=== PATIENT | male | born 1955 | race Caucasian/White ===

== ENCOUNTER 2016-09-09 13:21 | Emergency (ER) | payer OTHER ==
[2016-09-09 13:40] VITALS: BP 155/76; PULSE 73; RESP 16; TEMP 97.6
--- NOTE | 2016-09-09 14:08 | ED ---
General Adult HPI - General Chief complaint: Wound/Laceration Stated complaint: Male Time Seen by Provider: 09/09/16 13:40 Source: patient, RN notes reviewed Mode of arrival: ambulatory Limitations: no limitations - History of Present Illness Initial comments: This is a 60-year-old male presents emergency Department complaining that he has multiple pustules in his pubic hairs and on his buttocks. Patient states one of the areas in his pubic region became an abscess and was draining and that is now subsided but he has a small abscess on his buttocks at this time. Patient states this is after he had been sexually active with a woman known to have MRSA. Patient denies any fever chills per patient denies any penile drainage patient denies any burning patient denies any lesions pustules or rash on his scrotum or penis. Patient denies any abdominal pain patient denies any back pain. Patient denies any other symptoms at this time. - Related Data Previous Rx's Medication Instructions Recorded Sulfamethox-Tmp 800-160Mg [Bactrim 2 each PO Q12HR #40 tab 09/09/16 DS 800-160 mg] Allergies Allergy/AdvReac Type Severity Reaction Status Date / Time No Known Allergies Allergy Verified 09/09/16 13:40 Review of Systems ROS Statement: Those systems with pertinent positive or pertinent negative responses have been documented in the HPI. ROS Other: All systems not noted in ROS Statement are negative. Past Medical History Past Medical History: No Reported History Additional Past Medical History / Comment(s): Hepatitis C, chronic back pain History of Any Multi-Drug Resistant Organisms: None Reported Past Surgical History: Appendectomy Past Psychological History: No Psychological Hx Reported Smoking Status: Current every day smoker Past Alcohol Use History: None Reported Past Drug Use History: Marijuana General Exam - General Exam Comments Initial Comments: GENERAL Patient is well-developed and well-nourished. Patient is in mild distress. EYES Patient's pupils are equal and round. Extraocular motion is intact SKIN She has multiple pustules around some of his pubic hairs and he has a couple on his buttocks around the follicles on his buttocks there is one small abscess on the right side of his buttocks just next to the gluteal cleft NEURO The patient is alert and oriented 3 PYSCH Patient has normal interpersonal interactions. MUSCULOSKELETAL All 4 extremities and full range of motion. Limitations: no limitations Course Vital Signs 09/09/16 13:36 Temperature 97.6 F Pulse Rate 73 Respiratory 16 Rate Blood Pressure 155/76 O2 Sat by Pulse 99 Oximetry Medical Decision Making - Medical Decision Making the abscess on his buttocks was only approximately half a centimeter in diameter it was already draining. Disposition Clinical Impression: Folliculitis, MRSA (methicillin resistant staph aureus) culture positive Disposition: HOME SELF-CARE Condition: Good Instructions: MRSA (Methicillin Resistant Staphylococcus Aureus) (ED) Prescriptions: Sulfamethox-Tmp 800-160Mg [Bactrim DS 800-160 mg] 2 each PO Q12HR #40 tab Referrals: Mikael Sun MD [Primary Care Provider] - 1-2 days Time of Disposition: 14:07
== END 2016-09-09 14:15 | disposition home or self-care (01) ==
LOC: EC 13:21
DX: L73.9 Follicular disorder, unspecified (principal); B95.62 Methicillin resistant Staphylococcus aureus infection as the cause of diseases classified elsewhere; F17.200 Nicotine dependence, unspecified, uncomplicated
CPT/HCPCS: 99283

== ENCOUNTER 2017-09-24 11:23 | Emergency (ER) | payer OTHER ==
[2017-09-24 11:29] VITALS: TEMP 98
[2017-09-24] MEDS ORDERED: ORPHENADRINE 30 MG/ML 2 ML VIAL IM STA (11:44)
[2017-09-24] MEDS ORDERED: KETOROLAC 60 MG/2 ML VIAL IM STA (11:44)
--- NOTE | 2017-09-24 11:48 | ED ---
Back Pain HPI - General Chief Complaint: Back Pain/Injury Stated Complaint: Fall Time Seen by Provider: 09/24/17 11:32 Source: patient, RN notes reviewed Limitations: no limitations - History of Present Illness Initial Comments: This is a 61-year-old male with a history of chronic low back pain states he fell 4 days ago striking his lower thoracic back on some sharp rocks. He states he has some bruising and some swelling to the area he states he's got increased pain and has difficulty walking because of the pain. He has no loss of function to his lower extremities no fecal or urinary incontinence reported. This severe pain he also does state he ran out of his Suboxone about a week ago. No fevers chills nausea vomiting sweats or modifying factors. MD Complaint: back pain, back injury, fall - Related Data Previous Rx's Medication Instructions Recorded Sulfamethox-Tmp 800-160Mg [Bactrim 2 each PO Q12HR #40 tab 09/09/16 DS 800-160 mg] Cyclobenzaprine [Flexeril] 10 mg PO TID #14 tab 09/24/17 Hydrocodone/Acetaminophen [[place] 1 each PO Q6HR PRN #12 tab 09/24/17 5-325] Ibuprofen 800 mg PO Q6HR PRN #20 tablet 09/24/17 Allergies Allergy/AdvReac Type Severity Reaction Status Date / Time No Known Allergies Allergy Verified 09/24/17 11:29 Review of Systems ROS Statement: Those systems with pertinent positive or pertinent negative responses have been documented in the HPI. ROS Other: All systems not noted in ROS Statement are negative. Past Medical History Past Medical History: No Reported History Additional Past Medical History / Comment(s): Hepatitis C, chronic back pain History of Any Multi-Drug Resistant Organisms: None Reported Past Surgical History: Appendectomy Past Psychological History: No Psychological Hx Reported Smoking Status: Current every day smoker Past Alcohol Use History: None Reported Past Drug Use History: Marijuana, Prescription Drug Abuse General Exam - General Exam Comments Initial Comments: Physical well-developed well-nourished awake alert oriented 3 male Limitations: no limitations General appearance: alert, anxious, in distress Head exam: Present: atraumatic, normocephalic, normal inspection Eye exam: Present: normal appearance, PERRL, EOMI. Absent: scleral icterus, conjunctival injection, periorbital swelling ENT exam: Present: normal exam, mucous membranes moist Neck exam: Present: normal inspection, full ROM. Absent: tenderness, meningismus, lymphadenopathy Respiratory exam: Present: normal lung sounds bilaterally. Absent: respiratory distress, wheezes, rales, rhonchi, stridor Cardiovascular Exam: Present: regular rate, normal rhythm, normal heart sounds. Absent: systolic murmur, diastolic murmur, rubs, gallop, clicks Extremities exam: Present: normal inspection, full ROM, normal capillary refill. Absent: tenderness, pedal edema, joint swelling, calf tenderness Back exam: Present: tenderness, muscle spasm, paraspinal tenderness, vertebral tenderness, other (Abrasion noted over the lower thoracic spine region no definite step-off or crepitation. The exam is limited as the patient does not allow me to fully examine his lower thoracic spine due to pain. No definite step-off or crepitation as stated no increased localized warmth there is an abrasion seen at the level of proximal ALT 10.). Absent: full ROM, CVA tenderness (R), CVA tenderness (L) Psychiatric exam: Present: normal affect, anxious Skin exam: Present: warm, dry, normal color. Absent: intact Course Vital Signs 09/24/17 11:27 Temperature 98.0 F Pulse Rate 73 Respiratory 20 Rate Blood Pressure 134/80 O2 Sat by Pulse 100 Oximetry Medical Decision Making - Medical Decision Making I did discuss the findings with the patient he is feeling improved after initial medication was given. He'll be discharged on appropriate medication he is instructed to follow-up with his doctor and return when necessary ambulate and weight-bear as tolerated. - Radiology Data Radiology results: report reviewed (I did review the imaging and report or is evidence of a T11-T12 spinous process fracture this does coincide with the area the patient's pain and injury. No evidence of acute subluxation.), image reviewed Disposition Clinical Impression: Mechanical back pain, Fracture of spinous process of thoracic vertebra, Abrasion Disposition: HOME SELF-CARE Condition: Good Instructions: Acute Low Back Pain (ED), Abrasion (ED), Chronic Back Pain (ED), Thoracic Back Strain (ED), Contusion in Adults (ED) Additional Instructions: Weight-bear and ambulate as tolerated. You do have a T11 and T12 spinous process fracture. Prescriptions: Cyclobenzaprine [Flexeril] 10 mg PO TID #14 tab Hydrocodone/Acetaminophen [[place] 5-325] 1 each PO Q6HR PRN #12 tab PRN Reason: Pain Ibuprofen 800 mg PO Q6HR PRN #20 tablet PRN Reason: Pain Is patient prescribed a controlled substance at d/c from ED?: Yes When asked, does pt state using other controlled substances?: Yes If prescribed controlled substance>3 days was MAPS reviewed?: Prescribed <3 Days If opioid is for acute pain is fill amount 7 days or less?: Yes If Rx opioid, was Start Talking consent form obtained?: Yes Referrals: Mikael Sun MD [Primary Care Provider] - 1-2 days Olimpia Lopez DO [Doctor of Osteopathic Medicine] - 1-2 days
--- NOTE | 2017-09-24 12:45 | CT ---
EXAMINATION TYPE: CT [place] lumbar spine wo con DATE OF EXAM: 09/24/2017 COMPARISON: Lumbar spine 05/23/2014 HISTORY: fall and pain CT DLP: 681 mGycm Automated exposure control for dose reduction was used. Helical acquisition obtained through the [place] ac[facility] and lumbar spine. Thoracic and lumbar vertebral bodies are showing some irregularity of the spinous processes at T11 an d T12 at the tip of the process, some small comminuted fractures may be present. There is near anatom ic alignment. No significant spinal stenosis. Facet arthropathy is noted at the lower lumbar spine. D egenerative disc changes are present, there is multilevel spondylosis with some loss of disc height. There is a spinal curvature. Hypodensities are present within the liver noted incidentally which statistically are likely to repre sent cysts. Some groundglass opacity suspected within the right upper lobe is indeterminate and noted incidentally. Some basilar atelectatic changes are present. IMPRESSION: No acute subluxation. Spinous process fractures as described. There may be a right upper lobe pneumonia or alveolitis. Nonspecific liver lesions. Additional findings above.
[2017-09-24 13:31] VITALS: BP 138/69; PULSE 76; RESP 18
== END 2017-09-24 13:30 | disposition home or self-care (01) ==
LOC: EC 11:23
DX: S22.089A Unspecified fracture of T11-T12 vertebra, initial encounter for closed fracture (principal); F41.9 Anxiety disorder, unspecified; F17.200 Nicotine dependence, unspecified, uncomplicated; W01.118A Fall on same level from slipping, tripping and stumbling with subsequent striking against other sharp object, initial encounter; Y92.009 Unspecified place in unspecified non-institutional (private) residence as the place of occurrence of the external cause
CPT/HCPCS: 72128; 72131; 99283; 96372 ×2; L1830; J2360; J1885

== ENCOUNTER → 2017-10-02 | Outpatient (CLI) | payer OTHER ==
[2017-10-02 14:30] LABS: HCT 40.8 % (39.0-53.0); HGB 13.2 gm/dL (13.0-17.5); MCH 30.4 pg (25.0-35.0); MCHC 32.2 g/dL (31.0-37.0); MCV 94.2 fL (80.0-100.0); Mean Platelet Volume 6.9; Platelet Count 194 k/uL (150-450); RBC 4.33 m/uL (4.30-5.90); RDW 12.8 % (11.5-15.5); WBC 8.7 k/uL (3.8-10.6)
[2017-10-02 14:38] LABS: ALT 35 U/L (21-72); AST 31 U/L (17-59); Albumin 3.9 g/dL (3.5-5.0); Alkaline Phosphatase 77 U/L (38-126); Anion Gap 5 mmol/L; Blood Urea Nitrogen 15 mg/dL (9-20); Calcium 8.8 mg/dL (8.4-10.2); Carbon Dioxide 31 mmol/L (22-30); Chloride 104 mmol/L (98-107); Glucose 113 mg/dL (74-99); Sodium 140 mmol/L (137-145); Total Bilirubin 0.4 mg/dL (0.2-1.3); Total Protein 6.6 g/dL (6.3-8.2)
[2017-10-02 15:06] LABS: Prostate Specific Antigen 1.41 ng/mL (0.00-4.00)
[2017-10-02 19:53] LABS: Hepatitis B Core IgM Reactive (Non-Reactive)
[2017-10-03 13:43] LABS: Hepatitis A Antibody IgM Non-Reactive (Non-Reactive)
== END | disposition home or self-care (01) ==
LOC: LABWHC1 13:32
PROVIDERS: ATTEND Family Medicine
DX: Z00.00 Encounter for general adult medical examination without abnormal findings (principal); R53.83 Other fatigue; Z79.899 Other long term (current) drug therapy; Z12.5 Encounter for screening for malignant neoplasm of prostate
CPT/HCPCS: 36415; 80053; 80074; 84153; 85027

== ENCOUNTER 2018-01-29 14:22 | Inpatient (IN) | payer OTHER ==
[2018-01-29] MEDS ORDERED: SODIUM CHLORIDE 0.9% 1,000 ML IV STA ×2 (15:51)
[2018-01-29] MEDS ORDERED: IPRATROPIUM 0.5 MG/2.5 ML NEBU INHALATION STA (15:51)
[2018-01-29] MEDS ORDERED: methylPREDNISolone SOD SUCCI 125 MG/2 ML VIAL IV STA (15:51)
[2018-01-29] MEDS ORDERED: ALBUTEROL NEBULIZED 2.5 MG/3 ML INHALATION STA (15:51)
[2018-01-29] MEDS ORDERED: AZITHROMYCIN 500 MG in SODIUM CHLORIDE 0.9% 250 ML IVPB STA (15:51)
[2018-01-29 16:37] LABS: Basophils % (A) 0 %; Eosinophils % (A) 0 %; HCT 34.9 % (39.0-53.0); HGB 11.4 gm/dL (13.0-17.5); Lymphocytes # (A) 1.3 k/uL (1.0-4.8); Lymphocytes % (A) 12 %; MCH 30.2 pg (25.0-35.0); MCHC 32.7 g/dL (31.0-37.0); MCV 92.3 fL (80.0-100.0); Mean Platelet Volume 7.2; Monocytes # (A) 0.5 k/uL (0-1.0); Monocytes % (A) 5 %; Neutrophils # (A) 9.1 k/uL (1.3-7.7); Neutrophils % (A) 82 %; Platelet Count 178 k/uL (150-450); RBC 3.78 m/uL (4.30-5.90); RDW 12.5 % (11.5-15.5); WBC 11.1 k/uL (3.8-10.6)
[2018-01-29 16:44] LABS: Partial Thromboplastin Time 27.7 sec (22.0-30.0); Prothrombin Time 10.1 sec (9.0-12.0)
--- NOTE | 2018-01-29 16:47 | ED ---
SOB HPI - General Chief Complaint: Shortness of Breath Stated Complaint: poss pneumonia Time Seen by Provider: 01/29/18 15:23 Source: patient, RN notes reviewed, old records reviewed Mode of arrival: ambulatory Limitations: no limitations - History of Present Illness Initial Comments: This is a 62-year-old male to ER for evaluation. Patient presents today for evaluation regards to cough congestion and inability to catch his breath. Patient with any activity or exertion a significant shortness of breath history of COPD not on oxygen. Patient currently not taking any outpatient treatments. Patient does continue to smoke cigarettes. Patient denies any fevers does have increased cough or congestion. No recent travel history or known sick contacts. MD Complaint: shortness of breath, cough -: days(s) (3) Severity: mild Severity scale (1-10): 3 Quality: aching Consistency: constant Improves With: nothing Worsens With: nothing Known History Of: COPD, asthma Context: recent URI Associated Symptoms: denies other symptoms Treatments Prior to Arrival: none - Related Data Home Medications Medication Instructions Recorded Confirmed Methadone HCl [Methadone Intensol] 80 mg PO QAM 01/29/18 01/29/18 Allergies Allergy/AdvReac Type Severity Reaction Status Date / Time No Known Allergies Allergy Verified 01/29/18 15:37 Review of Systems ROS Statement: Those systems with pertinent positive or pertinent negative responses have been documented in the HPI. ROS Other: All systems not noted in ROS Statement are negative. Past Medical History Past Medical History: No Reported History Additional Past Medical History / Comment(s): Hepatitis C, chronic back pain History of Any Multi-Drug Resistant Organisms: MRSA Date of last positivie culture/infection: 2016 MDRO Source:: butt Past Surgical History: Appendectomy Past Psychological History: No Psychological Hx Reported Smoking Status: Current every day smoker Past Alcohol Use History: None Reported Past Drug Use History: Marijuana, Prescription Drug Abuse General Exam Limitations: no limitations General appearance: alert, in no apparent distress, anxious Head exam: Present: atraumatic, normocephalic, normal inspection Eye exam: Present: normal appearance, PERRL, EOMI. Absent: scleral icterus, conjunctival injection, periorbital swelling ENT exam: Present: normal exam, mucous membranes moist Neck exam: Present: normal inspection. Absent: tenderness, meningismus, lymphadenopathy Respiratory exam: Present: normal lung sounds bilaterally, wheezes, accessory muscle use, decreased breath sounds, prolonged expiratory. Absent: respiratory distress, rales, rhonchi, stridor Cardiovascular Exam: Present: regular rate, normal rhythm, normal heart sounds. Absent: systolic murmur, diastolic murmur, rubs, gallop, clicks GI/Abdominal exam: Present: soft, normal bowel sounds. Absent: distended, tenderness, guarding, rebound, rigid Extremities exam: Present: normal inspection, full ROM, normal capillary refill. Absent: tenderness, pedal edema, joint swelling, calf tenderness Back exam: Present: normal inspection Neurological exam: Present: alert, oriented X3, CN II-XII intact Psychiatric exam: Present: normal affect, normal mood Skin exam: Present: warm, dry, intact, normal color. Absent: rash Course Vital Signs 01/29/18 01/29/18 01/29/18 14:51 16:01 16:21 Temperature 98.2 F Pulse Rate 81 77 74 Respiratory 18 22 Rate Blood Pressure 126/68 131/80 O2 Sat by Pulse 93 L 95 Oximetry 01/29/18 01/29/18 01/29/18 16:30 16:43 17:16 Temperature 101 F H Pulse Rate 74 89 Respiratory Rate Blood Pressure 126/76 O2 Sat by Pulse Oximetry - Reevaluation(s) Reevaluation #1: 01/29/18 17:41 Medical record is reviewed Patient does have no significant improvement in breathing currently Medical Decision Making - Medical Decision Making 62 male the ER for evaluation per patient has a for cough or congestion, significant wheezing with exertional dyspnea. Patient be admitted for IV steroids and breathing treatments. Pulmonary evaluation - Lab Data Result diagrams: 01/29/18 16:00 01/29/18 16:00 Lab Results 01/29/18 01/29/18 01/29/18 Range/Units 16:00 16:00 16:00 WBC 11.1 H (3.8-10.6) k/uL RBC 3.78 L (4.30-5.90) m/uL Hgb 11.4 L (13.0-17.5) gm/dL Hct 34.9 L (39.0-53.0) % MCV 92.3 (80.0-100.0) fL MCH 30.2 (25.0-35.0) pg MCHC 32.7 (31.0-37.0) g/dL RDW 12.5 (11.5-15.5) % Plt Count 178 (150-450) k/uL Neutrophils % 82 % Lymphocytes % 12 % Monocytes % 5 % Eosinophils % 0 % Basophils % 0 % Neutrophils # 9.1 H (1.3-7.7) k/uL Lymphocytes # 1.3 (1.0-4.8) k/uL Monocytes # 0.5 (0-1.0) k/uL Eosinophils # 0.0 (0-0.7) k/uL Basophils # 0.0 (0-0.2) k/uL PT (9.0-12.0) sec INR (<1.2) APTT (22.0-30.0) sec Sodium 132 L (137-145) mmol/L Potassium 4.8 (3.5-5.1) mmol/L Chloride 99 (98-107) mmol/L Carbon Dioxide 27 (22-30) mmol/L Anion Gap 6 mmol/L BUN 15 (9-20) mg/dL Creatinine 0.72 (0.66-1.25) mg/dL Est GFR (CKD-EPI)AfAm >90 (>60 ml/min/1.73 sqM) Est GFR (CKD-EPI)NonAf >90 (>60 ml/min/1.73 sqM) Glucose 74 (74-99) mg/dL Calcium 8.3 L (8.4-10.2) mg/dL Magnesium 2.1 (1.6-2.3) mg/dL Total Bilirubin 0.4 (0.2-1.3) mg/dL AST 72 H (17-59) U/L ALT 58 (21-72) U/L Alkaline Phosphatase 84 (38-126) U/L Total Creatine Kinase 445 H (55-170) U/L CK-MB (CK-2) 3.9 H (0.0-2.4) ng/mL CK-MB (CK-2) Rel Index 0.9 Troponin I <0.012 (0.000-0.034) ng/mL NT-Pro-B Natriuret Pep pg/mL Total Protein 6.2 L (6.3-8.2) g/dL Albumin 3.1 L (3.5-5.0) g/dL 01/29/18 01/29/18 Range/Units 16:00 16:00 WBC (3.8-10.6) k/uL RBC (4.30-5.90) m/uL Hgb (13.0-17.5) gm/dL Hct (39.0-53.0) % MCV (80.0-100.0) fL MCH (25.0-35.0) pg MCHC (31.0-37.0) g/dL RDW (11.5-15.5) % Plt Count (150-450) k/uL Neutrophils % % Lymphocytes % % Monocytes % % Eosinophils % % Basophils % % Neutrophils # (1.3-7.7) k/uL Lymphocytes # (1.0-4.8) k/uL Monocytes # (0-1.0) k/uL Eosinophils # (0-0.7) k/uL Basophils # (0-0.2) k/uL PT 10.1 (9.0-12.0) sec INR 1.0 (<1.2) APTT 27.7 (22.0-30.0) sec Sodium (137-145) mmol/L Potassium (3.5-5.1) mmol/L Chloride (98-107) mmol/L Carbon Dioxide (22-30) mmol/L Anion Gap mmol/L BUN (9-20) mg/dL Creatinine (0.66-1.25) mg/dL Est GFR (CKD-EPI)AfAm (>60 ml/min/1.73 sqM) Est GFR (CKD-EPI)NonAf (>60 ml/min/1.73 sqM) Glucose (74-99) mg/dL Calcium (8.4-10.2) mg/dL Magnesium (1.6-2.3) mg/dL Total Bilirubin (0.2-1.3) mg/dL AST (17-59) U/L ALT (21-72) U/L Alkaline Phosphatase (38-126) U/L Total Creatine Kinase (55-170) U/L CK-MB (CK-2) (0.0-2.4) ng/mL CK-MB (CK-2) Rel Index Troponin I (0.000-0.034) ng/mL NT-Pro-B Natriuret Pep 416 pg/mL Total Protein (6.3-8.2) g/dL Albumin (3.5-5.0) g/dL - EKG Data -: EKG Interpreted by Me (EKG shows normal sinus rhythm rate of 73, DC 184, QRS 80, QTC 423) EKG shows normal: sinus rhythm Rate: normal - Radiology Data Radiology results: report reviewed (Chest x-rays negative for acute disease), image reviewed Disposition Clinical Impression: Acute exacerbation of chronic obstructive airways disease Disposition: ADMITTED IP TO THIS HOSP Condition: Fair Is patient prescribed a controlled substance at d/c from ED?: No Referrals: None,Stated [Primary Care Provider] - 1-2 days
[2018-01-29 16:53] LABS: Creatine Kinase 445 U/L (55-170)
[2018-01-29 16:55] LABS: ALT 58 U/L (21-72); AST 72 U/L (17-59); Albumin 3.1 g/dL (3.5-5.0); Alkaline Phosphatase 84 U/L (38-126); Anion Gap 6 mmol/L; Blood Urea Nitrogen 15 mg/dL (9-20); Calcium 8.3 mg/dL (8.4-10.2); Carbon Dioxide 27 mmol/L (22-30); Chloride 99 mmol/L (98-107); Glucose 74 mg/dL (74-99); Magnesium 2.1 mg/dL (1.6-2.3); Potassium 4.8 mmol/L (3.5-5.1); Sodium 132 mmol/L (137-145); Total Bilirubin 0.4 mg/dL (0.2-1.3); Total Protein 6.2 g/dL (6.3-8.2)
[2018-01-29 17:05] LABS: Creatine Kinase MB 3.9 ng/mL (0.0-2.4); Troponin I <0.012 ng/mL (0.000-0.034)
--- NOTE | 2018-01-29 17:11 | XR ---
EXAMINATION TYPE: XR chest 2V DATE OF EXAM: 01/29/2018 COMPARISON: NONE HISTORY: Short of breath and cough TECHNIQUE: Frontal and lateral views of the chest are obtained. FINDINGS: Heart and mediastinum are normal. There is mild coarsening of interstitial markings. There is no heart failure. Costophrenic angles are clear. IMPRESSION: Coarse central markings could relate to bronchitis. Normal heart. No heart failure.
[2018-01-29] MEDS ORDERED: NALOXONE 0.4 MG/ML 1 ML VIAL IV PRN (18:10)
[2018-01-29] MEDS ORDERED: HYDROcodone/APAP 5-325MG 1 EACH TAB PO PRN (18:10)
[2018-01-29] MEDS ORDERED: ACETAMINOPHEN TAB 325 MG TAB PO PRN (18:10)
[2018-01-29] MEDS ORDERED: POLYETHYLENE GLYCOL 3350 17 GM POWD.PACK PO STA (18:31)
--- NOTE | 2018-01-29 18:37 | P.HPIM ---
History of Present Illness H&P Date: 01/29/18 Chief Complaint: COPD exacerbation [age] male with past medical history of COPD and heroin abuse presents the ED for cough, shortness of breath and wheezing. Patient reports a cough productive of yellow and dark green sputum over the past month. Cough is associated with runny nose, nasal congestion and subjective fevers. Patient reports recently losing his PCP, has been out of an inhaler for the past month as well. Patient also reports shortness of breath, wheezing and increased difficulties breathing with the onset of his upper respiratory infection. He denies any exertional shortness of breath or orthopnea. He has a history of heroin abuse, including IVDU, has been clean for 6 weeks on the methadone program on and [place] at [facility]. Patient also has a history of hepatitis C, untreated. He denies any headaches, lower extremity edema, nausea, vomiting, chest pain, palpitations, changes in urination. No changes in appetite or weight. He does report constipation. Last bowel movement about 3-4 weeks ago. In the ED, CBC showed a mild leukocytosis of 11.1. Hemoglobin is 11.4 with hematocrit of 34.9. CMP showed a sodium of 132, calcium of 8.3, AST of 72. His total CPK was 445. Initial troponin was less than 0.012. Chest x-ray shows findings consistent with chronic bronchitis. Patient is admitted for COPD exacerbation. Review of Systems All systems: negative Past Medical History Past Medical History: No Reported History Additional Past Medical History / Comment(s): Hepatitis C, chronic back pain History of Any Multi-Drug Resistant Organisms: MRSA Date of last positivie culture/infection: 2016 MDRO Source:: butt Past Surgical History: Appendectomy Past Psychological History: No Psychological Hx Reported Smoking Status: Current every day smoker Past Alcohol Use History: None Reported Past Drug Use History: Marijuana, Prescription Drug Abuse Medications and Allergies Home Medications Medication Instructions Recorded Confirmed Type Methadone HCl [Methadone Intensol] 80 mg PO QAM 01/29/18 01/29/18 History Allergies Allergy/AdvReac Type Severity Reaction Status Date / Time No Known Allergies Allergy Verified 01/29/18 15:37 Physical Exam Vitals: Vital Signs Temp Pulse Resp BP Pulse Ox 01/29/18 17:30 85 22 103/61 94 L 01/29/18 17:16 89 01/29/18 17:00 85 22 126/76 97 01/29/18 16:43 74 01/29/18 16:30 101 F H 126/76 01/29/18 16:21 74 01/29/18 16:01 77 22 131/80 95 01/29/18 14:51 98.2 F 81 18 126/68 93 L Intake and Output 01/29/18 01/29/18 01/29/18 06:59 14:59 22:59 Other: Weight 58.967 kg General: [non toxic], [no distress], [appears at stated age] Derm: [warm], [dry] Head: [atraumatic], [normocephalic], [symmetric] Eyes: [EOMI], [no lid lag], [anicteric sclera] Mouth: [no lip lesion], [mucus membranes moist] Cardiovascular: [S1S2 reg], [no murmur], [positive posterior tibial pulse bilateral], Lungs: [Coarse breath sounds bilateral with expiratory wheezing], [no accessory muscle use] Abdominal: [Hard], [ nontender to palpation], [no guarding], [no appreciable organomegaly] Ext: [no gross muscle atrophy], [no edema], [no contractures] Neuro: [ CN II-XI grossly intact], [no focal neuro deficits] Psych: [Alert], [oriented], [appropriate affect] Results CBC & Chem 7: 01/29/18 16:00 01/29/18 16:00 Labs: Abnormal Lab Results - Last 24 Hours (Table) 01/29/18 01/29/18 01/29/18 Range/Units 16:00 16:00 16:00 WBC 11.1 H (3.8-10.6) k/uL RBC 3.78 L (4.30-5.90) m/uL Hgb 11.4 L (13.0-17.5) gm/dL Hct 34.9 L (39.0-53.0) % Neutrophils # 9.1 H (1.3-7.7) k/uL Sodium 132 L (137-145) mmol/L Calcium 8.3 L (8.4-10.2) mg/dL AST 72 H (17-59) U/L Total Creatine Kinase 445 H (55-170) U/L CK-MB (CK-2) 3.9 H (0.0-2.4) ng/mL Total Protein 6.2 L (6.3-8.2) g/dL Albumin 3.1 L (3.5-5.0) g/dL Thrombosis Risk Factor Assmnt - Choose All That Apply Any of the Below Risk Factors Present?: Yes Each Factor Represents 1 point: Abnormal pulmonary function (COPD) Other Risk Factors: Yes Each Risk Factor Represents 2 Points: Age 61-74 years Thrombosis Risk Factor Assessment Total Risk Factor Score: 3 Thrombosis Risk Factor Assessment Level: Moderate Risk Assessment and Plan Assessment: Assessment and Plan 1. COPD exacerbation: Likely triggered by smoking, medication non compliance and viral URI/chronic bronchitis. Patient is afebrile with a mild leukocytosis of 11.1. CXR findings consistent with acute bronchitis. O2 per NC to maintain O2 sat > 92%. Continue DuoNeb QID scheduled, Symbicort 2 puff BID, SoluMedrol 60 mg IV Q6H. Start Azithromycin 500 mg PO QD x 3 days for acute bronchitis. FU BCx, EKG to check for QTc 2. Substance abuse: States takes Methadone 80 mg PO QD at [address] [facility] [employer]. Will need to confirm in the AM. Habitrol 21 mg SUBCUT QD. 3. Constipation: 3-4 weeks ago. Start Docusate 100 mg PO QD, Miralax x 1 now. KUB if no BM tomorrow. 4. Leukocytosis: Mild elevation at 11.1. Likely reactive vs. acute bronchitis. Patient is afebrile. Daily CBC. 5. Hep C: Reason for transaminitis (AST of 72). Will need good follow up outPT. 6. DVT/GI Prophylaxis: Heparin 5000 units BID.
[2018-01-29] MEDS: AZITHROMYCIN 500 MG TAB PO SCH (19:20)
[2018-01-29] MEDS: methylPREDNISolone SOD SUCCI 125 MG/2 ML VIAL IV SCH (19:20)
[2018-01-29] MEDS: DOCUSATE 100 MG CAP PO SCH (19:20)
[2018-01-29] MEDS: HEPARIN SODIUM,PORCINE 5,000 UNIT/ML 1 ML VIAL SQ SCH (19:21)
[2018-01-29] MEDS: SODIUM CHLORIDE 0.9% 1,000 ML IV SCH (19:21)
[2018-01-29 20:02] LABS: Glucose,Whole Blood 153 mg/dL (75-99)
[2018-01-29] MEDS: IPRATROPIUM-ALBUTEROL 3 ML NEB INHALATION SCH (20:07)
[2018-01-29] MEDS: SYMBICORT 160-4.5 MCG INHALER INHALATION SCH (20:07)
[2018-01-30] MEDS: methylPREDNISolone SOD SUCCI 125 MG/2 ML VIAL IV SCH ×5 (00:04→23:40)
[2018-01-30] MEDS: SODIUM CHLORIDE 0.9% 1,000 ML IV SCH ×3 (03:58→20:12)
[2018-01-30 05:29] VITALS: BMI 20.3
[2018-01-30 06:59] LABS: Glucose,Whole Blood 156 mg/dL (75-99)
[2018-01-30 08:10] LABS: Basophils % (A) 0 %; Eosinophils % (A) 0 %; HCT 36.8 % (39.0-53.0); HGB 11.8 gm/dL (13.0-17.5); Lymphocytes # (A) 0.7 k/uL (1.0-4.8); Lymphocytes % (A) 11 %; MCH 30.4 pg (25.0-35.0); MCHC 32.1 g/dL (31.0-37.0); MCV 94.5 fL (80.0-100.0); Mean Platelet Volume 7.2; Monocytes # (A) 0.1 k/uL (0-1.0); Monocytes % (A) 2 %; Neutrophils # (A) 5.7 k/uL (1.3-7.7); Neutrophils % (A) 87 %; Platelet Count 177 k/uL (150-450); RDW 12.7 % (11.5-15.5); WBC 6.5 k/uL (3.8-10.6)
[2018-01-30] MEDS: DOCUSATE 100 MG CAP PO SCH ×2 (08:17→20:12)
[2018-01-30] MEDS: HEPARIN SODIUM,PORCINE 5,000 UNIT/ML 1 ML VIAL SQ SCH ×2 (08:17→20:12)
[2018-01-30] MEDS: AZITHROMYCIN 500 MG TAB PO SCH (08:17)
[2018-01-30] MEDS: NICOTINE 21MG/24HR PATCH TRANSDERM SCH ×2 (08:17→08:19)
[2018-01-30 08:37] LABS: ALT 52 U/L (21-72); AST 48 U/L (17-59); Alkaline Phosphatase 77 U/L (38-126); Anion Gap 7 mmol/L; Blood Urea Nitrogen 18 mg/dL (9-20); Calcium 8.8 mg/dL (8.4-10.2); Carbon Dioxide 26 mmol/L (22-30); Chloride 110 mmol/L (98-107); Glucose 154 mg/dL (74-99); Potassium 4.4 mmol/L (3.5-5.1); Sodium 143 mmol/L (137-145); Total Bilirubin 0.4 mg/dL (0.2-1.3); Total Protein 6.1 g/dL (6.3-8.2)
[2018-01-30] MEDS: IPRATROPIUM-ALBUTEROL 3 ML NEB INHALATION SCH ×4 (09:12→19:20)
[2018-01-30] MEDS: SYMBICORT 160-4.5 MCG INHALER INHALATION SCH ×2 (09:12→19:20)
[2018-01-30 11:34] LABS: Glucose,Whole Blood 151 mg/dL (75-99)
[2018-01-30] MEDS: METHADONE 10 MG TAB PO SCH (13:50)
[2018-01-30 17:05] LABS: Glucose,Whole Blood 138 mg/dL (75-99)
--- NOTE | 2018-01-30 18:46 | P.PN ---
Subjective Progress Note Date: 01/30/18 Principal diagnosis: COPD exacerbation Patient was seen and examined. No acute events overnight. Patient reports continued cough and SOB. No changes from yesterday. States is homeless. Objective - Vital Signs Vital signs: Vital Signs Temp 97.6 F 01/30/18 11:55 Pulse 80 01/30/18 16:38 Resp 17 01/30/18 11:55 BP 105/61 01/30/18 11:55 Pulse Ox 93 L 01/30/18 11:55 Intake & Output 01/29/18 01/30/18 01/30/18 18:59 06:59 18:59 Intake Total 680 Output Total 700 Balance -20 Weight 58.967 kg 58.967 kg Intake: Oral 680 Output: Urine 700 Other: Voiding Method Toilet Toilet Urinal Urinal # Voids 2 - Exam General: [non toxic], [no distress], [appears at stated age] Derm: [warm], [dry] Head: [atraumatic], [normocephalic], [symmetric] Eyes: [EOMI], [no lid lag], [anicteric sclera] Mouth: [no lip lesion], [mucus membranes moist] Cardiovascular: [S1S2 reg], [no murmur], [positive posterior tibial pulse bilateral], Lungs: [Coarse breath sounds bilateral with expiratory wheezing], [no accessory muscle use] Abdominal: [Hard], [ nontender to palpation], [no guarding], [no appreciable organomegaly] Ext: [no gross muscle atrophy], [no edema], [no contractures] Neuro: [ CN II-XI grossly intact], [no focal neuro deficits] Psych: [Alert], [oriented], [appropriate affect] - Labs CBC & Chem 7: 01/30/18 07:35 01/30/18 07:35 Labs: Abnormal Lab Results - Last 24 Hours (Table) 01/29/18 01/30/18 01/30/18 Range/Units 20:01 06:55 07:35 RBC 3.90 L (4.30-5.90) m/uL Hgb 11.8 L (13.0-17.5) gm/dL Hct 36.8 L (39.0-53.0) % Lymphocytes # 0.7 L (1.0-4.8) k/uL Chloride (98-107) mmol/L Glucose (74-99) mg/dL POC Glucose (mg/dL) 153 H 156 H (75-99) mg/dL Total Protein (6.3-8.2) g/dL Albumin (3.5-5.0) g/dL 01/30/18 01/30/18 01/30/18 Range/Units 07:35 11:28 17:04 RBC (4.30-5.90) m/uL Hgb (13.0-17.5) gm/dL Hct (39.0-53.0) % Lymphocytes # (1.0-4.8) k/uL Chloride 110 H (98-107) mmol/L Glucose 154 H (74-99) mg/dL POC Glucose (mg/dL) 151 H 138 H (75-99) mg/dL Total Protein 6.1 L (6.3-8.2) g/dL Albumin 3.0 L (3.5-5.0) g/dL Microbiology - Last 24 Hours (Table) 01/29/18 16:00 Blood Culture - Preliminary Blood No Growth after 24 hours Assessment and Plan Assessment: Assessment and Plan 1. COPD exacerbation: Likely triggered by smoking, medication non compliance and viral URI/chronic bronchitis. Patient is afebrile with a mild leukocytosis of 11.1. CXR findings consistent with acute bronchitis. O2 per NC to maintain O2 sat > 92%. Continue DuoNeb QID scheduled, Symbicort 2 puff BID, SoluMedrol 60 mg IV Q6H. Start Azithromycin 500 mg PO QD x 3 days for acute bronchitis BCx prelim negative after 24H. FU BCx, EKG to check for QTc 2. Substance abuse: States takes Methadone 80 mg PO QD at [address] [facility]. Verified by pharmacy. Habitrol 21 mg SUBCUT QD. 3. Constipation: 3-4 weeks ago. Start Docusate 100 mg PO QD, Miralax x 1 now. KUB if no BM tomorrow. 4. Hep C: Reason for transaminitis (AST of 72). Will need good follow up outPT. 5. DVT/GI Prophylaxis: Heparin 5000 units BID. Resolved: Leukocytosis Patient is pending clinical improvement.
[2018-01-30 20:38] LABS: Glucose,Whole Blood 186 mg/dL (75-99)
[2018-01-31] MEDS: methylPREDNISolone SOD SUCCI 125 MG/2 ML VIAL IV SCH ×4 (06:07→23:45)
[2018-01-31 07:19] LABS: Glucose,Whole Blood 142 mg/dL (75-99)
[2018-01-31] MEDS: IPRATROPIUM-ALBUTEROL 3 ML NEB INHALATION SCH ×4 (08:26→19:15)
[2018-01-31] MEDS: SYMBICORT 160-4.5 MCG INHALER INHALATION SCH ×2 (08:26→19:14)
[2018-01-31] MEDS: AZITHROMYCIN 500 MG TAB PO SCH (09:14)
[2018-01-31] MEDS: NICOTINE 21MG/24HR PATCH TRANSDERM SCH (09:14)
[2018-01-31] MEDS: METHADONE 10 MG TAB PO SCH (09:14)
[2018-01-31] MEDS: DOCUSATE 100 MG CAP PO SCH ×2 (09:15→20:00)
[2018-01-31] MEDS: HEPARIN SODIUM,PORCINE 5,000 UNIT/ML 1 ML VIAL SQ SCH ×2 (09:15→20:00)
[2018-01-31 11:15] LABS: Glucose,Whole Blood 142 mg/dL (75-99)
[2018-01-31] MEDS ORDERED: BISACODYL 10 MG SUPP RECTAL STA (12:08)
--- NOTE | 2018-01-31 12:13 | P.PN ---
Subjective Progress Note Date: 01/31/18 Principal diagnosis: COPD exacerbation Patient seen and examined. No acute events overnight per patient reports no improvement in his breathing. Continues with shortness of breath with wheezing. Continues to cough up sputum. He also complains of constipation. Last bowel movement was 3-4 weeks ago. He received Dulcolax by mouth and MiraLAX on admission without relief. He denies any chest pain or palpitations. He is saturating 92% on RA. Objective - Vital Signs Vital signs: Vital Signs Temp 96.9 F L 01/31/18 05:00 Pulse 82 01/31/18 11:49 Resp 16 01/31/18 08:00 BP 130/76 01/31/18 05:00 Pulse Ox 95 01/31/18 05:00 Intake & Output 01/30/18 01/31/18 01/31/18 18:59 06:59 18:59 Intake Total 680 590 Output Total 700 Balance -20 590 Weight 58.967 kg Intake: Oral 680 590 Output: Urine 700 Other: Voiding Method Toilet Toilet Toilet Urinal Urinal Urinal # Voids 2 # Bowel Movements 0 - Exam General: [non toxic], [no distress], [appears at stated age] Derm: [warm], [dry] Head: [atraumatic], [normocephalic], [symmetric] Eyes: [EOMI], [no lid lag], [anicteric sclera] Mouth: [no lip lesion], [mucus membranes moist] Cardiovascular: [S1S2 reg], [no murmur], [positive DPl pulse bilateral] Lungs: [Coarse breath sounds bilateral with expiratory wheezing], [no accessory muscle use] Abdominal: [Hard], [ nontender to palpation], [no guarding], [no appreciable organomegaly] Ext: [no gross muscle atrophy], [no edema], [no contractures] Neuro: [no focal neuro deficits] Psych: [Alert], [oriented], [appropriate affect] - Labs CBC & Chem 7: 01/30/18 07:35 01/30/18 07:35 Labs: Abnormal Lab Results - Last 24 Hours (Table) 01/30/18 01/30/18 01/31/18 Range/Units 17:04 20:37 07:18 POC Glucose (mg/dL) 138 H 186 H 142 H (75-99) mg/dL 01/31/18 Range/Units 11:13 POC Glucose (mg/dL) 142 H (75-99) mg/dL Microbiology - Last 24 Hours (Table) 01/29/18 16:00 Blood Culture - Preliminary Blood No Growth after 24 hours Assessment and Plan Assessment: Assessment and Plan 1. COPD exacerbation: Likely triggered by smoking, medication non compliance and viral URI/chronic bronchitis. Patient is afebrile with a mild leukocytosis of 11.1. CXR findings consistent with acute bronchitis. O2 per NC to maintain O2 sat > 92%. Continue DuoNeb QID scheduled, Symbicort 2 puff BID, SoluMedrol 60 mg IV Q6H. Start Azithromycin 500 mg PO QD x 3 days for acute bronchitis BCx prelim negative after 24H. FU BCx 2. Substance abuse: States takes Methadone 80 mg PO QD at [address] [facility]. Verified by pharmacy. Habitrol 21 mg SUBCUT QD. 3. Constipation: 3-4 weeks ago. Docusate 100 mg pre RECT x 1, Miralax x 1 now. FU KUB 4. Hep C: Reason for transaminitis (AST of 72). Will need good follow up outPT. 5. DVT/GI Prophylaxis: Heparin 5000 units BID. Resolved: Leukocytosis Patient is pending clinical improvement.
[2018-01-31] MEDS: SODIUM CHLORIDE 0.9% 1,000 ML IV SCH ×2 (12:37→18:04)
[2018-01-31] MEDS: POLYETHYLENE GLYCOL 3350 17 GM POWD.PACK PO SCH (12:42)
--- NOTE | 2018-01-31 13:42 | XR ---
EXAMINATION TYPE: XR KUB portable , 2 VIEWS DATE OF EXAM ORDERED: 01/31/2018 HISTORY: Abdominal pain, constipation. COMPARISON: None. FINDINGS: The lung bases are clear. Within the abdomen, the abdominal gas pattern is within normal limits. There is no evidence of obstru ction or free air. There is a moderate amount of stool within the colon. No unusual calcifications ar e seen. IMPRESSION: CONSTIPATION.
[2018-01-31 17:31] LABS: Glucose,Whole Blood 146 mg/dL (75-99)
[2018-01-31 19:49] LABS: Glucose,Whole Blood 215 mg/dL (75-99)
[2018-02-01] MEDS: SODIUM CHLORIDE 0.9% 1,000 ML IV SCH ×2 (04:33→19:28)
[2018-02-01] MEDS: methylPREDNISolone SOD SUCCI 125 MG/2 ML VIAL IV SCH ×3 (06:14→19:30)
[2018-02-01] MEDS: SYMBICORT 160-4.5 MCG INHALER INHALATION SCH ×2 (06:47→20:37)
[2018-02-01] MEDS: IPRATROPIUM-ALBUTEROL 3 ML NEB INHALATION SCH ×4 (06:47→20:37)
[2018-02-01 06:57] LABS: Glucose,Whole Blood 101 mg/dL (75-99)
[2018-02-01 08:10] LABS: HCT 34.5 % (39.0-53.0); HGB 11.1 gm/dL (13.0-17.5); MCH 30.2 pg (25.0-35.0); MCHC 32.3 g/dL (31.0-37.0); MCV 93.6 fL (80.0-100.0); Mean Platelet Volume 7.4; Platelet Count 210 k/uL (150-450); RBC 3.69 m/uL (4.30-5.90); WBC 10.2 k/uL (3.8-10.6)
[2018-02-01 08:26] LABS: ALT 64 U/L (21-72); AST 39 U/L (17-59); Albumin 2.9 g/dL (3.5-5.0); Alkaline Phosphatase 71 U/L (38-126); Anion Gap 6 mmol/L; Blood Urea Nitrogen 24 mg/dL (9-20); Calcium 8.8 mg/dL (8.4-10.2); Carbon Dioxide 26 mmol/L (22-30); Chloride 113 mmol/L (98-107); Creatine Kinase 91 U/L (55-170); Glucose 95 mg/dL (74-99); Potassium 4.3 mmol/L (3.5-5.1); Sodium 145 mmol/L (137-145); Total Bilirubin 0.3 mg/dL (0.2-1.3); Total Protein 5.9 g/dL (6.3-8.2)
[2018-02-01] MEDS: METHADONE 10 MG TAB PO SCH (10:35)
[2018-02-01] MEDS: AZITHROMYCIN 500 MG TAB PO SCH (10:36)
[2018-02-01] MEDS: HEPARIN SODIUM,PORCINE 5,000 UNIT/ML 1 ML VIAL SQ SCH ×2 (10:36→19:31)
[2018-02-01] MEDS: DOCUSATE 100 MG CAP PO SCH ×2 (10:36→19:30)
[2018-02-01] MEDS: NICOTINE 21MG/24HR PATCH TRANSDERM SCH (10:37)
[2018-02-01] MEDS: POLYETHYLENE GLYCOL 3350 17 GM POWD.PACK PO SCH (10:38)
[2018-02-01 11:58] LABS: Glucose,Whole Blood 112 mg/dL (75-99)
--- NOTE | 2018-02-01 13:58 | P.PN ---
Subjective Progress Note Date: 02/01/18 Principal diagnosis: COPD exacerbation Patient seen and examined. No acute events overnight. Patient continues to complain of cough productive of yellow sputum. Patient reports that he can't cough up the sputum. He continues to report shortness of breath, similar to admission. He is saturating 94% on 2 L nasal cannula. Patient reports a large bowel movement this morning. Objective - Vital Signs Vital signs: Vital Signs Temp 97.1 F L 02/01/18 05:00 Pulse 74 02/01/18 12:51 Resp 16 02/01/18 05:00 BP 137/76 02/01/18 05:00 Pulse Ox 94 L 02/01/18 05:00 Intake & Output 01/31/18 02/01/18 02/01/18 18:59 06:59 18:59 Intake Total 240 710 Balance 240 710 Weight 58.967 kg Intake: Oral 240 710 Other: Voiding Method Toilet Toilet Urinal Urinal # Voids 2 3 # Bowel Movements 1 - Exam General: [non toxic], [no distress], [appears at stated age] Derm: [warm], [dry] Head: [atraumatic], [normocephalic], [symmetric] Eyes: [EOMI], [no lid lag], [anicteric sclera] Mouth: [no lip lesion], [mucus membranes moist] Cardiovascular: [S1S2 reg], [no murmur], [positive DPl pulse bilateral] Lungs: [Decreased breath sounds bilaterally with mild expiratory wheezing, improved from yesterday], [no accessory muscle use] Abdominal: [Hard], [ nontender to palpation], [no guarding], [no appreciable organomegaly] Ext: [no gross muscle atrophy], [no edema], [no contractures] Neuro: [no focal neuro deficits] Psych: [Alert], [oriented], [appropriate affect] - Labs CBC & Chem 7: 02/01/18 07:44 02/01/18 07:44 Labs: Abnormal Lab Results - Last 24 Hours (Table) 01/31/18 01/31/18 02/01/18 Range/Units 17:29 19:47 06:56 RBC (4.30-5.90) m/uL Hgb (13.0-17.5) gm/dL Hct (39.0-53.0) % Chloride (98-107) mmol/L BUN (9-20) mg/dL POC Glucose (mg/dL) 146 H 215 H 101 H (75-99) mg/dL Total Protein (6.3-8.2) g/dL Albumin (3.5-5.0) g/dL 02/01/18 02/01/18 02/01/18 Range/Units 07:44 07:44 11:57 RBC 3.69 L (4.30-5.90) m/uL Hgb 11.1 L (13.0-17.5) gm/dL Hct 34.5 L (39.0-53.0) % Chloride 113 H (98-107) mmol/L BUN 24 H (9-20) mg/dL POC Glucose (mg/dL) 112 H (75-99) mg/dL Total Protein 5.9 L (6.3-8.2) g/dL Albumin 2.9 L (3.5-5.0) g/dL Microbiology - Last 24 Hours (Table) 01/29/18 16:00 Blood Culture - Preliminary Blood No Growth after 48 hours Assessment and Plan Assessment: Assessment and Plan 1. COPD exacerbation: Likely triggered by smoking, medication non compliance and viral URI/chronic bronchitis. Patient is afebrile with a mild leukocytosis of 11.1. CXR findings consistent with acute bronchitis. O2 per NC to maintain O2 sat > 92%. Continue DuoNeb QID scheduled, Symbicort 2 puff BID, SoluMedrol 60 mg IV Q6H. Continue Azithromycin 500 mg PO QD x 3 days for acute bronchitis. BCx prelim negative after 48H. Will add Mucinex 1200 mg PO BID. FU BCx (final) 2. Substance abuse: States takes Methadone 80 mg PO QD at [address] [facility]. Verified by pharmacy. Habitrol 21 mg SUBCUT QD. 3. Constipation: 3-4 weeks ago. Continue Miralax 17g PO QD. KUB shows stool burden. 4. Hep C: Will need good follow up outPT. 5. DVT/GI Prophylaxis: Heparin 5000 units BID. Resolved: Leukocytosis Patient is pending clinical improvement. 6 minute walk test tomorrow. Transition to PO steroids tomorrow. 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
[2018-02-01] MEDS: guaiFENesin 600 MG TABLET.ER PO SCH ×2 (16:54→19:30)
[2018-02-01 17:46] LABS: Glucose,Whole Blood 87 mg/dL (75-99)
[2018-02-01 20:13] LABS: Glucose,Whole Blood 140 mg/dL (75-99)
[2018-02-01] MEDS ORDERED: IPRATROPIUM-ALBUTEROL 3 ML NEB INHALATION PRN (21:25)
[2018-02-02] MEDS: methylPREDNISolone SOD SUCCI 125 MG/2 ML VIAL IV SCH ×2 (00:09→05:35)
[2018-02-02 07:03] LABS: Glucose,Whole Blood 139 mg/dL (75-99)
[2018-02-02] MEDS: SYMBICORT 160-4.5 MCG INHALER INHALATION SCH (07:25)
[2018-02-02] MEDS: IPRATROPIUM-ALBUTEROL 3 ML NEB INHALATION SCH ×3 (07:25→15:34)
[2018-02-02] MEDS: METHADONE 10 MG TAB PO SCH (07:44)
[2018-02-02] MEDS: POLYETHYLENE GLYCOL 3350 17 GM POWD.PACK PO SCH (07:44)
[2018-02-02] MEDS: HEPARIN SODIUM,PORCINE 5,000 UNIT/ML 1 ML VIAL SQ SCH (07:44)
[2018-02-02] MEDS: NICOTINE 21MG/24HR PATCH TRANSDERM SCH ×2 (07:44→07:48)
[2018-02-02] MEDS: DOCUSATE 100 MG CAP PO SCH (07:44)
[2018-02-02] MEDS: AZITHROMYCIN 500 MG TAB PO SCH (07:44)
[2018-02-02] MEDS: guaiFENesin 600 MG TABLET.ER PO SCH (07:44)
[2018-02-02] MEDS ORDERED: predniSONE 20 MG TAB PO SCH (09:00)
[2018-02-02 11:48] LABS: Glucose,Whole Blood 104 mg/dL (75-99)
[2018-02-02 12:41] VITALS: BP 129/78; RESP 14; TEMP 97.7
[2018-02-02] MEDS ORDERED: BENZONATATE 100 MG CAP PO PRN (13:50)
[2018-02-02] MEDS ORDERED: BENZONATATE 100 MG CAP PO STA (13:50)
--- NOTE | 2018-02-02 13:51 | P.PN ---
Subjective Progress Note Date: 02/02/18 Principal diagnosis: COPD exacerbation Patient was seen and examined. No acute events overnight. Patient continues to complain of cough, unable to get sputum up. Shortness of breath is improved marginally since admission. He denies any chest pain or palpitations. Patient reports that he is homeless, might be able to stay with a friend. 6 minute walk test pending. Objective - Vital Signs Vital signs: Vital Signs Temp 97.7 F 02/02/18 12:40 Pulse 75 02/02/18 12:40 Resp 14 02/02/18 12:40 BP 129/78 02/02/18 12:40 Pulse Ox 91 L 02/02/18 12:40 Intake & Output 02/01/18 02/02/18 02/02/18 18:59 06:59 18:59 Intake Total 240 240 Output Total 300 Balance -60 240 Intake: Oral 240 240 Output: Urine 300 Other: Voiding Method Toilet Toilet Urinal Urinal # Voids 2 1 # Bowel Movements 2 - Exam General: [non toxic], [no distress], [appears at stated age] Derm: [warm], [dry] Head: [atraumatic], [normocephalic], [symmetric] Eyes: [EOMI], [no lid lag], [anicteric sclera] Mouth: [no lip lesion], [mucus membranes moist] Cardiovascular: [S1S2 reg], [no murmur], [positive DPl pulse bilateral] Lungs: [Decreased breath sounds bilaterally], [no accessory muscle use] Abdominal: [Hard], [ nontender to palpation], [no guarding], [no appreciable organomegaly] Ext: [no gross muscle atrophy], [no edema], [no contractures] Neuro: [no focal neuro deficits] Psych: [Alert], [oriented], [appropriate affect] - Labs CBC & Chem 7: 02/01/18 07:44 02/01/18 07:44 Labs: Abnormal Lab Results - Last 24 Hours (Table) 02/01/18 02/02/18 02/02/18 Range/Units 20:12 07:01 11:47 POC Glucose (mg/dL) 140 H 139 H 104 H (75-99) mg/dL Microbiology - Last 24 Hours (Table) 01/29/18 16:00 Blood Culture - Preliminary Blood No Growth after 72 hours Assessment and Plan Assessment: Assessment and Plan 1. COPD exacerbation: Likely triggered by smoking, medication non compliance and viral URI/chronic bronchitis. Patient is afebrile with a mild leukocytosis of 11.1. CXR findings consistent with acute bronchitis. O2 per NC to maintain O2 sat > 92%. Continue DuoNeb QID scheduled, Symbicort 2 puff BID. SoluMedrol IV switched to Prednisone 60 mg PO QD. Finished Azithromycin 500 mg PO QD x 3 days for acute bronchitis. BCx prelim negative after 72H. Continue Mucinex 1200 mg PO BID and Add Tessalon pearls. FU BCx (final) 2. Substance abuse: States takes Methadone 80 mg PO QD at [address] [facility]. Verified by pharmacy. Habitrol 21 mg SUBCUT QD. 3. Constipation: 3-4 weeks ago. Continue Miralax 17g PO QD. KUB shows stool burden. 4. Hep C: Will need good follow up outPT. 5. DVT/GI Prophylaxis: Heparin 5000 units BID. Resolved: Leukocytosis Patient has improved. 6 minute walk test tomorrow. 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 Will need to discus with case management if he needs home O2 as he does not have a stable living arrangement at this time.
[2018-02-02 15:37] VITALS: PULSE 72
[2018-02-02 17:05] LABS: Glucose,Whole Blood 160 mg/dL (75-99)
[2018-02-02 18:58] LABS: Hemoglobin A1C 5.6 % (4.0-6.0)
== END 2018-02-02 18:00 | disposition home or self-care (01) | DRG 191 ==
LOC: EC 14:22 → 3NMEDONC 17:43
PROVIDERS: ADMIT Family Medicine; ATTEND Family Medicine
DX: J44.1 Chronic obstructive pulmonary disease with (acute) exacerbation (principal); F11.20 Opioid dependence, uncomplicated; J44.0 Chronic obstructive pulmonary disease with (acute) lower respiratory infection; J20.9 Acute bronchitis, unspecified; K59.00 Constipation, unspecified; Z59.0 Homelessness; B19.20 Unspecified viral hepatitis C without hepatic coma; F17.210 Nicotine dependence, cigarettes, uncomplicated; Z79.51 Long term (current) use of inhaled steroids; Z91.128 Patient's intentional underdosing of medication regimen for other reason; Z86.14 Personal history of Methicillin resistant Staphylococcus aureus infection; M54.9 Dorsalgia, unspecified; G89.29 Other chronic pain
CPT/HCPCS: 36415; 71046; 74018; 80053; 82550; 82553; 83036; 83735; 83880; 84484; 85025; 85027; 85610; 85730; 87040; 93005; 94640; 94644; 94760; 96365; 96366; 96375; 99285

== ENCOUNTER 2021-11-20 10:59 | Inpatient (IN) | payer MEDICARE, OTHER ==
[2021-11-20] MEDS ORDERED: IPRATROPIUM-ALBUTEROL 3 ML NEB INHALATION STA ×2 (11:14→12:47)
[2021-11-20] MEDS ORDERED: methylPREDNISolone SOD SUCCI 125 MG/2 ML VIAL IV STA (11:14)
[2021-11-20] MEDS ORDERED: ALBUTEROL NEBULIZED 2.5 MG/3 ML INHALATION STA ×2 (11:23→12:48)
[2021-11-20] MEDS ORDERED: MAGNESIUM SULFATE-D5W PMX 1 GM in DEXTROSE/WATER 1 100ML.BAG IVPB ONE (11:23)
--- NOTE | 2021-11-20 11:34 | ED ---
SOB HPI - General Chief Complaint: Shortness of Breath Stated Complaint: SOB Time Seen by Provider: 11/20/21 11:14 Source: patient Mode of arrival: ambulatory Limitations: no limitations - History of Present Illness Initial Comments: 65-year-old male past medical history of hepatitis C, COPD who presents to the emergency room with shortness of breath. Patient has long-standing history of COPD and does have oxygen at home that he states he uses only when needed which is very infrequently. Over the past week he has had more shortness of breath which took him into an urgent care 2 days ago. He was given a solumedrol injection which she states improved his shortness of breath somewhat. He was instructed on that date to go to the emergency department however patient reports he was too busy to come in. Admits to a nonproductive cough. No fevers or chills. No chest pain. No previous history of cardiac disease. Does have an albuterol inhaler that he has been using more than prescribed. Admits to mild lower extremity edema. No previous cardiac workup. No other alleviating, precipitating or modifying factors - Related Data Home Medications Medication Instructions Recorded Confirmed Albuterol Inhaler [Ventolin Hfa 2 puff INHALATION RT-Q6H PRN 11/20/21 11/20/21 Inhaler] Buprenorphine HCl/Naloxone HCl 1 film SL DAILY 11/20/21 11/20/21 [Suboxone 8 mg-2 mg Sl Film] Allergies Allergy/AdvReac Type Severity Reaction Status Date / Time No Known Allergies Allergy Verified 11/20/21 12:59 Review of Systems ROS Statement: Those systems with pertinent positive or pertinent negative responses have been documented in the HPI. ROS Other: All systems not noted in ROS Statement are negative. Past Medical History Past Medical History: COPD Additional Past Medical History / Comment(s): Hepatitis C, chronic back pain History of Any Multi-Drug Resistant Organisms: MRSA Date of last positivie culture/infection: 2017 MDRO Source:: butt Past Surgical History: Appendectomy Past Anesthesia/Blood Transfusion Reactions: No Reported Reaction Past Psychological History: No Psychological Hx Reported Smoking Status: Current every day smoker Past Alcohol Use History: None Reported Past Drug Use History: Marijuana, Prescription Drug Abuse - Past Family History Father Family Medical History: Hypertension General Exam Limitations: physical limitation General appearance: alert, in distress Head exam: Present: atraumatic, normocephalic, normal inspection Eye exam: Present: normal appearance, PERRL, EOMI. Absent: scleral icterus, conjunctival injection, periorbital swelling ENT exam: Present: normal exam, mucous membranes moist Respiratory exam: Present: respiratory distress, wheezes, accessory muscle use, decreased breath sounds, other (tachypnia, conversational dyspnea) Cardiovascular Exam: Present: normal rhythm, tachycardia GI/Abdominal exam: Present: soft, normal bowel sounds. Absent: distended, tenderness, guarding, rebound, rigid Neurological exam: Present: alert, oriented X3, CN II-XII intact Psychiatric exam: Present: anxious Course Vital Signs 11/20/21 11/20/21 11/20/21 11:01 11:27 11:31 Temperature 97.0 F L Pulse Rate 109 H 134 H Pulse Rate [ Jury Consultant ] Respiratory 32 H 36 H 36 H Rate Blood Pressure 92/46 109/66 Blood Pressure [Right Arm] O2 Sat by Pulse 93 L 93 L Oximetry Fraction of Inspired Oxygen (FIO2) 11/20/21 11/20/21 11/20/21 11:39 11:55 12:02 Temperature Pulse Rate 134 H 104 H 102 H Pulse Rate [ Jury Consultant ] Respiratory 36 H Rate Blood Pressure 105/77 Blood Pressure [Right Arm] O2 Sat by Pulse 95 Oximetry Fraction of Inspired Oxygen (FIO2) 11/20/21 11/20/21 11/20/21 12:11 12:52 13:11 Temperature Pulse Rate 104 H 137 H Pulse Rate [ Jury Consultant ] Respiratory 22 Rate Blood Pressure Blood Pressure [Right Arm] O2 Sat by Pulse Oximetry Fraction of 40 40 Inspired Oxygen (FIO2) 11/20/21 11/20/21 11/20/21 13:12 15:03 16:04 Temperature Pulse Rate 130 H 130 H 130 H Pulse Rate [ Jury Consultant ] Respiratory 20 20 Rate Blood Pressure 140/86 120/79 Blood Pressure [Right Arm] O2 Sat by Pulse 99 99 Oximetry Fraction of Inspired Oxygen (FIO2) 11/20/21 11/20/21 11/20/21 16:17 16:19 17:05 Temperature Pulse Rate 130 H 134 H 130 H Pulse Rate [ Jury Consultant ] Respiratory 24 24 Rate Blood Pressure 133/90 122/96 Blood Pressure [Right Arm] O2 Sat by Pulse 99 97 Oximetry Fraction of Inspired Oxygen (FIO2) 11/20/21 11/20/21 11/20/21 18:25 19:50 20:00 Temperature 97.8 F Pulse Rate 130 H 130 H Pulse Rate [ 131 H Jury Consultant ] Respiratory 22 20 Rate Blood Pressure 140/89 Blood Pressure 118/86 [Right Arm] O2 Sat by Pulse 96 95 99 Oximetry Fraction of Inspired Oxygen (FIO2) 11/20/21 20:09 Temperature Pulse Rate 128 H Pulse Rate [ Jury Consultant ] Respiratory 22 Rate Blood Pressure 106/76 Blood Pressure [Right Arm] O2 Sat by Pulse 99 Oximetry Fraction of Inspired Oxygen (FIO2) Medical Decision Making - Medical Decision Making Upon arrival the patient was placed into room 1. Thorough history and physical exam was performed. Patient does arrive and has significant respiratory distress. He is given a DuoNeb breathing treatment and an albuterol treatment. Patient placed on BiPAP however he does not tolerate this. Labs are conducted and reviewed. BNP elevated at 6740. Troponin 0.105. Chest x-ray demonstrates COPD and possible small effusions. Due to patient's significant work of breathing with concern for new onset CHF I did recommend admission for which the patient was agreeable. Spoke with Dr. Philippe who was agreeable to admit the patient. - Lab Data Result diagrams: 11/25/21 07:13 11/27/21 09:02 Lab Results 11/20/21 11/20/21 11/20/21 Range/Units 11:27 11:27 11:27 WBC 9.3 (3.8-10.6) k/uL RBC 3.68 L (4.30-5.90) m/uL Hgb 10.7 L (13.0-17.5) gm/dL Hct 34.6 L (39.0-53.0) % MCV 93.8 (80.0-100.0) fL MCH 29.0 (25.0-35.0) pg MCHC 30.9 L (31.0-37.0) g/dL RDW 15.1 (11.5-15.5) % Plt Count 207 (150-450) k/uL MPV 8.9 Neutrophils % 60 % Lymphocytes % 30 % Monocytes % 4 % Eosinophils % 4 % Basophils % 1 % Neutrophils # 5.6 (1.3-7.7) k/uL Lymphocytes # 2.8 (1.0-4.8) k/uL Monocytes # 0.4 (0-1.0) k/uL Eosinophils # 0.4 (0-0.7) k/uL Basophils # 0.1 (0-0.2) k/uL Hypochromasia Moderate PT 11.6 (9.0-12.0) sec INR 1.1 (<1.2) APTT 23.7 (22.0-30.0) sec Sodium 140 (137-145) mmol/L Potassium 4.8 (3.5-5.1) mmol/L Chloride 104 (98-107) mmol/L Carbon Dioxide 24 (22-30) mmol/L Anion Gap 12 mmol/L BUN 28 H (9-20) mg/dL Creatinine 0.94 (0.66-1.25) mg/dL Est GFR (CKD-EPI)AfAm >90 (>60 ml/min/1.73 sqM) Est GFR (CKD-EPI)NonAf 84 (>60 ml/min/1.73 sqM) Glucose 136 H (74-99) mg/dL Plasma Lactic Acid Gregor (0.7-2.0) mmol/L Calcium 8.6 (8.4-10.2) mg/dL Magnesium 2.0 (1.6-2.3) mg/dL Total Bilirubin 0.8 (0.2-1.3) mg/dL AST 38 (17-59) U/L ALT 31 (4-49) U/L Alkaline Phosphatase 86 (38-126) U/L Troponin I (0.000-0.034) ng/mL NT-Pro-B Natriuret Pep pg/mL Total Protein 7.1 (6.3-8.2) g/dL Albumin 4.2 (3.5-5.0) g/dL 11/20/21 11/20/21 11/20/21 Range/Units 11:27 11:27 11:33 WBC (3.8-10.6) k/uL RBC (4.30-5.90) m/uL Hgb (13.0-17.5) gm/dL Hct (39.0-53.0) % MCV (80.0-100.0) fL MCH (25.0-35.0) pg MCHC (31.0-37.0) g/dL RDW (11.5-15.5) % Plt Count (150-450) k/uL MPV Neutrophils % % Lymphocytes % % Monocytes % % Eosinophils % % Basophils % % Neutrophils # (1.3-7.7) k/uL Lymphocytes # (1.0-4.8) k/uL Monocytes # (0-1.0) k/uL Eosinophils # (0-0.7) k/uL Basophils # (0-0.2) k/uL Hypochromasia PT (9.0-12.0) sec INR (<1.2) APTT (22.0-30.0) sec Sodium (137-145) mmol/L Potassium (3.5-5.1) mmol/L Chloride (98-107) mmol/L Carbon Dioxide (22-30) mmol/L Anion Gap mmol/L BUN (9-20) mg/dL Creatinine (0.66-1.25) mg/dL Est GFR (CKD-EPI)AfAm (>60 ml/min/1.73 sqM) Est GFR (CKD-EPI)NonAf (>60 ml/min/1.73 sqM) Glucose (74-99) mg/dL Plasma Lactic Acid Gregor 1.7 (0.7-2.0) mmol/L Calcium (8.4-10.2) mg/dL Magnesium (1.6-2.3) mg/dL Total Bilirubin (0.2-1.3) mg/dL AST (17-59) U/L ALT (4-49) U/L Alkaline Phosphatase (38-126) U/L Troponin I 0.105 H* (0.000-0.034) ng/mL NT-Pro-B Natriuret Pep 6740 pg/mL Total Protein (6.3-8.2) g/dL Albumin (3.5-5.0) g/dL EKG demonstrates a sinus tachycardia with a rate of 137. [place] interval 132. QRS 126. QTC 382. There is a left bundle branch block 11/20/21 11:33 Critical Care Time Critical Care Time: Yes Critical Care Time: 35 minutes for bipap management Disposition Clinical Impression: BiPAP (biphasic positive airway pressure) dependence, Acute respiratory insufficiency, New onset of congestive heart failure, Acute exacerbation of chronic obstructive airways disease Disposition: ADMITTED IP TO THIS HOSP Condition: Stable Is patient prescribed a controlled substance at d/c from ED?: No Time of Disposition: 13:55 Decision to Admit Reason: Admit from EC Decision Date: 11/20/21 Decision Time: 13:55
[2021-11-20 11:50] LABS: Basophils # (A) 0.1 k/uL (0-0.2); Basophils % (A) 1 %; Eosinophils # (A) 0.4 k/uL (0-0.7); Eosinophils % (A) 4 %; HCT 34.6 % (39.0-53.0); HGB 10.7 gm/dL (13.0-17.5); Hypochromasia Moderate; Lymphocytes # (A) 2.8 k/uL (1.0-4.8); Lymphocytes % (A) 30 %; MCHC 30.9 g/dL (31.0-37.0); MCV 93.8 fL (80.0-100.0); Mean Platelet Volume 8.9; Monocytes # (A) 0.4 k/uL (0-1.0); Monocytes % (A) 4 %; Neutrophils # (A) 5.6 k/uL (1.3-7.7); Neutrophils % (A) 60 %; Platelet Count 207 k/uL (150-450); RBC 3.68 m/uL (4.30-5.90); RDW 15.1 % (11.5-15.5); WBC 9.3 k/uL (3.8-10.6)
[2021-11-20 11:58] LABS: ALT 31 U/L (4-49); AST 38 U/L (17-59); African American GFR (CKD) >90 (>60 ml/min/1.73 sqM); Albumin 4.2 g/dL (3.5-5.0); Alkaline Phosphatase 86 U/L (38-126); Anion Gap 12 mmol/L; Blood Urea Nitrogen 28 mg/dL (9-20); Calcium 8.6 mg/dL (8.4-10.2); Carbon Dioxide 24 mmol/L (22-30); Chloride 104 mmol/L (98-107); Glucose 136 mg/dL (74-99); Non-African American GFR(CKD) 84 (>60 ml/min/1.73 sqM); Potassium 4.8 mmol/L (3.5-5.1); Sodium 140 mmol/L (137-145); Total Bilirubin 0.8 mg/dL (0.2-1.3); Total Protein 7.1 g/dL (6.3-8.2)
[2021-11-20 12:02] LABS: INR 1.1 (<1.2); Partial Thromboplastin Time 23.7 sec (22.0-30.0); Prothrombin Time 11.6 sec (9.0-12.0)
--- NOTE | 2021-11-20 13:17 | XR ---
EXAMINATION TYPE: XR chest 1V portable DATE OF EXAM: 11/20/2021 COMPARISON: 01/29/2018 HISTORY: Shortness of breath TECHNIQUE: Single frontal view of the chest is obtained. FINDINGS: Diffuse interstitial pattern with right lower lobe infiltrate and small effusion. Cardiome zachariah. Diffuse osteopenia with arthropathy and shoulders. No pneumothorax. Hyperinflation suggests PSYCHIATRIC ORDERLY D. Elevated right hemidiaphragm. A right-sided lower rib cage deformity suggesting fracture. IMPRESSION: 1. COPD correlate for bilateral lower lobe and small effusion correlate for mild venous congestion melo perimposed on a background of chronic interstitial pulmonary fibrosis.
[2021-11-20] MEDS ORDERED: FUROSEMIDE 10 MG/ML 4 ML VIAL IV STA (13:26)
[2021-11-20] MEDS ORDERED: NALOXONE 0.4 MG/ML 1 ML VIAL IV PRN (13:56)
[2021-11-20] MEDS ORDERED: ASPIRIN 81 MG PO STA (14:05)
[2021-11-20] MEDS ORDERED: HYDROcodone/APAP 5-325MG 1 EACH TAB PO PRN (14:50)
[2021-11-20] MEDS: methylPREDNISolone SOD SUCCI 125 MG/2 ML VIAL IV SCH ×2 (15:10→21:01)
[2021-11-20] MEDS: IPRATROPIUM-ALBUTEROL 3 ML NEB INHALATION SCH ×2 (15:59→19:50)
[2021-11-20] MEDS ORDERED: IPRATROPIUM-ALBUTEROL 3 ML NEB INHALATION PRN (16:16)
--- NOTE | 2021-11-20 16:45 | P.CNPUL ---
History of Present Illness Consult date: 11/20/21 Reason for consult: dyspnea, COPD History of present illness: 65-year-old male patient, previous history of substance abuse, IVDA and the molly ent is currently on Suboxone along with known history of COPD and hepatitis C viral infection, came into the emergency department because of worsening shortness of breath. He is known to have COPD. He stated that he was having worsening shortness of breath and he was seen at the urgent care from 2 days ago and he was given treatment that improved his breathing and subsequently his condition got worse and he end up coming into the emergency department. The patient has a nonproductive cough. No chest pain. No angina. No pleurisy. No hemoptysis. No fever. No chills. No previous history of cardiac disease. No myocardial infarction. Is not using any maintenance respiratory medications. The patient has also noted some increased edema lower extremity is bilaterally. No palpitations. No altered mentation. His chest x-ray was consistent with COPD along with cardiomegaly and pulmonary vascular congestion. The patient was afebrile. He was quite short of breath and immediately was placed on a BiPAP at a pressure of 12/5 cm of water. He was given IV Lasix and he diuresed more than 2 L of urine output. The patient had blood work that showed normal electrolytes, normal renal function, white cell count 9.3 with hemoglobin 10.7 and a platelet count of 207. The patient's LFTs were essentially within normal limits. ProBNP level was 6740 and the initial troponin was at 0.105. Lactic acid level was at 1.7. EKG showed a normal sinus tachycardia without any acute ischemic changes. Coagulation profile was normal. COVID 19 testing was negative. Review of Systems Constitutional: Reports fatigue, Reports poor appetite, Reports weakness Eyes: denies as per HPI, denies blurred vision, denies bulging eye, denies decreased vision, denies diplopia, denies discharge, denies dry eye, denies irritation, denies itching, denies pain, denies photophobia, denies loss of peripheral vision, denies loss of vision, denies tunnel vision/blind spots Ears: deny: decreased hearing, ear discharge, earache, tinnitus Ears, nose, mouth and throat: Reports as per HPI Breasts: absent: as per HPI, gynecomastia Cardiovascular: Reports decreased exercise tolerance, Reports dyspnea on exertion, Reports leg edema Respiratory: Reports cough with sputum, Reports dyspnea, Reports wheezing Genitourinary: Reports as per HPI Musculoskeletal: Reports as per HPI Musculoskeletal: bilateral: ankle swelling, absent: ankle pain, ankle stiffness Integumentary: Reports as per HPI Neurological: Reports as per HPI Psychiatric: Reports as per HPI Endocrine: Reports as per HPI, Reports fatigue Hematologic/Lymphatic: Reports as per HPI Allergic/Immunologic: Reports as per HPI Past Medical History Past Medical History: COPD Additional Past Medical History / Comment(s): Hepatitis C, chronic back pain History of Any Multi-Drug Resistant Organisms: MRSA Date of last positivie culture/infection: 2016 MDRO Source:: butt Past Surgical History: Appendectomy Past Anesthesia/Blood Transfusion Reactions: No Reported Reaction Past Psychological History: No Psychological Hx Reported Smoking Status: Current every day smoker (1 PPD for 40 year) Past Alcohol Use History: None Reported Past Drug Use History: Marijuana, Prescription Drug Abuse - Past Family History Father Family Medical History: Hypertension Medications and Allergies Home Medications Medication Instructions Recorded Confirmed Type Albuterol Inhaler [Ventolin Hfa 2 puff INHALATION RT-Q6H PRN 11/20/21 11/20/21 History Inhaler] Buprenorphine HCl/Naloxone HCl 1 film SL DAILY 11/20/21 11/20/21 History [Suboxone 8 mg-2 mg Sl Film] Allergies Allergy/AdvReac Type Severity Reaction Status Date / Time No Known Allergies Allergy Verified 11/20/21 12:59 Physical Exam Vitals: Vital Signs Temp Pulse Resp BP Pulse Ox FiO2 11/20/21 16:19 134 H 11/20/21 16:17 130 H 24 133/90 99 11/20/21 16:04 130 H 11/20/21 15:03 130 H 20 120/79 99 11/20/21 13:12 130 H 20 140/86 99 11/20/21 13:11 137 H 22 40 11/20/21 12:52 104 H 11/20/21 12:11 40 11/20/21 12:02 102 H 36 H 105/77 95 11/20/21 11:55 104 H 11/20/21 11:39 134 H 11/20/21 11:31 36 H 11/20/21 11:27 134 H 36 H 109/66 93 L 11/20/21 11:01 97.0 F L 109 H 32 H 92/46 93 L Intake and Output 11/20/21 11/20/21 11/20/21 06:59 14:59 22:59 Output Total 1999 Balance -1999 Output: Urine 1999 Other: Weight 65.771 kg Gen. appearance the patient is in mild respiratory distress currently on 6 L of oxygen by nasal cannula and he also has a hoarse voice Head exam was generally normal. There was no scleral icterus or corneal arcus. Mucous membranes were moist. Neck was supple and with jugular venous distension, thyromegaly, or carotid bruits. Carotids were easily palpable bilaterally. There was no adenopathy. Lungs sounds are diminished bilaterally and the patient diffuse expiratory wheezes throughout the lung chand and prolongation of ventilation phase of breathing Heart sounds are tachycardic, distant heart sounds,Cardiac exam revealed the PMI to be normally situated and sized. The rhythm was regular and no extrasystoles were noted during several minutes of auscultation. The first and second heart sounds were normal and physiologic splitting of the second heart sound was noted. There were no murmurs, rubs, clicks, or gallops. Abdominal exam revealed normal bowel sounds. The abdomen was soft, non-tender, and without masses, organomegaly, or appreciable enlargement of the abdominal aorta. Examination of the extremities revealed easily palpable radial, femoral and pedal pulses. There was no cyanosis, clubbing or and there is +1 pitting edema lower extremity is bilaterally. Examination of the skin revealed no evidence of significant rashes, suspicious appearing nevi or other concerning lesions. Neurologically, the patient is awake and alert and the patient does not have any focal neurological deficit. Cranial nerves are essentially intact. Results - Laboratory Findings CBC and BMP: 11/20/21 11:27 11/20/21 11:27 ABG WBC 9.3 k/uL (3.8-10.6) 11/20/21 11: RBC 3.68 m/uL (4.30-5.90) L 11/20/21 11:27 Hgb 10.7 gm/dL (13.0-17.5) L 11/20/21 11:27 Hct 34.6 % (39.0-53.0) L 11/20/21 11:27 MCV 93.8 fL (80.0-100.0) 11/20/21 11:27 MCH 29.0 pg (25.0-35.0) 11/20/21 11:27 MCHC 30.9 g/dL (31.0-37.0) L 11/20/21 11:27 RDW 15.1 % (11.5-15.5) 11/20/21 11:27 Plt Count 207 k/uL (150-450) 11/20/21 11:27 MPV 8.9 11/20/21 11:27 Neutrophils % 60 % 11/20/21 11:27 Lymphocytes % 30 % 11/20/21 11:27 Monocytes % 4 % 11/20/21 11:27 Eosinophils % 4 % 11/20/21 11:27 Basophils % 1 % 11/20/21 11:27 Neutrophils # 5.6 k/uL (1.3-7.7) 11/20/21 11: Lymphocytes # 2.8 k/uL (1.0-4.8) 11/20/21 11:27 Monocytes # 0.4 k/uL (0-1.0) 11/20/21 11:27 Eosinophils # 0.4 k/uL (0-0.7) 11/20/21 11:27 Basophils # 0.1 k/uL (0-0.2) 11/20/21 11:27 Hypochromasia Moderate 11/20/21 11:27 PT 11.6 sec (9.0-12.0) 11/20/21 11:27 INR 1.1 (<1.2) 11/20/21 11:27 APTT 23.7 sec (22.0-30.0) 11/20/21 11:27 Sodium 140 mmol/L (137-145) 11/20/21 11:27 Potassium 4.8 mmol/L (3.5-5.1) 11/20/21 11:27 Chloride 104 mmol/L (98-107) 11/20/21 11:27 Carbon Dioxide 24 mmol/L (22-30) 11/20/21 11:27 Anion Gap 12 mmol/L 11/20/21 11:27 BUN 28 mg/dL (9-20) H 11/20/21 11:27 Creatinine 0.94 mg/dL (0.66-1.25) 11/20/21 11:27 Est GFR (CKD-EPI)AfAm >90 (>60 ml/min/1.73 sqM) 11/20/21 11:27 Est GFR (CKD-EPI)NonAf 84 (>60 ml/min/1.73 sqM) 11/20/21 11:27 Glucose 136 mg/dL (74-99) H 11/20/21 11:27 Plasma Lactic Acid Gregor 1.7 mmol/L (0.7-2.0) 11/20/21 11:27 Calcium 8.6 mg/dL (8.4-10.2) 11/20/21 11:27 Magnesium 2.0 mg/dL (1.6-2.3) 11/20/21 11:27 Total Bilirubin 0.8 mg/dL (0.2-1.3) 11/20/21 11:27 AST 38 U/L (17-59) 11/20/21 11:27 ALT 31 U/L (4-49) 11/20/21 11:27 Alkaline Phosphatase 86 U/L (38-126) 11/20/21 11:27 Troponin I 0.105 ng/mL (0.000-0.034) H* 11/20/21 11:27 NT-Pro-B Natriuret Pep 6740 pg/mL 11/20/21 11:33 Total Protein 7.1 g/dL (6.3-8.2) 11/20/21 11:27 Albumin 4.2 g/dL (3.5-5.0) 11/20/21 11:27 Coronavirus (PCR) Not Detected (Not Detectd) 11/20/21 Unknown PT/INR, D-dimer PT 11.6 sec (9.0-12.0) 11/20/21 11:27 INR 1.1 (<1.2) 11/20/21 11:27 Abnormal lab findings: Abnormal Labs 11/20/21 11/20/21 11/20/21 11:27 11:27 11:27 RBC 3.68 L Hgb 10.7 L Hct 34.6 L MCHC 30.9 L BUN 28 H Glucose 136 H Troponin I 0.105 H* - Diagnostic Findings Chest x-ray: image reviewed Assessment and Plan Plan: Acute exacerbation of COPD Acute exacerbation of chronic CHF with evidence of pulmonary vessel congestion, and elevation in the pro BNP level, given Lasix in the emergency department with excellent diuresis and subsequent further improvement Acute hypoxic respiratory failure, initially on a BiPAP at a pressure of 12/5 and currently the patient is on 6 L O2 nasal cannula Mild elevation of the troponins, consider acute non-ST elevation myocardial infarction Sinus tachycardia Chronic smoker Hepatitis C viral infection Remote history of IVDA Remote history of substance abuse with prescription narcotics and the patient is currently on Suboxone Chronic smoker Plan Titrate FiO2 as tolerated to maintain saturation above 90% Use BiPAP at a pressure of 12/5 cm of water as needed Continue Lasix 40 mg IV every 12 hours Continue DuoNeb nebulized treatment [id number] Continue Perforomist and Pulmicort neb last treatment twice a day Continue Solu-Medrol 60 mg every 6 hours Smoking cessation counseling Repeat chest x-ray within next 24 hours. Ideally I would like to obtain a CAT scan of the chest to evaluate also the patient's hoarseness and rule out any lung masses. I'm going to order a CAT scan of the chest probably within next 24-48 hours Echocardiogram to evaluate LV function Cardiology consultation Heparin subcu for DVT prophylaxis will continue to follow
[2021-11-20] MEDS ORDERED: RX INFO: IV CONTRAST WAS GIVEN 1 EACH MISC MISCELLANE PRN (17:03)
[2021-11-20] MEDS: FORMOTEROL FUMARATE 20 MCG/2 ML NEBU INHALATION SCH (19:50)
[2021-11-20] MEDS: BUDESONIDE 1 MG/2 ML NEBU INHALATION SCH (19:50)
[2021-11-20] MEDS ORDERED: methylPREDNISolone SOD SUCCI 40 MG/ML 1 ML VIAL IV SCH (20:00)
[2021-11-20 20:28] LABS: Glucose,Whole Blood 168 mg/dL (70-110)
[2021-11-20] MEDS: ALPRAZolam 0.25 MG TAB PO PRN (20:42)
[2021-11-20] MEDS: FUROSEMIDE 10 MG/ML 4 ML VIAL IV SCH (20:42)
[2021-11-20] MEDS: HEPARIN SODIUM,PORCINE/PF 5,000 UNIT/0.5 ML SYRINGE SQ SCH (20:43)
[2021-11-20] MEDS: DOCUSATE 100 MG CAP PO SCH (21:00)
--- NOTE | 2021-11-21 01:23 | HP ---
HISTORY AND PHYSICAL CHIEF COMPLAINT: Shortness of breath and cough. HISTORY OF PRESENT ILLNESS: This is a 65-year-old gentleman with a past medical history of COPD, hepatitis C, not presents with complaint of increased shortness of breath and cough and sputum and the patient came to [facility]. CT chest showed some CHF. COVID-19 is pending. Troponins are elevated. BNP is also elevated. The patient was admitted for further evaluation and treatment. There is no history of any fever, rigors, or chills at this time. PAST MEDICAL HISTORY: History of COPD, hepatitis C, chronic back pain. HOME MEDICATIONS: Reviewed include DuoNeb. Doses and the rest of medications reviewed. ALLERGIES: None. FAMILY HISTORY: History of hypertension. SOCIAL HISTORY: History of smoking. REVIEW OF SYSTEMS: A 14-point review of systems is negative except as mentioned earlier. PHYSICAL EXAMINATION: VITAL SIGNS: Pulse is 130, blood pressure is 140/83, respirations 21. HEENT: Conjunctivae normal. NECK: No JVD. CARDIOVASCULAR: S1, S2 muffled. RESPIRATIONS: Breath sounds diminished at the bases. A few scattered rhonchi and crackles. ABDOMEN: Soft. LEGS: No edema. NERVOUS SYSTEM: No focal deficits. SKIN: No ulcer, rash, or bleeding. LABORATORY DATA: Reviewed. Hemoglobin 10.2. Chest x-ray reviewed personally. ASSESSMENT: 1. Shortness of breath possibly congestive heart failure acute exacerbation. 2. Chronic obstructive pulmonary disease. 3. Troponin 0.105. 4. Hepatitis C. 5. Methicillin-resistant Staphylococcus aureus. RECOMMENDATIONS AND DISCUSSION: This is a 65-year-old gentleman, who presented with multiple complex medical issues. We will admit the patient. Monitor the patient closely. We will institute IV Lasix, fluid restriction, bronchodilators, steroids. Consult Pulmonary and Cardiology. Two-D echo with Doppler. Guarded prognosis because of multiple complex medical conditions. The patient eventually need to be on ROLO inhibitors and beta blockers. See orders for further details. Further recommendations to follow. Prognosis guarded. The importance of compliance also discussed with the patient. MMODL / IJN: [id number] / MTDD
[2021-11-21] MEDS ORDERED: LORazepam 2 MG/ML INJ IV STA (02:24)
[2021-11-21] MEDS: methylPREDNISolone SOD SUCCI 125 MG/2 ML VIAL IV SCH ×4 (02:49→21:11)
[2021-11-21 04:23] LABS: Basophils % (A) 0 %; Eosinophils % (A) 0 %; HCT 31.2 % (39.0-53.0); HGB 9.8 gm/dL (13.0-17.5); Hypochromasia Slight; Lymphocytes # (A) 0.7 k/uL (1.0-4.8); Lymphocytes % (A) 12 %; MCH 29.3 pg (25.0-35.0); MCHC 31.5 g/dL (31.0-37.0); MCV 92.9 fL (80.0-100.0); Mean Platelet Volume 8.6; Monocytes # (A) 0.1 k/uL (0-1.0); Monocytes % (A) 2 %; Neutrophils # (A) 5.2 k/uL (1.3-7.7); Neutrophils % (A) 86 %; Platelet Count 157 k/uL (150-450); RBC 3.36 m/uL (4.30-5.90); RDW 14.9 % (11.5-15.5)
[2021-11-21 04:28] LABS: Calcium 8.7 mg/dL (8.4-10.2); Potassium 3.9 mmol/L (3.5-5.1)
[2021-11-21] MEDS: FORMOTEROL FUMARATE 20 MCG/2 ML NEBU INHALATION SCH ×3 (07:36→20:22)
[2021-11-21] MEDS: BUDESONIDE 1 MG/2 ML NEBU INHALATION SCH ×2 (07:36→20:22)
[2021-11-21] MEDS: IPRATROPIUM-ALBUTEROL 3 ML NEB INHALATION SCH ×4 (07:37→20:22)
--- NOTE | 2021-11-21 08:20 | XR ---
EXAMINATION TYPE: XR chest 1V portable DATE OF EXAM: 11/21/2021 COMPARISON: 11/20/2021 HISTORY: Shortness of breath FINDINGS: There are bilateral pleural effusions with cardiomegaly and bibasilar infiltrate. There is a diffuse interstitial pattern. Hyperexpansion compatible is COPD. Throughout the shoulders. Hypertrophic patten ge of the spine. IMPRESSION: 1. Stable pleural parenchymal changes correlate for COPD with CHF. Underlying chronic interstitial janneth ng disease with right lower lobe infiltrate also in the differential diagnosis
[2021-11-21] MEDS ORDERED: NON FORMULARY DRUG (Buprenorphine Hcl/Naloxone Hcl [Suboxone 8 Mg-2 Mg Sl Film] 1 EACH Fil SUBLINGUAL SCH (09:00)
[2021-11-21] MEDS ORDERED: bisacodyL 5 MG TABLET.DR PO PRN (09:02)
[2021-11-21] MEDS ORDERED: bisacodyL 5 MG TABLET.DR PO STA (09:02)
--- NOTE | 2021-11-21 09:27 | P.CRDCN ---
History of Present Illness Consult date: 11/21/21 Reason for Consult (text): Atrial tachycardia History of present illness: The patient is a 65-year-old male who presented to the hospital with new onset of shortness of breath. The patient had been treated via urgent care and did not improve, therefore he presented to the emergency room. Initial EKG showed 1:1 atrial tachycardia with RVR. Troponins mildly elevated and BNP greater than 6000. Cardiology was consulted for congestive heart failure. The patient was interviewed and examined lying comfortably in bed. Dr. Nur performed left carotid massage when the patient spontaneously cardioverted to sinus rhythm. DIAGNOSTICS: EKG shows atrial tachycardia with RVR Chest x-ray shows stable pleural parenchymal changes with underlying chronic interstitial lung disease Lab data: WBC 6.0, hemoglobin 9.8, hematocrit 31.2, platelet 157, sodium 139, potassium 3.9, BUN 32, creatinine 1.07, BNP 6740, troponin 0.1, 0.09, 0.07 Vital signs: Blood pressure 107/88, pulse 104, SpO2 94% on 4 L nasal cannula, SpO2 97.8F PAST MEDICAL HISTORY: Hepatitis C, IV drug abuse, COPD, history of smoking REVIEW OF SYSTEMS: No fever or chills. Positive cough No diaphoresis. Patient denies headache, dizziness, blurred vision, double vision. Patient denies any stomach discomfort. No nausea, vomiting. No hematochezia. No hematemesis. Denies any black stools or blood in his stools. Denies dysuria or hematuria. No muscle weakness or numbness. Positive for shortness of breath. Negative for orthopnea. Mild chest heaviness. PHYSICAL EXAMINATION: This is a 65-year-old male in no apparent distress at the time of my examination. HEENT: Head is atraumatic, normocephalic. Pupils are equal, round. Sclerae anicteric. Conjunctivae are clear. Mucous membranes of the mouth are moist. Neck is supple. There is no jugular venous distention. No carotid bruit is heard. CHEST EXAMINATION: Lungs are diminished to auscultation. Expiratory wheezes noted. HEART EXAMINATION: Heart regular rate and rhythm. Notably tachycardic. S1, S2 heard. No murmurs, gallops or rub. ABDOMEN: Soft, nontender. Bowel sounds are heard. No organomegaly noted. EXTREMITIES: 2+ peripheral pulses with no evidence of peripheral edema and no calf tenderness noted. NEUROLOGIC EXAMINATION: Patient is awake, alert and oriented x3. FINAL ASSESSMENT AND PLAN: Focal atrial tachycardia, conversion to sinus rhythm with left carotid massage Elevated BNP, echocardiogram pending Elevated troponin, flat trend, repeat EKG in sinus rhythm pending Acute COPD exacerbation Anemia Current smoker PLAN: Start low-dose beta jayson Awaiting EKG and echocardiogram results Further recommendations based on clinical course I am dictating on behalf of Dr Ramin Nur's history/physical and assessment/plan. Past Medical History Past Medical History: COPD Additional Past Medical History / Comment(s): Hepatitis C, chronic back pain History of Any Multi-Drug Resistant Organisms: MRSA Date of last positivie culture/infection: 2017 MDRO Source:: butt Past Surgical History: Appendectomy Past Anesthesia/Blood Transfusion Reactions: No Reported Reaction Past Psychological History: No Psychological Hx Reported Smoking Status: Current every day smoker (1 PPD for 40 year) Past Alcohol Use History: None Reported Past Drug Use History: Marijuana, Prescription Drug Abuse - Past Family History Father Family Medical History: Hypertension Medications and Allergies Home Medications Medication Instructions Recorded Confirmed Type Albuterol Inhaler [Ventolin Hfa 2 puff INHALATION RT-Q6H PRN 11/20/21 11/20/21 History Inhaler] Buprenorphine HCl/Naloxone HCl 1 film SL DAILY 11/20/21 11/20/21 History [Suboxone 8 mg-2 mg Sl Film] Allergies Allergy/AdvReac Type Severity Reaction Status Date / Time No Known Allergies Allergy Verified 11/20/21 12:59 Physical Exam Vitals: Vital Signs Temp Pulse Pulse Resp BP BP Pulse Ox 11/21/21 08:00 97.8 F 104 H 20 107/88 94 L 11/21/21 07:57 100 11/21/21 07:46 100 11/21/21 07:37 100 11/21/21 07:18 98 11/21/21 05:30 107/52 11/21/21 04:13 11/21/21 04:00 97.9 F 93 18 88/57 99 11/21/21 00:00 131 H 18 96/76 99 11/20/21 23:18 11/20/21 20:43 11/20/21 20:34 134 H 11/20/21 20:27 131 H 11/20/21 20:09 128 H 22 106/76 99 11/20/21 20:00 97.8 F 131 H 20 118/86 99 11/20/21 19:50 130 H 95 11/20/21 18:25 130 H 22 140/89 96 11/20/21 17:05 130 H 24 122/96 97 11/20/21 16:19 134 H 11/20/21 16:17 130 H 24 133/90 99 11/20/21 16:04 130 H 11/20/21 15:03 130 H 20 120/79 99 11/20/21 13:12 130 H 20 140/86 99 11/20/21 13:11 137 H 22 11/20/21 12:52 104 H 11/20/21 12:11 11/20/21 12:02 102 H 36 H 105/77 95 11/20/21 11:55 104 H 11/20/21 11:39 134 H 11/20/21 11:31 36 H 11/20/21 11:27 134 H 36 H 109/66 93 L 11/20/21 11:01 97.0 F L 109 H 32 H 92/46 93 L FiO2 11/21/21 08:00 11/21/21 07:57 11/21/21 07:46 11/21/21 07:37 11/21/21 07:18 40 11/21/21 05:30 11/21/21 04:13 40 11/21/21 04:00 40 11/21/21 00:00 40 11/20/21 23:18 40 11/20/21 20:43 40 11/20/21 20:34 11/20/21 20:27 11/20/21 20:09 11/20/21 20:00 11/20/21 19:50 11/20/21 18:25 11/20/21 17:05 11/20/21 16:19 11/20/21 16:17 11/20/21 16:04 11/20/21 15:03 11/20/21 13:12 11/20/21 13:11 40 11/20/21 12:52 11/20/21 12:11 40 11/20/21 12:02 11/20/21 11:55 11/20/21 11:39 11/20/21 11:31 11/20/21 11:27 11/20/21 11:01 Intake and Output 11/20/21 11/21/21 11/21/21 22:59 06:59 14:59 Output Total 2900 625 Balance -2900 -625 Output: Urine 2900 625 Other: # Voids 1 2 Weight 69.4 kg Results 11/21/21 03:05 11/21/21 03:05 Cardiac Enzymes 11/20/21 11/20/21 11/20/21 Range/Units 11: 11:27 15:16 AST 38 (17-59) U/L Troponin I 0.105 H* 0.097 H* (0.000-0.034) ng/mL 11/20/21 Range/Units 17:57 AST (17-59) U/L Troponin I 0.074 H* (0.000-0.034) ng/mL Coagulation 11/20/21 Range/Units 11:27 PT 11.6 (9.0-12.0) sec APTT 23.7 (22.0-30.0) sec CBC 11/20/21 11/21/21 Range/Units 11:27 03:05 WBC 9.3 6.0 (3.8-10.6) k/uL RBC 3.68 L 3.36 L (4.30-5.90) m/uL Hgb 10.7 L 9.8 L (13.0-17.5) gm/dL Hct 34.6 L 31.2 L (39.0-53.0) % Plt Count 207 157 (150-450) k/uL Comprehensive Metabolic Panel 11/20/21 11/21/21 Range/Units 11:27 03:05 Sodium 140 139 (137-145) mmol/L Potassium 4.8 3.9 (3.5-5.1) mmol/L Chloride 104 99 (98-107) mmol/L Carbon Dioxide 24 28 (22-30) mmol/L BUN 28 H 32 H (9-20) mg/dL Creatinine 0.94 1.07 (0.66-1.25) mg/dL Glucose 136 H 140 H (74-99) mg/dL Calcium 8.6 8.7 (8.4-10.2) mg/dL AST 38 (17-59) U/L ALT 31 (4-49) U/L Alkaline Phosphatase 86 (38-126) U/L Total Protein 7.1 (6.3-8.2) g/dL Albumin 4.2 (3.5-5.0) g/dL Current Medications Generic Name Dose Route Start Last Admin Trade Name Freq PRN Reason Stop Dose Admin Hydrocodone Bitart/Acetaminophen 1 each 11/20/21 14:50 Hydrocodone/Apap 5-325mg 1 Each Tab PO Q6HR PRN Pain Albuterol/Ipratropium 3 ml 11/20/21 16:00 11/21/21 07:37 Ipratropium-Albuterol 3 Ml Neb INHALATION 3 ml RT-QID GIGI Administration Albuterol/Ipratropium 3 ml 11/20/21 16:16 Ipratropium-Albuterol 3 Ml Neb INHALATION RT-Q4H PRN Shortness Of Breath Or Wheezing Alprazolam 0.25 mg 11/20/21 14:50 11/20/21 20:42 Alprazolam 0.25 Mg Tab PO 0.25 mg TID PRN Administration Anxiety Bisacodyl 10 mg 11/21/21 09:02 Bisacodyl 5 Mg Tablet. PO DAILY PRN Constipation Budesonide 1 mg 11/20/21 20:00 11/21/21 07:36 Budesonide 1 Mg/2 Ml Nebu INHALATION 1 mg RT-BID GIGI Administration Buprenorphine/Naloxone 1 each 11/21/21 09:15 Buprenorphine-Nalox 8-2 Mg Tab 1 Each Tab.Subl SL DAILY GIGI Formoterol Fumarate 20 mcg 11/20/21 20:00 11/21/21 07:36 Formoterol Fumarate 20 Mcg/2 Ml Nebu INHALATION 20 mcg RT-BID GIGI Administration Furosemide 40 mg 11/20/21 21:00 11/20/21 20:42 Furosemide 10 Mg/Ml 4 Ml Vial IV 40 mg BID GIGI Administration Heparin Sodium (Porcine) 5,000 unit 11/20/21 21:00 11/20/21 20:43 Heparin Sodium,Porcine/Pf 5,000 Unit/0.5 Ml Syringe SQ 5,000 unit Q12HR GIGI Administration Methylprednisolone Sodium Succinate 60 mg 11/20/21 15:00 11/21/21 02:49 Methylprednisolone Sod Succi 125 Mg/2 Ml Vial IV 60 mg Q6H GIGI Administration Metoprolol Succinate 25 mg 11/21/21 09:00 Metoprolol Succinate (Er) 25 Mg Tab.Er.24h PO DAILY GIGI Miscellaneous Information 1 each 11/20/21 17:03 Rx Info: Iv Contrast Was Given 1 Each Misc MISCELLANE 11/22/21 17:04 DAILY PRN Per Protocol Naloxone HCl 0.2 mg 11/20/21 13:56 Naloxone 0.4 Mg/Ml 1 Ml Vial IV Q2M PRN Opioid Reversal Pantoprazole Sodium 40 mg 11/21/21 07:30 Pantoprazole 40 Mg Tablet PO [facility] Intake and Output 11/20/21 11/21/21 11/21/21 22:59 06:59 14:59 Output Total 2900 625 Balance -2900 -625 Output: Urine 2900 625 Other: # Voids 1 2 Weight 69.4 kg 11/21/21 03:05 11/21/21 03:05
--- NOTE | 2021-11-21 09:36 | CT ---
EXAMINATION TYPE: CT chest w con DATE OF EXAM: 11/21/2021 COMPARISON: None HISTORY: COPD CT DLP: 308.2 mGycm, Automated exposure control for dose reduction was used. CONTRAST: Performed injected with 100 mL of Isovue 300. TECHNIQUE: Axial images were obtained at 5 mm thick sections. Reconstructed images are reviewed on [employer] computer in the coronal plane. FINDINGS: Portion of the thyroid visualized is normal. There is a small to moderate right pleural effusion. Minimal left pleural effusion is present. Compre ssive atelectasis adjacent to the pleural effusions within the dependent lung bases. No enlarged mediastinal or hilar adenopathy is evident. The ascending aorta diameter at the level o f the main pulmonary artery is 3.5 cm. The main pulmonary artery diameter at the bifurcation is 3.[address] sections are obtained through the upper abdomen. Scattered hypodensities within the liver may be related to hepatic cysts. IMPRESSIONS: 1. Small to moderate right pleural effusion and minimal left pleural effusion. 2. Compressive atelectasis adjacent to the pleural effusions.
[2021-11-21] MEDS: PANTOPRAZOLE 40 MG TABLET PO SCH (09:39)
[2021-11-21] MEDS: METOPROLOL SUCCINATE (ER) 25 MG TAB.ER.24H PO SCH (09:39)
[2021-11-21] MEDS: FUROSEMIDE 10 MG/ML 4 ML VIAL IV SCH ×2 (09:40→21:10)
[2021-11-21] MEDS: BUPRENORPHINE-NALOX 8-2 MG TAB 1 EACH TAB.SUBL SL SCH (09:40)
[2021-11-21] MEDS: HEPARIN SODIUM,PORCINE/PF 5,000 UNIT/0.5 ML SYRINGE SQ SCH ×2 (09:40→21:11)
--- NOTE | 2021-11-21 11:31 | P.PN ---
Subjective Progress Note Date: 11/21/21 65-year-old male patient, previous history of substance abuse, IVDA and the patient is currently on Suboxone along with known history of COPD and hepatitis C viral infection, came into the emergency department because of worsening shortness of breath. He is known to have COPD. He stated that he was having worsening shortness of breath and he was seen at the urgent care from 2 days ago and he was given treatment that improved his breathing and subsequently his condition got worse and he end up coming into the emergency department. The patient has a nonproductive cough. No chest pain. No angina. No pleurisy. No hemoptysis. No fever. No chills. No previous history of cardiac disease. No myocardial infarction. Is not using any maintenance respiratory medications. The patient has also noted some increased edema lower extremity is bilaterally. No palpitations. No altered mentation. His chest x-ray was consistent with COPD along with cardiomegaly and pulmonary vascular congestion. The patient was afebrile. He was quite short of breath and immediately was placed on a BiPAP at a pressure of 12/5 cm of water. He was given IV Lasix and he diuresed more than 2 L of urine output. The patient had blood work that showed normal electrolytes, normal renal function, white cell count 9.3 with hemoglobin 10.7 and a platelet count of 207. The patient's LFTs were essentially within normal limits. ProBNP level was 6740 and the initial troponin was at 0.105. Lactic acid level was at 1.7. EKG showed a normal sinus tachycardia without any acute ischemic changes. Coagulation profile was normal. COVID 19 testing was negative. 11/21 2021, the patient is currently in the intensive care unit and the patient is being seen for a follow-up. The patient is less short of breath compared to yesterday. He is still bronchospastic and wheezy although less compared to yesterday. He continues to have a hoarse voice. CAT scan of the chest was completed today and it showed small to moderate-sized right-sided pleural effusion. Minimal left-sided pleural effusion. There was also compressive atelectasis adjacent to the pleural effusion within the dependent lungs. Nonenlarged mediastinal lymph nodes and AND no pulmonary lesions. The patient did have hepatic cysts. The patient is being treated with a combination of DuoNeb nebulized treatments around the clock and the patient is also on IV Solu- Medrol 60 mg every 6 hours. The patient is also being diuresis with Lasix 40 mg IV every 12 hours. Is producing adequate urine output and the patient's fluid balance is -3.5 L over the past 24 hours. The white cell count is at 6.8 and platelet count of 157. BUN is a 32 with a creatinine of 1.07. Serum bicarbonate 28. Troponins are 0.09 and 0.07 respectively 2. COVID 19 testing is negative. Objective - Vital Signs Vital signs: Vital Signs Temp 97.8 F 11/21/21 08:00 Pulse 100 11/21/21 11:05 Resp 20 11/21/21 08:00 BP 107/88 11/21/21 08:00 Pulse Ox 94 L 11/21/21 08:00 FiO2 40 11/21/21 07:18 Intake & Output 11/20/21 11/21/21 11/21/21 18:59 06:59 18:59 Output Total 1999 1525 500 Balance -1999 -5 500 Weight 65.771 kg 69.4 kg Output: Urine 1999 1525 500 Other: # Voids 2 - Exam Gen. appearance the patient is in mild respiratory distress currently on 6 L of oxygen by nasal cannula and he also has a hoarse voice Head exam was generally normal. There was no scleral icterus or corneal arcus. Mucous membranes were moist. Neck was supple and with jugular venous distension, thyromegaly, or carotid bru its. Carotids were easily palpable bilaterally. There was no adenopathy. Lungs sounds are diminished bilaterally and the patient diffuse expiratory wheezes throughout the lung chand and prolongation of ventilation phase of breathing Heart sounds are tachycardic, distant heart sounds,Cardiac exam revealed the PMI to be normally situated and sized. The rhythm was regular and no extrasystoles were noted during several minutes of auscultation. The first and second heart sounds were normal and physiologic splitting of the second heart sound was noted. There were no murmurs, rubs, clicks, or gallops. Abdominal exam revealed normal bowel sounds. The abdomen was soft, non-tender, and without masses, organomegaly, or appreciable enlargement of the abdominal aorta. Examination of the extremities revealed easily palpable radial, femoral and pedal pulses. There was no cyanosis, clubbing or and there is +1 pitting edema lower extremity is bilaterally. Examination of the skin revealed no evidence of significant rashes, suspicious appearing nevi or other concerning lesions. Neurologically, the patient is awake and alert and the patient does not have any focal neurological deficit. Cranial nerves are essentially intact. - Labs CBC & Chem 7: 11/21/21 03:05 11/21/21 03:05 Labs: Abnormal Lab Results - Last 24 Hours (Table) 11/20/21 11/20/21 11/20/21 Range/Units 11:27 11:27 11:27 RBC 3.68 L (4.30-5.90) m/uL Hgb 10.7 L (13.0-17.5) gm/dL Hct 34.6 L (39.0-53.0) % MCHC 30.9 L (31.0-37.0) g/dL Lymphocytes # (1.0-4.8) k/uL BUN 28 H (9-20) mg/dL Glucose 136 H (74-99) mg/dL POC Glucose (mg/dL) (70-110) mg/dL Troponin I 0.105 H* (0.000-0.034) ng/mL 11/20/21 11/20/21 11/20/21 Range/Units 15:16 17:57 20:26 RBC (4.30-5.90) m/uL Hgb (13.0-17.5) gm/dL Hct (39.0-53.0) % MCHC (31.0-37.0) g/dL Lymphocytes # (1.0-4.8) k/uL BUN (9-20) mg/dL Glucose (74-99) mg/dL POC Glucose (mg/dL) 168 H (70-110) mg/dL Troponin I 0.097 H* 0.074 H* (0.000-0.034) ng/mL 11/21/21 11/21/21 Range/Units 03:05 03:05 RBC 3.36 L (4.30-5.90) m/uL Hgb 9.8 L (13.0-17.5) gm/dL Hct 31.2 L (39.0-53.0) % MCHC (31.0-37.0) g/dL Lymphocytes # 0.7 L (1.0-4.8) k/uL BUN 32 H (9-20) mg/dL Glucose 140 H (74-99) mg/dL POC Glucose (mg/dL) (70-110) mg/dL Troponin I (0.000-0.034) ng/mL Assessment and Plan Plan: Acute exacerbation of COPD, improving and the patient has no evidence of pneumonia or lung masses , improving on a combination of bronchodilators and steroids Acute exacerbation of chronic CHF with evidence of pulmonary vessel congestion, and elevation in the pro BNP level, given Lasix in the emergency department with excellent diuresis and subsequent further improvement, and the patient remains negative fluid balance, awaiting an echocardiogram Acute hypoxic respiratory failure, initially on a BiPAP at a pressure of 12/5 and currently the patient is off BiPAP and the patient is currently on 4 L of nasal cannula Mild elevation of the troponins, consider acute non-ST elevation myocardial infa rction Sinus tachycardia, improving Chronic smoker Hepatitis C viral infection Remote history of IVDA Remote history of substance abuse with prescription narcotics and the patient is currently on Suboxone Chronic smoker hoarseness with a negative CAT scan of the chest History of shingles Plan Titrate FiO2 as tolerated to maintain saturation above 90%, currently on 4 L Use BiPAP at a pressure of 12/5 cm of water as needed Continue Lasix 40 mg IV every 12 hours Continue DuoNeb nebulized treatment [id number] Continue Perforomist and Pulmicort neb last treatment twice a day Continue Solu-Medrol 60 mg every 6 hours for another 24 hours Smoking cessation counseling CAT scan of the chest showed no evidence of any lung masses or mediastinal lymphadenopathy. The CAT scan shows small to moderate-sized right-sided pleural effusion Echocardiogram to evaluate LV function Cardiology consultation is appreciated Heparin subcu for DVT prophylaxis will continue to follow
--- NOTE | 2021-11-21 12:51 | CA ---
Transthoracic Echo Report Name: Richie Walker Age: 65 Gender: M : 1955 Exam Date: 11/21/2021 08:20 Exam Location: [facility] Ht (in): 67 Wt (lb): 153 Ordering Physician: Jaden Philippe MD Attending/Referring Phys: Doughnut Glazier Estefanía Montoya RDCS Procedure CPT: Indications: chf Cardiac Hx: Technical Quality: Fair Contrast 1: Total Dose (mL): Contrast 2: Total Dose (mL): MEASUREMENTS (Male / Female) Normal Values 2D ECHO LV Diastolic Diameter PLAX 6.0 cm 4.2 - 5.9 / 3.9 - 5.3 cm LV Systolic Diameter PLAX 5.5 cm IVS Diastolic Thickness 0.9 cm 0.6 - 1.0 / 0.6 - 0.9 cm LVPW Diastolic Thickness 1.2 cm 0.6 - 1.0 / 0.6 - 0.9 cm LV Relative Wall Thickness 0.4 RV Internal Dim ED PLAX 3.9 cm LA Volume 136.4 cm??? 18 - 58 / 22 - 52 cm??? M-MODE Aortic Root Diameter MM 3.5 cm LA Systolic Diameter MM 4.9 cm LA Ao Ratio MM 1.4 AV Cusp Separation MM 2.0 cm DOPPLER AV Peak Velocity 162.0 cm/s AV Peak Gradient 10.5 mmHg AI Peak Velocity 326.3 cm/s AI Peak Gradient 42.6 mmHg AI Pressure Half Time 293.0 ms LVOT Peak Velocity 95.4 cm/s LVOT Peak Gradient 3.6 mmHg MV Area PHT 4.6 cm??? Mitral E Point Velocity 120.2 cm/s Mitral A Point Velocity 83.9 cm/s Mitral E to A Ratio 1.4 MV Deceleration Time 165.8 ms TR Peak Velocity 289.3 cm/s TR Peak Gradient 33.5 mmHg Right Ventricular Systolic Press 37.1 mmHg FINDINGS Left Ventricle Left ventricular wall thickness normal. Moderately reduced global left ventricular systolic function. Left ventricular ejection fraction is estimated at 20-25 %. Right Ventricle Mild right ventricular dilatation. Mild pulmonary hypertension. Right Atrium Mild right atrial dilatation. Left Atrium Severely increased left atrial volume. Moderately increased left atrial area. Mitral Valve Structurally normal mitral valve. Mitral valve thickened. Severe mitral regurgitation. Mild mitral annular calcification. Aortic Valve Trace aortic regurgitation. Aortic valve sclerosis. Thickened aortic valve without stenosis. Tricuspid Valve Structurally normal tricuspid valve. Mild tricuspid regurgitation. Pulmonic Valve Structurally normal pulmonic valve. No pulmonic stenosis. Pericardium No pericardial effusion. Aorta Normal size aortic root and proximal ascending aorta. CONCLUSIONS Left ventricular ejection fraction 20-25% Severe secondary mitral regurgitation Trace aortic regurgitation Mild right ventricular dilation RVSP 37 Previewed by: Dr. Silvestre Hutchinson DO (Electronically Signed) Final Date: 21 November 2021 12:50
[2021-11-21] MEDS: ACETAMINOPHEN TAB 325 MG TAB PO PRN (19:07)
[2021-11-21] MEDS ORDERED: ADENOSINE 3 MG/ML 2 ML VIAL IVP STA ×2 (21:43→22:27)
[2021-11-21] MEDS ORDERED: ADENOSINE 3 MG/ML 2 ML VIAL IVP ONE (22:28)
[2021-11-21] MEDS ORDERED: DILTIAZEM DRIP BOLUS FROM BAG 1 MG SOLN IV ONE (22:57)
[2021-11-21] MEDS ORDERED: DILTIAZEM 125 MG in SODIUM CHLORIDE 0.9% 100 ML IV SCH (23:20)
[2021-11-21 23:43] LABS: Glucose,Whole Blood 177 mg/dL (70-110)
[2021-11-22] MEDS: INSULIN ASPART (NovoLOG) 100 UNIT/ML VIAL SQ SCH ×5 (00:10→21:37)
[2021-11-22] MEDS: methylPREDNISolone SOD SUCCI 125 MG/2 ML VIAL IV SCH ×4 (03:17→20:56)
--- NOTE | 2021-11-22 04:45 | PN ---
PROGRESS NOTE SUBJECTIVE: This is a 65-year-old gentleman, who was admitted with shortness of breath and possibly congestive heart failure acute exacerbation, is being closely monitored at this time. The patient also had chest CT. The patient is being monitored in ICU. The patient also had COPD. Also, the patient had received BiPAP. A chest CT was reviewed personally by me showed atelectasis. PAST MEDICAL HISTORY: Reviewed. REVIEW OF SYSTEMS: A 14-point review of systems is negative except as mentioned earlier. CURRENT MEDICATIONS: Again reviewed, which include Pulmicort, doses and rest of medication noted. PHYSICAL EXAMINATION: VITAL SIGNS: Pulse is 98, blood pressure 101/73, respirations 20. HEENT: Conjunctivae normal. NECK: No JVD. CARDIOVASCULAR: S1, S2 normal. RESPIRATIONS: Breath sounds diminished at the bases. A few scattered rhonchi. ABDOMEN: Soft, nontender. LEGS: No edema. NERVOUS SYSTEM: No focal deficits. LABS: COVID-19 is negative. Troponins are noted. ASSESSMENT: 1. Shortness of breath, possibly congestive heart failure acute exacerbation. 2. Chronic obstructive pulmonary disease acute exacerbation. 3. Troponin 0.105. 4. Hepatitis C. 5. History of methicillin-resistant Staphylococcus aureus. RECOMMENDATIONS AND DISCUSSION: I recommend to continue current management and symptomatic treatment. Continue with bronchodilators. Continue with intensive bronchodilators, steroids. Continue with diuretics. Closely follow with Cardiology, Pulmonology. Guarded prognosis. Further recommendations to follow. MMODL / IJN: [id number] /
[2021-11-22 05:47] LABS: Glucose,Whole Blood 181 mg/dL (70-110)
[2021-11-22 06:18] LABS: HCT 34.9 % (39.0-53.0); HGB 10.6 gm/dL (13.0-17.5); Hypochromasia Marked; MCH 28.9 pg (25.0-35.0); MCHC 30.5 g/dL (31.0-37.0); MCV 94.8 fL (80.0-100.0); Mean Platelet Volume 8.6; Platelet Count 220 k/uL (150-450); RBC 3.68 m/uL (4.30-5.90); RDW 14.7 % (11.5-15.5); WBC 16.6 k/uL (3.8-10.6)
[2021-11-22 06:31] LABS: Calcium 8.5 mg/dL (8.4-10.2); Potassium 4.3 mmol/L (3.5-5.1)
[2021-11-22] MEDS: PANTOPRAZOLE 40 MG TABLET PO SCH (06:53)
[2021-11-22] MEDS: DOCUSATE 100 MG CAP PO SCH (07:29)
[2021-11-22] MEDS: IPRATROPIUM-ALBUTEROL 3 ML NEB INHALATION SCH ×4 (08:03→19:28)
[2021-11-22] MEDS: FORMOTEROL FUMARATE 20 MCG/2 ML NEBU INHALATION SCH ×2 (08:03→19:29)
[2021-11-22] MEDS: BUDESONIDE 1 MG/2 ML NEBU INHALATION SCH ×2 (08:03→19:29)
[2021-11-22] MEDS: FUROSEMIDE 10 MG/ML 4 ML VIAL IV SCH (08:44)
[2021-11-22] MEDS: METOPROLOL SUCCINATE (ER) 25 MG TAB.ER.24H PO SCH ×2 (08:45→21:36)
[2021-11-22] MEDS: HEPARIN SODIUM,PORCINE/PF 5,000 UNIT/0.5 ML SYRINGE SQ SCH ×2 (08:46→20:56)
[2021-11-22] MEDS ORDERED: LACTULOSE 20 GM/30 ML CUP PO SCH (09:15)
[2021-11-22] MEDS: BUPRENORPHINE-NALOX 8-2 MG TAB 1 EACH TAB.SUBL SL SCH (09:17)
[2021-11-22] MEDS: LACTULOSE 20 GM/30 ML CUP PO SCH ×3 (09:27→21:01)
--- NOTE | 2021-11-22 10:00 | XR ---
EXAMINATION TYPE: XR chest 1V portable DATE OF EXAM: 11/22/2021 9:50 AM COMPARISON: Chest radiographs from 11/21/2021, CT chest 11/21/2021 TECHNIQUE: XR chest 1V portable Frontal view of the chest. CLINICAL INDICATION:Male, 65 years old with history of CHF; FINDINGS: Lungs/Pleura: No pneumothorax or focal consolidation. Blunting of the right costophrenic angle which is decreased from prior examination. Pulmonary vascularity: Unremarkable. Heart/mediastinum: Cardiomediastinal silhouette is enlarged and stable. Musculoskeletal: Multiple level degenerative disc disease changes seen throughout the spine. Remote r ight-sided rib fractures. IMPRESSION: 1. Decreased small right pleural effusion. 2. Cardiomegaly.
--- NOTE | 2021-11-22 12:02 | P.PN ---
Subjective Progress Note Date: 11/22/21 65-year-old male patient, previous history of substance abuse, IVDA and the patient is currently on Suboxone along with known history of COPD and hepatitis C viral infection, came into the emergency department because of worsening shortness of breath. He is known to have COPD. He stated that he was having worsening shortness of breath and he was seen at the urgent care from 2 days ago and he was given treatment that improved his breathing and subsequently his condition got worse and he end up coming into the emergency department. The patient has a nonproductive cough. No chest pain. No angina. No pleurisy. No hemoptysis. No fever. No chills. No previous history of cardiac disease. No myocardial infarction. Is not using any maintenance respiratory medications. The patient has also noted some increased edema lower extremity is bilaterally. No palpitations. No altered mentation. His chest x-ray was consistent with COPD along with cardiomegaly and pulmonary vascular congestion. The patient was afebrile. He was quite short of breath and immediately was placed on a BiPAP at a pressure of 12/5 cm of water. He was given IV Lasix and he diuresed more than 2 L of urine output. The patient had blood work that showed normal electrolytes, normal renal function, white cell count 9.3 with hemoglobin 10.7 and a platelet count of 207. The patient's LFTs were essentially within normal limits. ProBNP level was 6740 and the initial troponin was at 0.105. Lactic acid level was at 1.7. EKG showed a normal sinus tachycardia without any acute ischemic changes. Coagulation profile was normal. COVID 19 testing was negative. 11/21 2021, the patient is currently in the intensive care unit and the patient is being seen for a follow-up. The patient is less short of breath compared to yesterday. He is still bronchospastic and wheezy although less compared to yesterday. He continues to have a hoarse voice. CAT scan of the chest was completed today and it showed small to moderate-sized right-sided pleural effusion. Minimal left-sided pleural effusion. There was also compressive atelectasis adjacent to the pleural effusion within the dependent lungs. Nonenlarged mediastinal lymph nodes and AND no pulmonary lesions. The patient did have hepatic cysts. The patient is being treated with a combination of DuoNeb nebulized treatments around the clock and the patient is also on IV Solu- Medrol 60 mg every 6 hours. The patient is also being diuresis with Lasix 40 mg IV every 12 hours. Is producing adequate urine output and the patient's fluid balance is -3.5 L over the past 24 hours. The white cell count is at 6.8 and platelet count of 157. BUN is a 32 with a creatinine of 1.07. Serum bicarbonate 28. Troponins are 0.09 and 0.07 respectively 2. COVID 19 testing is negative. 11/22/2021, the patient is being seen for a follow-up. He is known to have COPD and advanced cardiomyopathy and the echocardiogram showed an ejection fraction of 20-25% along with severe mitral regurgitation, pulmonary artery pressure of 37. He also underwent a CAT scan of the chest that showed COPD and a small to moderate-sized right-sided pleural effusion. The patient continues to diurese IV Lasix. Overall fluid balance is -2.4 L over the past 24 hours. He is currently down to 2 L of oxygen by nasal cannula. Doing well. Less short of breath. Able to speak longer sentences. Remains on DuoNeb nebulized treatment [id number]. Remains on IV Solu-Medrol. Still congested. No angina. No palpitations. He is on IV Lasix will be switched to oral Lasix. Overnight, he had some difficulties with tachycardia and he was given and subsequently taken off Cardizem drip and this was done by cardiology. He was started on metoprolol XL 25 mg by mouth twice a day for rate control. Objective - Vital Signs Vital signs: Vital Signs Temp 97.6 F 11/22/21 08:00 Pulse 89 11/22/21 11:41 Resp 22 11/22/21 08:00 BP 113/86 11/22/21 08:00 Pulse Ox 98 11/22/21 08:00 FiO2 40 11/21/21 07:18 Intake & Output 11/21/21 11/22/21 11/22/21 18:59 06:59 18:59 Intake Total 30.417 Output Total 1575 500 300 Balance -1575 -469.583 -300 Weight 69 kg Intake: Intake, IV Titration 30.417 Amount Diltiazem 125 mg In 30.417 Sodium Chloride 0.9% 100 ml @ Per Protocol IV .Q0M [facility] Rx#:[id number] Output: Urine 1575 500 300 Other: # Voids 4 - Exam Gen. appearance the patient is in mild respiratory distress currently on 2 L of oxygen by nasal cannula and he also has a hoarse voice Head exam was generally normal. There was no scleral icterus or corneal arcus. Mucous membranes were moist. Neck was supple and with jugular venous distension, thyromegaly, or carotid bruits. Carotids were easily palpable bilaterally. There was no adenopathy. Lungs sounds are diminished bilaterally and the patient diffuse expiratory wheezes throughout the lung chand and prolongation of ventilation phase of breathing Heart sounds are tachycardic, distant heart sounds,Cardiac exam revealed the PMI to be normally situated and sized. The rhythm was regular and no extrasystoles were noted during several minutes of auscultation. The first and second heart sounds were normal and physiologic splitting of the second heart sound was noted. There were no murmurs, rubs, clicks, or gallops. Abdominal exam revealed normal bowel sounds. The abdomen was soft, non-tender, and without masses, organomegaly, or appreciable enlargement of the abdominal aorta. Examination of the extremities revealed easily palpable radial, femoral and pedal pulses. There was no cyanosis, clubbing or and there is +1 pitting edema lower extremity is bilaterally. Examination of the skin revealed no evidence of significant rashes, suspicious appearing nevi or other concerning lesions. Neurologically, the patient is awake and alert and the patient does not have any focal neurological deficit. Cranial nerves are essentially intact. - Labs CBC & Chem 7: 11/22/21 05:41 11/22/21 05:41 Labs: Abnormal Lab Results - Last 24 Hours (Table) 11/21/21 11/22/21 11/22/21 Range/Units 23:41 05:41 05:41 WBC 16.6 H (3.8-10.6) k/uL RBC 3.68 L (4.30-5.90) m/uL Hgb 10.6 L (13.0-17.5) gm/dL Hct 34.9 L (39.0-53.0) % MCHC 30.5 L (31.0-37.0) g/dL Chloride 97 L (98-107) mmol/L BUN 53 H (9-20) mg/dL Glucose 158 H (74-99) mg/dL POC Glucose (mg/dL) 177 H (70-110) mg/dL 11/22/21 Range/Units 05:45 WBC (3.8-10.6) k/uL RBC (4.30-5.90) m/uL Hgb (13.0-17.5) gm/dL Hct (39.0-53.0) % MCHC (31.0-37.0) g/dL Chloride (98-107) mmol/L BUN (9-20) mg/dL Glucose (74-99) mg/dL POC Glucose (mg/dL) 181 H (70-110) mg/dL Assessment and Plan Plan: Acute exacerbation of COPD, improving and the patient has no evidence of pneumonia or lung masses , improving on a combination of bronchodilators and st eroids, clinically improving, remains on endocarditis and systemic steroids Acute exacerbation of chronic CHF with evidence of pulmonary vessel congestion, and elevation in the pro BNP level, given Lasix in the emergency department with excellent diuresis and subsequent further improvement, and the patient remains negative fluid balance, and echocardiac and showed systolic heart failure with an ejection fraction of 20-25% Severe mitral regurgitation Mild pulmonary hypertension Chronic systolic heart failure with an ejection fraction of 20-25% Acute hypoxic respiratory failure, initially on a BiPAP at a pressure of 12/5 and currently the patient is off BiPAP and the patient is currently on 2 L of nasal cannula Mild elevation of the troponins, consider acute non-ST elevation myocardial infarction Sinus tachycardia, improving Chronic smoker Hepatitis C viral infection Remote history of IVDA Remote history of substance abuse with prescription narcotics and the patient is currently on Suboxone Chronic smoker hoarseness with a negative CAT scan of the chest History of shingles Plan Titrate FiO2 as tolerated to maintain saturation above 90%, currently on 2 L Continue Lasix 40 mg by mouth daily Continue DuoNeb nebulized treatment [id number] Continue Perforomist and Pulmicort neb last treatment twice a day Continue Solu-Medrol 60 mg every 6 hours for another 24 hours, this will be given for another 24 hours Smoking cessation counseling CAT scan of the chest showed no evidence of any lung masses or mediastinal lymphadenopathy. The CAT scan shows small to moderate-sized right-sided pleural effusion Echocardiogram was noted Cardiology consultation is appreciated Heparin subcu for DVT prophylaxis will continue to follow
[2021-11-22 12:03] LABS: Glucose,Whole Blood 162 mg/dL (70-110)
--- NOTE | 2021-11-22 14:08 | P.PN ---
Subjective Progress Note Date: 11/22/21 The patient is a 65-year-old male with past medical history of hepatitis C, COPD, and current smoker, who is currently admitted to the hospital with congestive heart failure and acute COPD exacerbation. Initial EKG showed 1:1 atrial tachycardia with RVR. Troponins mildly elevated and BNP greater than 6000. Cardiology was consulted for congestive heart failure. Echocardiogram revealed severely reduced LV function at 20-25%. Global hypokinesis. Overnight the patient had sustained A. tach with RVR. He was subsequently put on Cardizem drip, however he developed hypotension. This was discontinued at 7:00 this morning. He continues to have brief runs of PAT with RVR. The patient was interviewed and examined lying in bed. He states he is slightly nauseous and overall feels unwell. No chest pain or chest pressure. No shortness of breath. And he does not feel any palpitations. He was up to the chair and did not develop any dizziness. GENERAL: Ill-appearing, malnourished and in no acute distress. NECK: Supple without JVD or thyromegaly. LUNGS: Breath sounds diminished to auscultation bilaterally. Respiration equal and unlabored. No wheezes, rales or rhonchi. HEART: Regular rate and rhythm without murmurs, rubs or gallops. S1 and S2 heard. EXTREMITIES: Normal range of motion, no edema. No clubbing or cyanosis. Peripheral pulses intact and strong. VITALS: Blood pressure 113/86, pulse 88, SpO2 90% on 4 L nasal cannula, respiratory rate 18, temp 98.4F TELEMETRY: Sinus mechanism with first-degree AV block. Brief runs of atrial tachycardia with RVR. Patient became hypotensive overnight with Cardizem drip. LABS: WBC 16.6, hemoglobin 10.6, hematocrit 34.9, platelet 220, sodium 139, potassium 4.3, BUN 53, creatinine 1.19 IMPRESSION: Focal atrial tachycardia, conversion to sinus rhythm with left carotid massage Cardiomyopathy, global dysfunction, unknown type Elevated troponin, flat trend Acute CHF exacerbation Acute COPD exacerbation Anemia Current smoker PLAN: Increase beta jayson to 50mg daily Vagal maneuvers for long episodes of atrial tachycardia Futher recommendations to be based on clinical course I am dictating on behalf of Dr Ramin Nur's history/physical and assessment/plan. Objective - Vital Signs Vital signs: Vital Signs Temp 98.4 F 11/22/21 03:57 Pulse 71 11/22/21 08:29 Resp 18 11/22/21 03:57 BP 113/86 11/22/21 03:57 Pulse Ox 98 11/22/21 03:57 FiO2 40 11/21/21 07:18 Intake & Output 11/21/21 11/22/21 11/22/21 18:59 06:59 18:59 Intake Total 30.417 Output Total 1575 500 300 Balance -1575 -469.583 -300 Weight 69 kg Intake: Intake, IV Titration 30.417 Amount Diltiazem 125 mg In 30.417 Sodium Chloride 0.9% 100 ml @ Per Protocol IV .Q0M GIGI Rx#:[id number] Output: Urine 1575 500 300 Other: # Voids 4 - Labs CBC & Chem 7: 11/22/21 05:41 11/22/21 05:41 Labs: Abnormal Lab Results - Last 24 Hours (Table) 11/21/21 11/22/21 11/22/21 Range/Units 23:41 05:41 05:41 WBC 16.6 H (3.8-10.6) k/uL RBC 3.68 L (4.30-5.90) m/uL Hgb 10.6 L (13.0-17.5) gm/dL Hct 34.9 L (39.0-53.0) % MCHC 30.5 L (31.0-37.0) g/dL Chloride 97 L (98-107) mmol/L BUN 53 H (9-20) mg/dL Glucose 158 H (74-99) mg/dL POC Glucose (mg/dL) 177 H (70-110) mg/dL 11/22/21 Range/Units 05:45 WBC (3.8-10.6) k/uL RBC (4.30-5.90) m/uL Hgb (13.0-17.5) gm/dL Hct (39.0-53.0) % MCHC (31.0-37.0) g/dL Chloride (98-107) mmol/L BUN (9-20) mg/dL Glucose (74-99) mg/dL POC Glucose (mg/dL) 181 H (70-110) mg/dL
[2021-11-22] MEDS ORDERED: FUROSEMIDE 40 MG TAB PO SCH (16:00)
[2021-11-22 17:23] LABS: Glucose,Whole Blood 170 mg/dL (70-110)
[2021-11-22] MEDS: ACETAMINOPHEN TAB 325 MG TAB PO PRN (17:43)
[2021-11-22 21:10] LABS: Glucose,Whole Blood 159 mg/dL (70-110)
[2021-11-23] MEDS: methylPREDNISolone SOD SUCCI 125 MG/2 ML VIAL IV SCH ×2 (03:26→10:07)
[2021-11-23 04:25] LABS: Glucose,Whole Blood 157 mg/dL (70-110)
--- NOTE | 2021-11-23 06:00 | PN ---
PROGRESS NOTE SUBJECTIVE: This is a 65-year-old gentleman, who was admitted with shortness of breath, CHF, and COPD. The patient was closely monitored. The patient also had atrial fibrillation and fast ventricular rate, started on Cardizem. A chest x-ray was done today. The patient monitored closely in the ICU. Multiple consultants are following the patient closely. Chest x-ray was reviewed personally by me showed pleural effusion and cardiomegaly. PAST MEDICAL HISTORY: Reviewed. REVIEW OF SYSTEMS: A 14-point review of systems is negative except as mentioned earlier. CURRENT MEDICATIONS: Reviewed and include DuoNeb. Doses and rest of the medications noted. PHYSICAL EXAMINATION: VITAL SIGNS: Pulse is 85, blood pressure 90/73, respirations 20. HEENT: Conjunctivae normal. NECK: No JVD. CARDIOVASCULAR: S1, S2 muffled. RESPIRATION: Breath sounds diminished at the bases. A few scattered rhonchi and crackles. ABDOMEN: Soft. LEGS: No edema. NERVOUS SYSTEM: No focal deficits. LABORATORY DATA: Reviewed. WBC 16.6. ASSESSMENT: 1. Shortness of breath, possibly congestive heart failure acute exacerbation. 2. Chronic obstructive pulmonary disease acute exacerbation. 3. Troponin 0.105. 4. Hepatitis C history. 5. History of methicillin-resistant Staphylococcus aureus. 6. Multiple medical issues. RECOMMENDATIONS AND DISCUSSION: I recommend to continue current management and continue with monitoring. Continue with Cardizem. Closely follow with Cardiology. Continue with bronchodilators and steroids. Closely follow with Pulmonary and Cardiology. Prognosis guarded. Further recommendations to follow. MMODL / IJN: [id number] /
[2021-11-23 06:13] LABS: Glucose,Whole Blood 147 mg/dL (70-110)
[2021-11-23] MEDS: INSULIN ASPART (NovoLOG) 100 UNIT/ML VIAL SQ SCH ×5 (06:28→23:29)
[2021-11-23] MEDS: PANTOPRAZOLE 40 MG TABLET PO SCH (06:29)
[2021-11-23] MEDS: BUDESONIDE 1 MG/2 ML NEBU INHALATION SCH ×2 (07:40→20:03)
[2021-11-23] MEDS: FORMOTEROL FUMARATE 20 MCG/2 ML NEBU INHALATION SCH ×2 (07:40→20:03)
[2021-11-23] MEDS: IPRATROPIUM-ALBUTEROL 3 ML NEB INHALATION SCH ×4 (07:40→20:04)
[2021-11-23] MEDS ORDERED: SPIRONOLACTONE 25 MG TAB PO SCH (09:00)
[2021-11-23] MEDS: ASPIRIN 81 MG PO SCH (10:05)
[2021-11-23] MEDS: METOPROLOL SUCCINATE (ER) 25 MG TAB.ER.24H PO SCH ×2 (10:06→20:48)
[2021-11-23] MEDS: FUROSEMIDE 20 MG TAB PO SCH (10:06)
[2021-11-23] MEDS: SPIRONOLACTONE 25 MG TAB PO SCH (10:06)
[2021-11-23] MEDS: ATORVASTATIN 20 MG TAB PO SCH (10:06)
[2021-11-23] MEDS: HEPARIN SODIUM,PORCINE/PF 5,000 UNIT/0.5 ML SYRINGE SQ SCH ×2 (10:06→20:48)
[2021-11-23] MEDS: BUPRENORPHINE-NALOX 8-2 MG TAB 1 EACH TAB.SUBL SL SCH (10:06)
[2021-11-23] MEDS: LACTULOSE 20 GM/30 ML CUP PO SCH ×3 (10:08→20:49)
[2021-11-23 10:53] LABS: Calcium 8.3 mg/dL (8.4-10.2); Potassium 4.5 mmol/L (3.5-5.1)
[2021-11-23 11:54] LABS: Glucose,Whole Blood 142 mg/dL (70-110)
--- NOTE | 2021-11-23 12:15 | P.PN ---
Subjective This is a 65-year-old male with a past medical history of substance abuse, IV drug abuse on Suboxone, COPD and hepatitis C viral infection. 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 We have been following the patient for atrial tachycardia and cardiomyopathy. Patient presented to the ER with worsening shortness of breath. He was diagnosed with acute COPD exacerbation and acute CHF exacerbation. He was initially in the ICU requiring BIPAP. Initial EKG showed 1:1 atrial tachycardia with RVR. Troponins mildly elevated and BNP greater than 6000. Echo revealed and EF 20-25%, severe secondary mitral regurgitation. On 11/21 Dr. Nur performed left carotid massage when the patient spontaneously cardioverted to sinus rhythm. He was transferred out of the ICU to 3S cardiac stepdown unit. Patient is seen and examined at bedside, he is up in the bedside chair feels well. Denies any chest pain or shortness of breath. examined lying in bed. And he does not feel any palpitations. maintaining sinus mechanism on the monitor, brief episodes of A tach noted. BP remains low 99/66 Hr 70s. on 4L high flow nasal cannula GENERAL: In no acute distress. NECK: Supple without JVD LUNGS: Breath sounds diminished, wheezing to auscultation bilaterally. Respiration equal and unlabored. No wheezes, rales or rhonchi. HEART: Regular rate and rhythm. Systolic murmur at apex. S1 and S2 heard. EXTREMITIES: Normal range of motion, no edema. No clubbing or cyanosis. Peripheral pulses intact. ASSESSMENT Focal atrial tachycardia, conversion to sinus rhythm with left carotid massage on 11/21. Acute heart failure exacerbation with reduced EF 20-25% Acute COPD exacerbation Severe mitral regurgitation Cardiomyopathy, global dysfunction, unknown type Elevated troponin, flat trend Anemia Current smoker History of substance abuse, IV drug abuse on Suboxone History of hepatitis C viral infection PLAN Decrease Lasix to 20mg PO daily Start low dose spironolactone Continue beta jayson Unable to start ACEI/ARB/Arni secondary to hypotension Aspirin and statin From a cardiology perspective, patient is improving and stable. Recommend close follow up in the office within 1 week on discharge. Nurse Practitioner note has been reviewed, I agree with a documented findings and plan of care. Patient was seen and examined. Objective - Vital Signs Vital signs: Vital Signs Temp 97.7 F 11/23/21 09:30 Pulse 48 L 11/23/21 11:41 Resp 18 11/23/21 09:39 BP 90/70 11/23/21 09:39 Pulse Ox 100 11/23/21 09:39 FiO2 40 11/22/21 19:34 Intake & Output 11/22/21 11/23/21 11/23/21 18:59 06:59 18:59 Intake Total 240 Output Total 500 250 Balance -260 -250 Intake: Oral 240 Output: Urine 500 250 Other: # Voids 0 2 - Labs CBC & Chem 7: 11/22/21 05:41 11/23/21 09:26 Labs: Abnormal Lab Results - Last 24 Hours (Table) 11/22/21 11/22/21 11/22/21 Range/Units 12:01 17:21 21:08 Chloride (98-107) mmol/L BUN (9-20) mg/dL Creatinine (0.66-1.25) mg/dL Glucose (74-99) mg/dL POC Glucose (mg/dL) 162 H 170 H 159 H (70-110) mg/dL Calcium (8.4-10.2) mg/dL 11/23/21 11/23/21 11/23/21 Range/Units 04:22 06:10 09:26 Chloride 94 L (98-107) mmol/L BUN 71 H (9-20) mg/dL Creatinine 1.37 H (0.66-1.25) mg/dL Glucose 140 H (74-99) mg/dL POC Glucose (mg/dL) 157 H 147 H (70-110) mg/dL Calcium 8.3 L (8.4-10.2) mg/dL
[2021-11-23] MEDS: predniSONE 20 MG TAB PO SCH (12:17)
--- NOTE | 2021-11-23 14:54 | P.PN ---
Subjective Progress Note Date: 11/23/21 65-year-old male patient, previous history of substance abuse, IVDA and the patient is currently on Suboxone along with known history of COPD and hepatitis C viral infection, came into the emergency department because of worsening shortness of breath. He is known to have COPD. He stated that he was having worsening shortness of breath and he was seen at the urgent care from 2 days ago and he was given treatment that improved his breathing and subsequently his condition got worse and he end up coming into the emergency department. The patient has a nonproductive cough. No chest pain. No angina. No pleurisy. No hemoptysis. No fever. No chills. No previous history of cardiac disease. No myocardial infarction. Is not using any maintenance respiratory medications. The patient has also noted some increased edema lower extremity is bilaterally. No palpitations. No altered mentation. His chest x-ray was consistent with COPD along with cardiomegaly and pulmonary vascular congestion. The patient was afebrile. He was quite short of breath and immediately was placed on a BiPAP at a pressure of 12/5 cm of water. He was given IV Lasix and he diuresed more than 2 L of urine output. The patient had blood work that showed normal electrolytes, normal renal function, white cell count 9.3 with hemoglobin 10.7 and a platelet count of 207. The patient's LFTs were essentially within normal limits. ProBNP level was 6740 and the initial troponin was at 0.105. Lactic acid level was at 1.7. EKG showed a normal sinus tachycardia without any acute ischemic changes. Coagulation profile was normal. COVID 19 testing was negative. 11/21 2021, the patient is currently in the intensive care unit and the patient is being seen for a follow-up. The patient is less short of breath compared to yesterday. He is still bronchospastic and wheezy although less compared to yesterday. He continues to have a hoarse voice. CAT scan of the chest was completed today and it showed small to moderate-sized right-sided pleural effusion. Minimal left-sided pleural effusion. There was also compressive atelectasis adjacent to the pleural effusion within the dependent lungs. Nonenlarged mediastinal lymph nodes and AND no pulmonary lesions. The patient did have hepatic cysts. The patient is being treated with a combination of DuoNeb nebulized treatments around the clock and the patient is also on IV Solu- Medrol 60 mg every 6 hours. The patient is also being diuresis with Lasix 40 mg IV every 12 hours. Is producing adequate urine output and the patient's fluid balance is -3.5 L over the past 24 hours. The white cell count is at 6.8 and platelet count of 157. BUN is a 32 with a creatinine of 1.07. Serum bicarbonate 28. Troponins are 0.09 and 0.07 respectively 2. COVID 19 testing is negative. 11/22/2021, the patient is being seen for a follow-up. He is known to have COPD and advanced cardiomyopathy and the echocardiogram showed an ejection fraction of 20-25% along with severe mitral regurgitation, pulmonary artery pressure of 37. He also underwent a CAT scan of the chest that showed COPD and a small to moderate-sized right-sided pleural effusion. The patient continues to diurese IV Lasix. Overall fluid balance is -2.4 L over the past 24 hours. He is currently down to 2 L of oxygen by nasal cannula. Doing well. Less short of breath. Able to speak longer sentences. Remains on DuoNeb nebulized treatment [id number]. Remains on IV Solu-Medrol. Still congested. No angina. No palpitations. He is on IV Lasix will be switched to oral Lasix. Overnight, he had some difficulties with tachycardia and he was given and subsequently taken off Cardizem drip and this was done by cardiology. He was started on metoprolol XL 25 mg by mouth twice a day for rate control. 11/23/2021, associated patient for follow-up. The patient is doing well in no specific complaints. He got transferred out of the intensive care unit yesterday. His oxygen level is improved and the patient's been on oxygen at 2 L per minute nasal cannula. He remains on IV Solu-Medrol. Is on DuoNeb neb last treatment [id number]. He is also on Lasix and this has been switched to 20 mg on a daily basis. I'm going to discontinue also the IV Solu-Medrol and put the patient prednisone burst taper. The patient isdoing well and he reports improvement in her respiratory status.meanwhile, the blood work from today shows a creatinine 1.3 with a 71 and the sodium level of 138. Objective - Vital Signs Vital signs: Vital Signs Temp 97.3 F L 11/23/21 12:15 Pulse 70 11/23/21 14:30 Resp 18 11/23/21 12:15 BP 106/79 11/23/21 12:15 Pulse Ox 93 L 11/23/21 12:15 FiO2 40 11/22/21 19:34 Intake & Output 11/22/21 11/23/21 11/23/21 18:59 06:59 18:59 Intake Total 240 Output Total 500 250 Balance -260 -250 Intake: Oral 240 Output: Urine 500 250 Other: # Voids 0 2 - Exam Gen. appearance the patient is in mild respiratory distress currently on 2 L of oxygen by nasal cannula and he also has a hoarse voice Head exam was generally normal. There was no scleral icterus or corneal arcus. Mucous membranes were moist. Neck was supple and with jugular venous distension, thyromegaly, or carotid bruits. Carotids were easily palpable bilaterally. There was no adenopathy. Lungs sounds are diminished bilaterally and the patient diffuse expiratory wheezes throughout the lung chand and prolongation of ventilation phase of breathing Heart sounds are tachycardic, distant heart sounds,Cardiac exam revealed the PMI to be normally situated and sized. The rhythm was regular and no extrasystoles were noted during several minutes of auscultation. The first and second heart sounds were normal and physiologic splitting of the second heart sound was noted. There were no murmurs, rubs, clicks, or gallops. Abdominal exam revealed normal bowel sounds. The abdomen was soft, non-tender, and without masses, organomegaly, or appreciable enlargement of the abdominal aorta. Examination of the extremities revealed easily palpable radial, femoral and pedal pulses. There was no cyanosis, clubbing or and there is +1 pitting edema lower extremity is bilaterally. Examination of the skin revealed no evidence of significant rashes, suspicious appearing nevi or other concerning lesions. Neurologically, the patient is awake and alert and the patient does not have any focal neurological deficit. Cranial nerves are essentially intact. - Labs CBC & Chem 7: 11/22/21 05:41 11/23/21 09:26 Labs: Abnormal Lab Results - Last 24 Hours (Table) 11/22/21 11/22/21 11/23/21 Range/Units 17:21 21:08 04:22 Chloride (98-107) mmol/L BUN (9-20) mg/dL Creatinine (0.66-1.25) mg/dL Glucose (74-99) mg/dL POC Glucose (mg/dL) 170 H 159 H 157 H (70-110) mg/dL Calcium (8.4-10.2) mg/dL 11/23/21 11/23/21 11/23/21 Range/Units 06:10 09:26 11:53 Chloride 94 L (98-107) mmol/L BUN 71 H (9-20) mg/dL Creatinine 1.37 H (0.66-1.25) mg/dL Glucose 140 H (74-99) mg/dL POC Glucose (mg/dL) 147 H 142 H (70-110) mg/dL Calcium 8.3 L (8.4-10.2) mg/dL Assessment and Plan Plan: Acute exacerbation of COPD, improving and the patient has no evidence of pneumonia or lung masses , improving on a combination of bronchodilators and steroids, clinically improving, remains on bronchodilators and systemic steroids, clinically improving Acute exacerbation of chronic CHF with evidence of pulmonary vessel congestion, and elevation in the pro BNP level, given Lasix in the emergency department with excellent diuresis and subsequent further improvement, and the patient remains negative fluid balance, and echocardiac and showed systolic heart failure with an ejection fraction of 20-25% Severe mitral regurgitation Mild pulmonary hypertension Chronic systolic heart failure with an ejection fraction of 20-25% Acute hypoxic respiratory failure, initially on a BiPAP at a pressure of 12/5 and currently the patient is off BiPAP and the patient is currently on 2 L of nasal cannula Mild elevation of the troponins, consider acute non-ST elevation myocardial infarction Sinus tachycardia, improving Chronic smoker Hepatitis C viral infection Remote history of IVDA Remote history of substance abuse with prescription narcotics and the patient is currently on Suboxone Chronic smoker hoarseness with a negative CAT scan of the chest History of shingles Plan the patient is clinically improving Titrate FiO2 as tolerated to maintain saturation above 90%, currently on 2 L discontinue IV Solu-Medrol and put the patient prednisone burst taper Continue Lasix 20 mg by mouth daily Continue DuoNeb nebulized treatment [id number] Continue Perforomist and Pulmicort neb last treatment twice a day Smoking cessation counseling CAT scan of the chest showed no evidence of any lung masses or mediastinal lymphadenopathy. The CAT scan shows small to moderate-sized right-sided pleural effusion Echocardiogram was noted Cardiology consultation is appreciated Heparin subcu for DVT prophylaxis will continue to follow possible discharge within the next 24-48 hours. Access patient's oxygen need and do a home O2 evaluation time of discharge
[2021-11-23 16:52] LABS: Glucose,Whole Blood 161 mg/dL (70-110)
[2021-11-23] MEDS: ALPRAZolam 0.25 MG TAB PO PRN (17:13)
[2021-11-23 23:27] LABS: Glucose,Whole Blood 143 mg/dL (70-110)
[2021-11-24] MEDS: ALPRAZolam 0.25 MG TAB PO PRN ×3 (04:31→23:30)
[2021-11-24 06:28] LABS: Glucose,Whole Blood 141 mg/dL (70-110)
[2021-11-24] MEDS: INSULIN ASPART (NovoLOG) 100 UNIT/ML VIAL SQ SCH ×3 (06:36→17:06)
[2021-11-24] MEDS: PANTOPRAZOLE 40 MG TABLET PO SCH (06:41)
[2021-11-24] MEDS: HEPARIN SODIUM,PORCINE/PF 5,000 UNIT/0.5 ML SYRINGE SQ SCH ×2 (07:40→20:44)
[2021-11-24] MEDS: ATORVASTATIN 20 MG TAB PO SCH (07:40)
[2021-11-24] MEDS: SPIRONOLACTONE 25 MG TAB PO SCH (07:40)
[2021-11-24] MEDS: METOPROLOL SUCCINATE (ER) 25 MG TAB.ER.24H PO SCH ×2 (07:41→20:44)
[2021-11-24] MEDS: FUROSEMIDE 20 MG TAB PO SCH (07:41)
[2021-11-24] MEDS: ASPIRIN 81 MG PO SCH (07:41)
[2021-11-24] MEDS: predniSONE 20 MG TAB PO SCH (07:41)
[2021-11-24] MEDS: LACTULOSE 20 GM/30 ML CUP PO SCH ×3 (07:41→20:45)
[2021-11-24] MEDS: BUDESONIDE 1 MG/2 ML NEBU INHALATION SCH ×2 (08:46→19:11)
[2021-11-24] MEDS: IPRATROPIUM-ALBUTEROL 3 ML NEB INHALATION SCH ×4 (08:46→19:11)
[2021-11-24] MEDS: FORMOTEROL FUMARATE 20 MCG/2 ML NEBU INHALATION SCH ×2 (08:46→19:11)
[2021-11-24] MEDS: BUPRENORPHINE-NALOX 8-2 MG TAB 1 EACH TAB.SUBL SL SCH (09:01)
[2021-11-24 10:39] LABS: Calcium 7.9 mg/dL (8.4-10.2); Potassium 4.6 mmol/L (3.5-5.1)
[2021-11-24 10:49] LABS: Basophils % (A) 0 %; Eosinophils % (A) 0 %; Hypochromasia Moderate; Lymphocytes # (A) 1.1 k/uL (1.0-4.8); Lymphocytes % (A) 11 %; MCHC 30.7 g/dL (31.0-37.0); MCV 94.6 fL (80.0-100.0); Mean Platelet Volume 10.2; Monocytes # (A) 0.7 k/uL (0-1.0); Monocytes % (A) 7 %; Neutrophils % (A) 80 %; Platelet Count 187 k/uL (150-450); RBC 3.81 m/uL (4.30-5.90); RDW 14.6 % (11.5-15.5)
[2021-11-24 11:31] LABS: Glucose,Whole Blood 267 mg/dL (70-110)
--- NOTE | 2021-11-24 12:38 | P.PN ---
Subjective Progress Note Date: 11/23/21 65-year-old male patient, previous history of substance abuse, IVDA and the patient is currently on Suboxone along with known history of COPD and hepatitis C viral infection, came into the emergency department because of worsening shortness of breath. He is known to have COPD. He stated that he was having worsening shortness of breath and he was seen at the urgent care from 2 days ago and he was given treatment that improved his breathing and subsequently his condition got worse and he end up coming into the emergency department. The patient has a nonproductive cough. No chest pain. No angina. No pleurisy. No hemoptysis. No fever. No chills. No previous history of cardiac disease. No myocardial infarction. Is not using any maintenance respiratory medications. The patient has also noted some increased edema lower extremity is bilaterally. No palpitations. No altered mentation. His chest x-ray was consistent with COPD along with cardiomegaly and pulmonary vascular congestion. The patient was afebrile. He was quite short of breath and immediately was placed on a BiPAP at a pressure of 12/5 cm of water. He was given IV Lasix and he diuresed more than 2 L of urine output. The patient had blood work that showed normal electrolytes, normal renal function, white cell count 9.3 with hemoglobin 10.7 and a platelet count of 207. The patient's LFTs were essentially within normal limits. ProBNP level was 6740 and the initial troponin was at 0.105. Lactic acid level was at 1.7. EKG showed a normal sinus tachycardia without any acute ischemic changes. Coagulation profile was normal. COVID 19 testing was negative. Objective - Vital Signs Vital signs: Vital Signs Temp 97.3 F L 11/23/21 12:15 Pulse 70 11/23/21 12:15 Resp 18 11/23/21 12:15 BP 106/79 11/23/21 12:15 Pulse Ox 93 L 11/23/21 12:15 FiO2 40 11/22/21 19:34 Intake & Output 11/22/21 11/23/21 11/23/21 18:59 06:59 18:59 Intake Total 240 Output Total 500 250 Balance -260 -250 Intake: Oral 240 Output: Urine 500 250 Other: # Voids 0 2 - Exam Gen.mild respiratory distress currently on 2 L of oxygen by nasal cannula Head exam; no scleral icterus or corneal arcus. Mucous membranes were moist. Neck was supple and with jugular venous distension, thyromegaly, or carotid bruits. Lungs sounds are diminished bilaterally and the patient diffuse expiratory wheezes throughout the lung chand and prolongation of ventilation phase of tam thing Heart sounds are tachycardic, distant heart sounds Abdominal exam revealed normal bowel sounds. The abdomen was soft, non-tender, and without masses, organomegaly, or appreciable enlargement of the abdominal aorta. Extremities; revealed easily palpable radial, femoral and pedal pulses. There w as no cyanosis, clubbing or and there is +1 pitting edema lower extremity is bilaterally. Skin; unremarkable Neurologically, the patient is awake and alert and the patient does not have any focal neurological deficit. Cranial nerves are essentially intact. - Labs CBC & Chem 7: 11/24/21 09:46 11/24/21 09:46 Labs: Abnormal Lab Results - Last 24 Hours (Table) 11/22/21 11/22/21 11/23/21 Range/Units 17:21 21:08 04:22 Chloride (98-107) mmol/L BUN (9-20) mg/dL Creatinine (0.66-1.25) mg/dL Glucose (74-99) mg/dL POC Glucose (mg/dL) 170 H 159 H 157 H (70-110) mg/dL Calcium (8.4-10.2) mg/dL 11/23/21 11/23/21 11/23/21 Range/Units 06:10 09:26 11:53 Chloride 94 L (98-107) mmol/L BUN 71 H (9-20) mg/dL Creatinine 1.37 H (0.66-1.25) mg/dL Glucose 140 H (74-99) mg/dL POC Glucose (mg/dL) 147 H 142 H (70-110) mg/dL Calcium 8.3 L (8.4-10.2) mg/dL Assessment and Plan Assessment: 1. Acute exacerbation systolic CHF; patient diuresed well with IV Lasix; echocardiogram reveals EF of 20-25%; we will continue to monitor strict WEST's, daily weights, low salt and fluid restricted diet; cardiology on board and recommending to decrease Lasix down to 20 mg daily; patient is placed on low- dose Aldactone; continue with beta blockers - Unable to start ACEI/ARB/Arni secondary to hypotension -- Aspirin and statin 2. Acute exacerbation COPD; chest x-ray reveals no evidence of pneumonia or lung masses - Patient remains on bronchodilators and steroids and does show clinical improvement - CAT scan of the chest showed no evidence of any lung masses or mediastinal lymphadenopathy. The CAT scan shows small to moderate-sized right-sided pleural effusion 3. Acute hypoxic respiratory failure; patient was initially maintained on BiPAP but is being down to O2 per nasal cannula at 2 L; maintaining O2 saturation above 90% 4. Elevated troponin; possible demand ischemia related to hypoxic respiratory failure with CHF and COPD exacerbation; flat trend 5. Severe mitral regurgitation; outpatient follow-up 6. History of substance abuse; patient is currently on Suboxone DVT prophylaxis; SCDs/subcu heparin CODE STATUS; full code
--- NOTE | 2021-11-24 14:04 | P.PN ---
Subjective Progress Note Date: 11/24/21 65-year-old male patient, previous history of substance abuse, IVDA and the patient is currently on Suboxone along with known history of COPD and hepatitis C viral infection, came into the emergency department because of worsening shortness of breath. He is known to have COPD. He stated that he was having worsening shortness of breath and he was seen at the urgent care from 2 days ago and he was given treatment that improved his breathing and subsequently his condition got worse and he end up coming into the emergency department. The patient has a nonproductive cough. No chest pain. No angina. No pleurisy. No hemoptysis. No fever. No chills. No previous history of cardiac disease. No myocardial infarction. Is not using any maintenance respiratory medications. The patient has also noted some increased edema lower extremity is bilaterally. No palpitations. No altered mentation. His chest x-ray was consistent with COPD along with cardiomegaly and pulmonary vascular congestion. The patient was afebrile. He was quite short of breath and immediately was placed on a BiPAP at a pressure of 12/5 cm of water. He was given IV Lasix and he diuresed more than 2 L of urine output. The patient had blood work that showed normal electrolytes, normal renal function, white cell count 9.3 with hemoglobin 10.7 and a platelet count of 207. The patient's LFTs were essentially within normal limits. ProBNP level was 6740 and the initial troponin was at 0.105. Lactic acid level was at 1.7. EKG showed a normal sinus tachycardia without any acute ischemic changes. Coagulation profile was normal. COVID 19 testing was negative. 11/21 2021, the patient is currently in the intensive care unit and the patient is being seen for a follow-up. The patient is less short of breath compared to yesterday. He is still bronchospastic and wheezy although less compared to yesterday. He continues to have a hoarse voice. CAT scan of the chest was completed today and it showed small to moderate-sized right-sided pleural effusion. Minimal left-sided pleural effusion. There was also compressive atelectasis adjacent to the pleural effusion within the dependent lungs. Nonenlarged mediastinal lymph nodes and AND no pulmonary lesions. The patient did have hepatic cysts. The patient is being treated with a combination of DuoNeb nebulized treatments around the clock and the patient is also on IV Solu- Medrol 60 mg every 6 hours. The patient is also being diuresis with Lasix 40 mg IV every 12 hours. Is producing adequate urine output and the patient's fluid balance is -3.5 L over the past 24 hours. The white cell count is at 6.8 and platelet count of 157. BUN is a 32 with a creatinine of 1.07. Serum bicarbonate 28. Troponins are 0.09 and 0.07 respectively 2. COVID 19 testing is negative. 11/22/2021, the patient is being seen for a follow-up. He is known to have COPD and advanced cardiomyopathy and the echocardiogram showed an ejection fraction of 20-25% along with severe mitral regurgitation, pulmonary artery pressure of 37. He also underwent a CAT scan of the chest that showed COPD and a small to moderate-sized right-sided pleural effusion. The patient continues to diurese IV Lasix. Overall fluid balance is -2.4 L over the past 24 hours. He is currently down to 2 L of oxygen by nasal cannula. Doing well. Less short of breath. Able to speak longer sentences. Remains on DuoNeb nebulized treatment [id number]. Remains on IV Solu-Medrol. Still congested. No angina. No palpitations. He is on IV Lasix will be switched to oral Lasix. Overnight, he had some difficulties with tachycardia and he was given and subsequently taken off Cardizem drip and this was done by cardiology. He was started on metoprolol XL 25 mg by mouth twice a day for rate control. 11/23/2021, associated patient for follow-up. The patient is doing well in no specific complaints. He got transferred out of the intensive care unit yesterday. His oxygen level is improved and the patient's been on oxygen at 2 L per minute nasal cannula. He remains on IV Solu-Medrol. Is on DuoNeb neb last treatment [id number]. He is also on Lasix and this has been switched to 20 mg on a daily basis. I'm going to discontinue also the IV Solu-Medrol and put the patient prednisone burst taper. The patient isdoing well and he reports improvement in her respiratory status.meanwhile, the blood work from today shows a creatinine 1.3 with a 71 and the sodium level of 138. 11/24/2021, the patient is being seen for a follow-up. Doing well and the patient has no specific complaints. The patient is resting comfortably in bed. He was transferred out of the intensive care unit and the patient continues to be on DuoNeb nebulized treatment [id number] and a prednisone burst taper. His cardiac condition is also stable at the patient has been adequately diuresed and the patient is currently on oral Lasix and Aldactone. He is ambulating. He is on metoprolol XL 25 mg by mouth twice a day and he is also on his home medications including aspirin, Lipitor and he takes Suboxone Objective - Vital Signs Vital signs: Vital Signs Temp 97.6 F 11/24/21 07:36 Pulse 73 11/24/21 13:29 Resp 20 11/24/21 11:15 BP 94/61 11/24/21 11:15 Pulse Ox 86 L 11/24/21 11:55 FiO2 40 11/23/21 16:55 Intake & Output 11/23/21 11/24/21 11/24/21 18:59 06:59 18:59 Intake Total 250 118 Output Total 373 600 Balance -373 -350 118 Intake: Oral 250 118 Output: Urine 373 600 Other: Voiding Method Toilet Urinal # Voids 2 - Exam Gen. appearance the patient is in mild respiratory distress currently on 2 L of oxygen by nasal cannula and he also has a hoarse voice Head exam was generally normal. There was no scleral icterus or corneal arcus. Mucous membranes were moist. Neck was supple and with jugular venous distension, thyromegaly, or carotid bruits. Carotids were easily palpable bilaterally. There was no adenopathy. Lungs sounds are diminished bilaterally and the patient diffuse expiratory whe ezes throughout the lung chand and prolongation of ventilation phase of breathing Heart sounds are tachycardic, distant heart sounds,Cardiac exam revealed the PMI to be normally situated and sized. The rhythm was regular and no extrasystoles were noted during several minutes of auscultation. The first and second heart sounds were normal and physiologic splitting of the second heart sound was note d. There were no murmurs, rubs, clicks, or gallops. Abdominal exam revealed normal bowel sounds. The abdomen was soft, non-tender, and without masses, organomegaly, or appreciable enlargement of the abdominal aorta. Examination of the extremities revealed easily palpable radial, femoral and pedal pulses. There was no cyanosis, clubbing or and there is +1 pitting edema lower extremity is bilaterally. Examination of the skin revealed no evidence of significant rashes, suspicious appearing nevi or other concerning lesions. Neurologically, the patient is awake and alert and the patient does not have any focal neurological deficit. Cranial nerves are essentially intact. - Labs CBC & Chem 7: 11/24/21 09:46 11/24/21 09:46 Labs: Abnormal Lab Results - Last 24 Hours (Table) 11/23/21 11/23/21 11/24/21 Range/Units 16:51 23:25 06:26 RBC (4.30-5.90) m/uL Hgb (13.0-17.5) gm/dL Hct (39.0-53.0) % MCHC (31.0-37.0) g/dL Neutrophils # (1.3-7.7) k/uL Sodium (137-145) mmol/L Chloride (98-107) mmol/L BUN (9-20) mg/dL Creatinine (0.66-1.25) mg/dL Glucose (74-99) mg/dL POC Glucose (mg/dL) 161 H 143 H 141 H (70-110) mg/dL Calcium (8.4-10.2) mg/dL 11/24/21 11/24/21 11/24/21 Range/Units 09:46 09:46 11:25 RBC 3.81 L (4.30-5.90) m/uL Hgb 11.0 L (13.0-17.5) gm/dL Hct 36.0 L (39.0-53.0) % MCHC 30.7 L (31.0-37.0) g/dL Neutrophils # 8.0 H (1.3-7.7) k/uL Sodium 136 L (137-145) mmol/L Chloride 92 L (98-107) mmol/L BUN 81 H (9-20) mg/dL Creatinine 1.44 H (0.66-1.25) mg/dL Glucose 190 H (74-99) mg/dL POC Glucose (mg/dL) 267 H (70-110) mg/dL Calcium 7.9 L (8.4-10.2) mg/dL Assessment and Plan Plan: Acute exacerbation of COPD, improving and the patient has no evidence of pneumonia or lung masses , improving on a combination of bronchodilators and steroids, clinically improving, remains on bronchodilators and systemic steroids, clinically improving Acute exacerbation of chronic CHF with evidence of pulmonary vessel congestion, and elevation in the pro BNP level, given Lasix in the emergency department with excellent diuresis and subsequent further improvement, and the patient remains negative fluid balance, and echocardiac and showed systolic heart failure with an ejection fraction of 20-25% Severe mitral regurgitation Mild pulmonary hypertension Chronic systolic heart failure with an ejection fraction of 20-25% Acute hypoxic respiratory failure, initially on a BiPAP at a pressure of 12/5 and currently the patient is off BiPAP and the patient is currently on 2 L of nasal cannula Mild elevation of the troponins, consider acute non-ST elevation myocardial infarction Sinus tachycardia, improving Chronic smoker Hepatitis C viral infection Remote history of IVDA Remote history of substance abuse with prescription narcotics and the patient is currently on Suboxone Chronic smoker hoarseness with a negative CAT scan of the chest History of shingles Plan the patient is clinically improving Patient is currently on room air oxygen Arrange home O2 Today's nebulizer Prednisone burst taper Smoking cessation counseling CAT scan of the chest showed no evidence of any lung masses or mediastinal lymphadenopathy. The CAT scan shows small to moderate-sized right-sided pleural effusion Echocardiogram was noted Cardiology consultation is appreciated Heparin subcu for DVT prophylaxis will continue to follow Family discharged home from the pulmonary standpoint, please obtain cardiac clearance
[2021-11-24 17:07] LABS: Glucose,Whole Blood 110 mg/dL (70-110)
[2021-11-24 20:13] LABS: Glucose,Whole Blood 116 mg/dL (70-110)
[2021-11-24] MEDS: ACETAMINOPHEN TAB 325 MG TAB PO PRN (23:30)
[2021-11-25 00:12] LABS: Glucose,Whole Blood 106 mg/dL (70-110)
[2021-11-25] MEDS: INSULIN ASPART (NovoLOG) 100 UNIT/ML VIAL SQ SCH ×5 (00:41→23:20)
[2021-11-25 06:17] LABS: Glucose,Whole Blood 102 mg/dL (70-110)
[2021-11-25] MEDS: PANTOPRAZOLE 40 MG TABLET PO SCH (06:35)
[2021-11-25 07:51] LABS: Basophils % (A) 0 %; Eosinophils % (A) 0 %; HCT 36.3 % (39.0-53.0); HGB 11.4 gm/dL (13.0-17.5); Hypochromasia Slight; Lymphocytes # (A) 1.7 k/uL (1.0-4.8); Lymphocytes % (A) 16 %; MCH 29.2 pg (25.0-35.0); MCHC 31.4 g/dL (31.0-37.0); MCV 93.1 fL (80.0-100.0); Mean Platelet Volume 9.9; Monocytes % (A) 10 %; Neutrophils # (A) 7.4 k/uL (1.3-7.7); Neutrophils % (A) 71 %; Platelet Count 165 k/uL (150-450); RDW 14.6 % (11.5-15.5); WBC 10.4 k/uL (3.8-10.6)
[2021-11-25 08:11] LABS: Calcium 7.8 mg/dL (8.4-10.2); Potassium 5.2 mmol/L (3.5-5.1)
[2021-11-25] MEDS: IPRATROPIUM-ALBUTEROL 3 ML NEB INHALATION SCH ×4 (08:36→19:41)
[2021-11-25] MEDS: FORMOTEROL FUMARATE 20 MCG/2 ML NEBU INHALATION SCH ×2 (08:36→19:50)
[2021-11-25] MEDS: BUDESONIDE 1 MG/2 ML NEBU INHALATION SCH ×2 (08:36→19:41)
[2021-11-25] MEDS: predniSONE 20 MG TAB PO SCH (09:04)
[2021-11-25] MEDS: LACTULOSE 20 GM/30 ML CUP PO SCH ×3 (09:04→22:10)
[2021-11-25] MEDS: HEPARIN SODIUM,PORCINE/PF 5,000 UNIT/0.5 ML SYRINGE SQ SCH ×2 (09:04→22:10)
[2021-11-25] MEDS: FUROSEMIDE 20 MG TAB PO SCH (09:04)
[2021-11-25] MEDS: ATORVASTATIN 20 MG TAB PO SCH (09:04)
[2021-11-25] MEDS: METOPROLOL SUCCINATE (ER) 25 MG TAB.ER.24H PO SCH ×2 (09:04→22:10)
[2021-11-25] MEDS: SPIRONOLACTONE 25 MG TAB PO SCH (09:04)
[2021-11-25] MEDS: BUPRENORPHINE-NALOX 8-2 MG TAB 1 EACH TAB.SUBL SL SCH (09:04)
[2021-11-25] MEDS: ALPRAZolam 0.25 MG TAB PO PRN ×2 (09:04→23:20)
[2021-11-25] MEDS: ASPIRIN 81 MG PO SCH (09:04)
--- NOTE | 2021-11-25 10:13 | P.PN ---
Subjective Progress Note Date: 11/25/21 The patient is a 65-year-old male with past medical history of hepatitis C, COPD, and current smoker, who is currently admitted to the hospital with congestive heart failure and acute COPD exacerbation. Initial EKG showed 1:1 atrial tachycardia with RVR. Troponins mildly elevated and BNP greater than 6000. Cardiology was consulted for congestive heart failure. Echocardiogram revealed severely reduced LV function at 20-25%. Global hypokinesis. The patient was interviewed and examined lying in bed. He states he has been up ambulating around his room. He is interested in being discharged. No chest pain or chest pressure. No shortness of breath. And he does not feel any palpitations. No dizziness or lightheadedness. GENERAL: Ill-appearing, malnourished and in no acute distress. NECK: Supple without JVD or thyromegaly. LUNGS: Breath sounds coarse to auscultation bilaterally. Respiration equal and unlabored. Rhonchi throughout HEART: Regular rate and rhythm without murmurs, rubs or gallops. S1 and S2 heard. EXTREMITIES: Normal range of motion, no edema. Cool to touch. Peripheral puls es intact. VITALS: Blood pressure 95/71, pulse 79, respiratory rate 24, SpO2 93% on 4 L nasal cannu la TELEMETRY: Sinus mechanism with first-degree AV block. Brief runs of atrial tachycardia with RVR. Patient became hypotensive overnight with Cardizem drip. LABS: WBC 10.4, hemoglobin 11.4, hematocrit 36.3, sodium 136, potassium 5.2, BUN 97, creatinine 1.53 IMPRESSION: Focal atrial tachycardia, conversion to sinus rhythm with left carotid massage Cardiomyopathy, global dysfunction, unknown type Elevated troponin, flat trend Acute CHF exacerbation Acute COPD exacerbation Anemia Current smoker PLAN: Continue current cardiac medication regimen No further recommendations cardiac standpoint Outpatient follow-up thereafter I am dictating on behalf of Dr Ramin Nur's history/physical and assessment/plan. Objective - Vital Signs Vital signs: Vital Signs Temp 98.1 F 11/25/21 08:58 Pulse 79 11/25/21 08:58 Resp 24 11/25/21 08:58 BP 95/71 11/25/21 08:58 Pulse Ox 93 L 11/25/21 08:58 FiO2 40 11/23/21 16:55 Intake & Output 11/24/21 11/25/2122 18:59 06:59 18:59 Intake Total 118 700 Output Total 650 550 Balance -532 150 Intake: Oral 118 700 Output: Urine 650 550 Other: Voiding Method Toilet Toilet Urinal Urinal - Labs CBC & Chem 7: 11/25/21 07:13 11/25/21 07:13 Labs: Abnormal Lab Results - Last 24 Hours (Table) 11/24/21 11/24/21 11/24/21 Range/Units 09:46 09:46 11:25 RBC 3.81 L (4.30-5.90) m/uL Hgb 11.0 L (13.0-17.5) gm/dL Hct 36.0 L (39.0-53.0) % MCHC 30.7 L (31.0-37.0) g/dL Neutrophils # 8.0 H (1.3-7.7) k/uL Sodium 136 L (137-145) mmol/L Potassium (3.5-5.1) mmol/L Chloride 92 L (98-107) mmol/L BUN 81 H (9-20) mg/dL Creatinine 1.44 H (0.66-1.25) mg/dL Glucose 190 H (74-99) mg/dL POC Glucose (mg/dL) 267 H (70-110) mg/dL Calcium 7.9 L (8.4-10.2) mg/dL 11/24/21 11/25/21 11/25/21 Range/Units 20:12 07:13 07:13 RBC 3.90 L (4.30-5.90) m/uL Hgb 11.4 L (13.0-17.5) gm/dL Hct 36.3 L (39.0-53.0) % MCHC (31.0-37.0) g/dL Neutrophils # (1.3-7.7) k/uL Sodium 136 L (137-145) mmol/L Potassium 5.2 H (3.5-5.1) mmol/L Chloride 94 L (98-107) mmol/L BUN 97 H (9-20) mg/dL Creatinine 1.53 H (0.66-1.25) mg/dL Glucose (74-99) mg/dL POC Glucose (mg/dL) 116 H (70-110) mg/dL Calcium 7.8 L (8.4-10.2) mg/dL
--- NOTE | 2021-11-25 11:10 | P.NPCON ---
History of Present Illness - Reason for Consult acute renal failure - History of Present Illness Patient is a 65-year-old male with history of hepatitis C, COPD and history of polysubstance abuse. Patient is admitted to the hospital with complaints of shortness of breath. He denies any history of kidney diseases Patient did state that he has had trouble voiding previously. Patient had CT chest with IV contrast on 11/21/2021 which showed bilateral pleural effusions and atelectasis. Patient has been diuresed Blood pressure has been low with systolic in the 80s to 90s 24 hour urine output at 1200 mL Serum creatinine was 0.9 on initial admission and has increased to 1.5 today Ejection fraction at 20-25% Review of Systems As per HPI Past Medical History Past Medical History: COPD Additional Past Medical History / Comment(s): Hepatitis C, chronic back pain History of Any Multi-Drug Resistant Organisms: MRSA Date of last positivie culture/infection: 2016 MDRO Source:: butt Past Surgical History: Appendectomy Past Anesthesia/Blood Transfusion Reactions: No Reported Reaction Past Psychological History: No Psychological Hx Reported Smoking Status: Current every day smoker (1 PPD for 40 year) Past Alcohol Use History: None Reported Past Drug Use History: Marijuana, Prescription Drug Abuse - Past Family History Father Family Medical History: Hypertension Medications and Allergies Home Medications Medication Instructions Recorded Confirmed Type Albuterol Inhaler [Ventolin Hfa 2 puff INHALATION RT-Q6H PRN 11/20/21 11/20/21 History Inhaler] Buprenorphine HCl/Naloxone HCl 1 film SL DAILY 11/20/21 11/20/21 History [Suboxone 8 mg-2 mg Sl Film] Allergies Allergy/AdvReac Type Severity Reaction Status Date / Time No Known Allergies Allergy Verified 11/20/21 12:59 Physical Exam Vitals: Vital Signs Temp Pulse Pulse Pulse Pulse Resp BP 11/25/21 08:58 98.1 F 79 24 95/71 11/25/21 08:57 76 11/25/21 08:48 72 11/25/21 08:36 72 11/25/21 03:46 97.5 F L 67 18 11/25/21 00:00 97.4 F L 70 20 11/24/21 19:45 97.5 F L 69 20 11/24/21 16:48 80 11/24/21 16:35 80 11/24/21 15:34 97.9 F 61 22 11/24/21 13:29 73 11/24/21 12:20 84 11/24/21 12:06 84 11/24/21 11:55 73 71 11/24/21 11:15 73 20 11/24/21 11:13 BP Pulse Ox Pulse Ox Pulse Ox 11/25/21 08:58 93 L 11/25/21 08:57 11/25/21 08:48 11/25/21 08:36 11/25/21 03:46 96/70 94 L 11/25/21 00:00 100/51 94 L 11/24/21 19:45 93/62 100 11/24/21 16:48 11/24/21 16:35 11/24/21 15:34 98/63 96 11/24/21 13:29 11/24/21 12:20 11/24/21 12:06 11/24/21 11:55 95 86 L 11/24/21 11:15 94/61 95 11/24/21 11:13 86 L Intake and Output 11/24/21 11/25/21 11/25/21 22:59 06:59 14:59 Intake Total 700 Output Total 650 550 Balance -650 150 Intake: Oral 700 Output: Urine 650 550 Other: Voiding Method Toilet Toilet Toilet Urinal Urinal Urinal Patient is awake, comfortable, not in any acute distress Examination of the heart S1 and S2 Examination of the lungs bilateral breath sounds are heard Abdomen is soft nontender Examination lower extremity shows edema 1+ bilaterally [employer] exam is grossly intact Results - Lab Results Most recent lab results Calcium 7.8 mg/dL (8.4-10.2) L 11/25/21 07:13 Magnesium 2.0 mg/dL (1.6-2.3) 11/20/21 11:27 11/25/21 07:13 11/25/21 07:13 Assessment and Plan Assessment: 1. Acute kidney injury, ATN secondary to hypotension, contrast-induced acute kidney injury and cardiorenal syndrome. Currently nonoliguric. Check urine analysis and check ultrasound of the kidneys 2. Mild hyperkalemia associated with acute kidney injury 3. CHF acute on top of chronic systolic 4. Cardiomyopathy ejection fraction 20-25% 5. COPD exacerbation currently improving 7. Volume overload, improving Plan: Continue with current dose of Lasix Admitted to drain as blood pressure remains low Check UA Check ultrasound of the kidneys next Thank you for the consultation. We'll continue to follow the patient with you during his hospitalization
--- NOTE | 2021-11-25 11:14 | P.PN ---
Subjective Progress Note Date: 11/24/21 Principal diagnosis: Acute exacerbation COPD Acute exacerbation chronic systolic CHF Severe mitral regurgitation Pulmonary hypertension 65-year-old male patient, previous history of substance abuse, IVDA and the patient is currently on Suboxone along with known history of COPD and hepatitis C viral infection, came into the emergency department because of worsening shortness of breath. He is known to have COPD. He stated that he was having worsening shortness of breath and he was seen at the urgent care from 2 days ago and he was given treatment that improved his breathing and subsequently his condition got worse and he end up coming into the emergency department. The patient has a nonproductive cough. No chest pain. No angina. No pleurisy. No hemoptysis. No fever. No chills. No previous history of cardiac disease. No myocardial infarction. Is not using any maintenance respiratory medications. The patient has also noted some increased edema lower extremity is bilaterally. No palpitations. No altered mentation. His chest x-ray was consistent with COPD along with cardiomegaly and pulmonary vascular congestion. The patient was afebrile. He was quite short of breath and immediately was placed on a BiPAP at a pressure of 12/5 cm of water. He was given IV Lasix and he diuresed more than 2 L of urine output. The patient had blood work that showed normal electrolytes, normal renal function, white cell count 9.3 with hemoglobin 10.7 and a platelet count of 207. The patient's LFTs were essentially within normal limits. ProBNP level was 6740 and the initial troponin was at 0.105. Lactic acid level was at 1.7. EKG showed a normal sinus tachycardia without any acute ischemic changes. Coagulation profile was normal. COVID 19 testing was negative. 11/24/2021 Patient is seen and evaluated in the room at bedside. -- patient continues to be on DuoNeb nebulized treatment [id number] and a prednisone burst taper. --Cardiology-bradley patient is stable and has been adequately diuresed and the patient is currently on oral Lasix and Aldactone. He is on metoprolol XL 25 mg by mouth twice a day and he is also on his home medications including aspirin, Lipitor and he takes Suboxone Lab review shows consistently uptrending creatinine from 0.9 upon admission up to 1.4 this morning; patient does use diuretics at home with risk of worsening renal function; patient has been cleared for discharge by pulmonary service; we will monitor patient for another 24 hours and consult nephrology to evaluate and make recommendations as needed Objective - Vital Signs Vital signs: Vital Signs Temp 97.6 F 11/24/21 07:36 Pulse 92 11/24/21 12:20 Resp 20 11/24/21 11:15 BP 94/61 11/24/21 11:15 Pulse Ox 86 L 11/24/21 11:55 FiO2 40 11/23/21 16:55 Intake & Output 11/23/21 11/24/21 11/24/21 18:59 06:59 18:59 Intake Total 250 118 Output Total 373 600 Balance -373 -350 118 Intake: Oral 250 118 Output: Urine 373 600 Other: Voiding Method Toilet Urinal # Voids 2 - Exam Gen.mild respiratory distress currently on 2 L of oxygen by nasal cannula Head exam; no scleral icterus or corneal arcus. Mucous membranes were moist. Neck was supple and with jugular venous distension, thyromegaly, or carotid bruits. Lungs sounds are diminished bilaterally and the patient diffuse expiratory wheezes throughout the lung chand and prolongation of ventilation phase of breathing Heart sounds are tachycardic, distant heart sounds Abdominal exam revealed normal bowel sounds. The abdomen was soft, non-tender, and without masses, organomegaly, or appreciable enlargement of the abdominal aorta. Extremities; revealed easily palpable radial, femoral and pedal pulses. There was no cyanosis, clubbing or and there is +1 pitting edema lower extremity is bilaterally. Skin; unremarkable Neurologically, the patient is awake and alert and the patient does not have any focal neurological deficit. Cranial nerves are essentially intact. - Labs CBC & Chem 7: 11/25/21 07:13 11/25/21 07:13 Labs: Abnormal Lab Results - Last 24 Hours (Table) 11/23/21 11/23/21 11/24/21 Range/Units 16:51 23:25 06:26 RBC (4.30-5.90) m/uL Hgb (13.0-17.5) gm/dL Hct (39.0-53.0) % MCHC (31.0-37.0) g/dL Neutrophils # (1.3-7.7) k/uL Sodium (137-145) mmol/L Chloride (98-107) mmol/L BUN (9-20) mg/dL Creatinine (0.66-1.25) mg/dL Glucose (74-99) mg/dL POC Glucose (mg/dL) 161 H 143 H 141 H (70-110) mg/dL Calcium (8.4-10.2) mg/dL 11/24/21 11/24/21 11/24/21 Range/Units 09:46 09:46 11:25 RBC 3.81 L (4.30-5.90) m/uL Hgb 11.0 L (13.0-17.5) gm/dL Hct 36.0 L (39.0-53.0) % MCHC 30.7 L (31.0-37.0) g/dL Neutrophils # 8.0 H (1.3-7.7) k/uL Sodium 136 L (137-145) mmol/L Chloride 92 L (98-107) mmol/L BUN 81 H (9-20) mg/dL Creatinine 1.44 H (0.66-1.25) mg/dL Glucose 190 H (74-99) mg/dL POC Glucose (mg/dL) 267 H (70-110) mg/dL Calcium 7.9 L (8.4-10.2) mg/dL Assessment and Plan Assessment: 1. Acute exacerbation systolic CHF; patient diuresed well with IV Lasix; ec hocardiogram reveals EF of 20-25%; we will continue to monitor strict WEST's, daily weights, low salt and fluid restricted diet; cardiology on board and recommending to decrease Lasix down to 20 mg daily; patient is placed on low- dose Aldactone; continue with beta blockers - Unable to start ACEI/ARB/Arni secondary to hypotension -- Aspirin and statin 2. Acute exacerbation COPD; chest x-ray reveals no evidence of pneumonia or lung masses - Patient remains on bronchodilators and steroids and does show clinical improvement - CAT scan of the chest showed no evidence of any lung masses or mediastinal lymphadenopathy. The CAT scan shows small to moderate-sized right-sided pleural effusion 3. Acute hypoxic respiratory failure; patient was initially maintained on BiPAP but is being down to O2 per nasal cannula at 2 L; maintaining O2 saturation above 90% 4. Elevated troponin; possible demand ischemia related to hypoxic respiratory failure with CHF and COPD exacerbation; flat trend 5. Severe mitral regurgitation; outpatient follow-up 6. History of substance abuse; patient is currently on Suboxone DVT prophylaxis; SCDs/subcu heparin CODE STATUS; full code
--- NOTE | 2021-11-25 12:13 | US ---
EXAMINATION TYPE: US kidneys/renal and bladder DATE OF EXAM: 11/25/2021 COMPARISON: Right upper quadrant ultrasound 09/14/2013. CLINICAL HISTORY: christoph. Christoph limited exam due to patient unable to roll and hold breath. EXAM MEASUREMENTS: Right Kidney: 10.1 x 3.9 x 4.2 cm Left Kidney: 9.8 x 4.7 x 4.3 cm Right Kidney: Cyst within the upper pole 1.4 x 1.8 x 1.5 cm . Cortical medullary differentiation is maintained. No shadowing calculi. No contrast performing solid mass. No hydronephrosis. Left Kidney: Limited evaluation without evidence for hydronephrosis. No shadowing calculi. No definit alexia contour deforming solid mass. Cortical medullary differentiation is maintained. Bladder: anechoic Bilateral Jets seen: no IMPRESSION: 1. No evidence for obstructive uropathy or shadowing calculi. 2. Right renal cyst.
[2021-11-25 12:24] LABS: Glucose,Whole Blood 112 mg/dL (70-110)
--- NOTE | 2021-11-25 13:00 | P.PN ---
Subjective Progress Note Date: 11/25/21 65-year-old male patient, previous history of substance abuse, IVDA and the patient is currently on Suboxone along with known history of COPD and hepatitis C viral infection, came into the emergency department because of worsening shortness of breath. He is known to have COPD. He stated that he was having worsening shortness of breath and he was seen at the urgent care from 2 days ago and he was given treatment that improved his breathing and subsequently his condition got worse and he end up coming into the emergency department. The patient has a nonproductive cough. No chest pain. No angina. No pleurisy. No hemoptysis. No fever. No chills. No previous history of cardiac disease. No myocardial infarction. Is not using any maintenance respiratory medications. The patient has also noted some increased edema lower extremity is bilaterally. No palpitations. No altered mentation. His chest x-ray was consistent with COPD along with cardiomegaly and pulmonary vascular congestion. The patient was afebrile. He was quite short of breath and immediately was placed on a BiPAP at a pressure of 12/5 cm of water. He was given IV Lasix and he diuresed more than 2 L of urine output. The patient had blood work that showed normal electrolytes, normal renal function, white cell count 9.3 with hemoglobin 10.7 and a platelet count of 207. The patient's LFTs were essentially within normal limits. ProBNP level was 6740 and the initial troponin was at 0.105. Lactic acid level was at 1.7. EKG showed a normal sinus tachycardia without any acute ischemic changes. Coagulation profile was normal. COVID 19 testing was negative. 11/21 2021, the patient is currently in the intensive care unit and the patient is being seen for a follow-up. The patient is less short of breath compared to yesterday. He is still bronchospastic and wheezy although less compared to yesterday. He continues to have a hoarse voice. CAT scan of the chest was completed today and it showed small to moderate-sized right-sided pleural effusion. Minimal left-sided pleural effusion. There was also compressive atelectasis adjacent to the pleural effusion within the dependent lungs. Nonenlarged mediastinal lymph nodes and AND no pulmonary lesions. The patient did have hepatic cysts. The patient is being treated with a combination of DuoNeb nebulized treatments around the clock and the patient is also on IV Solu- Medrol 60 mg every 6 hours. The patient is also being diuresis with Lasix 40 mg IV every 12 hours. Is producing adequate urine output and the patient's fluid balance is -3.5 L over the past 24 hours. The white cell count is at 6.8 and platelet count of 157. BUN is a 32 with a creatinine of 1.07. Serum bicarbonate 28. Troponins are 0.09 and 0.07 respectively 2. COVID 19 testing is negative. 11/22/2021, the patient is being seen for a follow-up. He is known to have COPD and advanced cardiomyopathy and the echocardiogram showed an ejection fraction of 20-25% along with severe mitral regurgitation, pulmonary artery pressure of 37. He also underwent a CAT scan of the chest that showed COPD and a small to moderate-sized right-sided pleural effusion. The patient continues to diurese IV Lasix. Overall fluid balance is -2.4 L over the past 24 hours. He is currently down to 2 L of oxygen by nasal cannula. Doing well. Less short of breath. Able to speak longer sentences. Remains on DuoNeb nebulized treatment [id number]. Remains on IV Solu-Medrol. Still congested. No angina. No palpitations. He is on IV Lasix will be switched to oral Lasix. Overnight, he had some difficulties with tachycardia and he was given and subsequently taken off Cardizem drip and this was done by cardiology. He was started on metoprolol XL 25 mg by mouth twice a day for rate control. 11/23/2021, associated patient for follow-up. The patient is doing well in no specific complaints. He got transferred out of the intensive care unit yesterday. His oxygen level is improved and the patient's been on oxygen at 2 L per minute nasal cannula. He remains on IV Solu-Medrol. Is on DuoNeb neb last treatment [id number]. He is also on Lasix and this has been switched to 20 mg on a daily basis. I'm going to discontinue also the IV Solu-Medrol and put the patient prednisone burst taper. The patient isdoing well and he reports improvement in her respiratory status.meanwhile, the blood work from today shows a creatinine 1.3 with a 71 and the sodium level of 138. 11/24/2021, the patient is being seen for a follow-up. Doing well and the patient has no specific complaints. The patient is resting comfortably in bed. He was transferred out of the intensive care unit and the patient continues to be on DuoNeb nebulized treatment [id number] and a prednisone burst taper. His cardiac condition is also stable at the patient has been adequately diuresed and the patient is currently on oral Lasix and Aldactone. He is ambulating. He is on metoprolol XL 25 mg by mouth twice a day and he is also on his home medications including aspirin, Lipitor and he takes Suboxone 11/25/2021, patient has no complaints. The discharge was held with the patient became prerenal while being on diuretics and the patient is currently getting a BUN of 97 with a creatinine of 1.5. Note that the patient was taken off the IV Lasix and the patient's currently on 20 mg of Lasix orally. No nausea. No vomiting. No chest pain. Limited cough and congestion and the patient is overall stable. Home O2 has also been arranged for this patient. No syncope. White cell count of 10.4 with a hemoglobin of 11.4. Potassium is at 5.2. Objective - Vital Signs Vital signs: Vital Signs Temp 98.1 F 11/25/21 08:58 Pulse 76 11/25/21 12:34 Resp 24 11/25/21 08:58 BP 95/71 11/25/21 08:58 Pulse Ox 93 L 11/25/21 08:58 FiO2 40 11/23/21 16:55 Intake & Output 11/24/21 11/25/21 11/25/21 18:59 06:59 18:59 Intake Total 118 700 Output Total 650 550 Balance -532 150 Intake: Oral 118 700 Output: Urine 650 550 Other: Voiding Method Toilet Toilet Toilet Urinal Urinal Urinal - Exam Gen. appearance the patient is in mild respiratory distress currently on 2 L of oxygen by nasal cannula and he also has a hoarse voice Head exam was generally normal. There was no scleral icterus or corneal arcus. Mucous membranes were moist. Neck was supple and with jugular venous distension, thyromegaly, or carotid bru its. Carotids were easily palpable bilaterally. There was no adenopathy. Lungs sounds are diminished bilaterally and the patient diffuse expiratory wheezes throughout the lung chand and prolongation of ventilation phase of breathing Heart sounds are tachycardic, distant heart sounds,Cardiac exam revealed the PMI to be normally situated and sized. The rhythm was regular and no extrasystoles were noted during several minutes of auscultation. The first and second heart sounds were normal and physiologic splitting of the second heart sound was noted. There were no murmurs, rubs, clicks, or gallops. Abdominal exam revealed normal bowel sounds. The abdomen was soft, non-tender, and without masses, organomegaly, or appreciable enlargement of the abdominal aorta. Examination of the extremities revealed easily palpable radial, femoral and pedal pulses. There was no cyanosis, clubbing or and there is +1 pitting edema lower extremity is bilaterally. Examination of the skin revealed no evidence of significant rashes, suspicious appearing nevi or other concerning lesions. Neurologically, the patient is awake and alert and the patient does not have any focal neurological deficit. Cranial nerves are essentially intact. - Labs CBC & Chem 7: 11/25/21 07:13 11/25/21 07:13 Labs: Abnormal Lab Results - Last 24 Hours (Table) 11/24/21 11/25/21 11/25/21 Range/Units 20:12 07:13 07:13 RBC 3.90 L (4.30-5.90) m/uL Hgb 11.4 L (13.0-17.5) gm/dL Hct 36.3 L (39.0-53.0) % Sodium 136 L (137-145) mmol/L Potassium 5.2 H (3.5-5.1) mmol/L Chloride 94 L (98-107) mmol/L BUN 97 H (9-20) mg/dL Creatinine 1.53 H (0.66-1.25) mg/dL POC Glucose (mg/dL) 116 H (70-110) mg/dL Calcium 7.8 L (8.4-10.2) mg/dL 11/25/21 Range/Units 12:19 RBC (4.30-5.90) m/uL Hgb (13.0-17.5) gm/dL Hct (39.0-53.0) % Sodium (137-145) mmol/L Potassium (3.5-5.1) mmol/L Chloride (98-107) mmol/L BUN (9-20) mg/dL Creatinine (0.66-1.25) mg/dL POC Glucose (mg/dL) 112 H (70-110) mg/dL Calcium (8.4-10.2) mg/dL Assessment and Plan Plan: Acute exacerbation of COPD, improving and the patient has no evidence of pneumonia or lung masses , improving on a combination of bronchodilators and s teroids, clinically improving, remains on bronchodilators and systemic steroids, clinically improving Acute exacerbation of chronic CHF with evidence of pulmonary vessel congestion, and elevation in the pro BNP level, given Lasix in the emergency department with excellent diuresis and subsequent further improvement, and the patient remains negative fluid balance, and echocardiac and showed systolic heart failure with an ejection fraction of 20-25% Severe mitral regurgitation Mild pulmonary hypertension Acute kidney injury, related to diuretics and prerenal factors Chronic systolic heart failure with an ejection fraction of 20-25% Acute hypoxic respiratory failure, initially on a BiPAP at a pressure of 12/5 and currently the patient is off BiPAP and the patient is currently on 2 L of nasal cannula Mild elevation of the troponins, consider acute non-ST elevation myocardial infarction Sinus tachycardia, improving Chronic smoker Hepatitis C viral infection Remote history of IVDA Remote history of substance abuse with prescription narcotics and the patient is currently on Suboxone Chronic smoker hoarseness with a negative CAT scan of the chest History of shingles Plan the patient is clinically improving No new complaints from the patient's standpoint Arranged home O2 Monitor renal function Patient is currently on Lasix 40 mg by mouth daily Prednisone burst taper to be continued Smoking cessation counseling CAT scan of the chest showed no evidence of any lung masses or mediastinal lymphadenopathy. The CAT scan shows small to moderate-sized right-sided pleural effusion Echocardiogram was noted Cardiology consultation is appreciated Heparin subcu for DVT prophylaxis will continue to follow Possible discharge within next 24-48 hours based on his overall progress. Renal function being monitored for now.
--- NOTE | 2021-11-25 16:30 | P.PN ---
Subjective Progress Note Date: 11/25/21 Principal diagnosis: Acute exacerbation COPD Acute exacerbation chronic systolic CHF Severe mitral regurgitation Pulmonary hypertension 65-year-old male patient, previous history of substance abuse, IVDA and the patient is currently on Suboxone along with known history of COPD and hepatitis C viral infection, came into the emergency department because of worsening shortness of breath. He is known to have COPD. He stated that he was having worsening shortness of breath and he was seen at the urgent care from 2 days ago and he was given treatment that improved his breathing and subsequently his condition got worse and he end up coming into the emergency department. The patient has a nonproductive cough. No chest pain. No angina. No pleurisy. No hemoptysis. No fever. No chills. No previous history of cardiac disease. No myocardial infarction. Is not using any maintenance respiratory medications. The patient has also noted some increased edema lower extremity is bilaterally. No palpitations. No altered mentation. His chest x-ray was consistent with COPD along with cardiomegaly and pulmonary vascular congestion. The patient was afebrile. He was quite short of breath and immediately was placed on a BiPAP at a pressure of 12/5 cm of water. He was given IV Lasix and he diuresed more than 2 L of urine output. The patient had blood work that showed normal electrolytes, normal renal function, white cell count 9.3 with hemoglobin 10.7 and a platelet count of 207. The patient's LFTs were essentially within normal limits. ProBNP level was 6740 and the initial troponin was at 0.105. Lactic acid level was at 1.7. EKG showed a normal sinus tachycardia without any acute ischemic changes. Coagulation profile was normal. COVID 19 testing was negative. 11/24/2021 Patient is seen and evaluated in the room at bedside. -- patient continues to be on DuoNeb nebulized treatment [id number] and a prednisone burst taper. --Cardiology-bradley patient is stable and has been adequately diuresed and the patient is currently on oral Lasix and Aldactone. He is on metoprolol XL 25 mg by mouth twice a day and he is also on his home medications including aspirin, Lipitor and he takes Suboxone Lab review shows consistently uptrending creatinine from 0.9 upon admission up to 1.4 this morning; patient does use diuretics at home with risk of worsening renal function; patient has been cleared for discharge by pulmonary service; we will monitor patient for another 24 hours and consult nephrology to evaluate and make recommendations as needed 11/25/2021 Patient is seen and evaluated resting in bed; eager to be discharged home Vital signs are reviewed and remained stable -- The discharge was held with the patient became prerenal while being on diuretics and the patient is currently getting a BUN of 97 with a creatinine of 1.5. Note that the patient was taken off the IV Lasix and the patient's currently on 20 mg of Lasix orally. No nausea. No vomiting. No chest pain. Limited cough and congestion and the patient is overall stable. Home O2 has also been arranged for this patient. No syncope. White cell count of 10.4 with a hemoglobin of 11.4. Potassium is at 5.2. -- Patient has been evaluated by nephrology and recommending to continue with current dose of Lasix; liver ultrasound is ordered; continue to monitor renal function and electrolytes, strict WEST; avoid nephrotoxins and hypotension - Further recommendations after renal ultrasound was completed Objective - Vital Signs Vital signs: Vital Signs Temp 98.1 F 11/25/21 08:58 Pulse 79 11/25/21 08:58 Resp 24 11/25/21 08:58 BP 95/71 11/25/21 08:58 Pulse Ox 93 L 11/25/21 08:58 FiO2 40 11/23/21 16:55 Intake & Output 11/24/21 11/25/21 11/25/21 18:59 06:59 18:59 Intake Total 118 700 Output Total 650 550 Balance -532 150 Intake: Oral 118 700 Output: Urine 650 550 Other: Voiding Method Toilet Toilet Toilet Urinal Urinal Urinal - Exam Gen.mild respiratory distress currently on 2 L of oxygen by nasal cannula Head exam; no scleral icterus or corneal arcus. Mucous membranes were moist. Neck was supple and with jugular venous distension, thyromegaly, or carotid bruits. Lungs sounds are diminished bilaterally and the patient diffuse expiratory wheezes throughout the lung chand and prolongation of ventilation phase of breathing Heart sounds are tachycardic, distant heart sounds Abdominal exam revealed normal bowel sounds. The abdomen was soft, non-tender, and without masses, organomegaly, or appreciable enlargement of the abdominal aorta. Extremities; revealed easily palpable radial, femoral and pedal pulses. There was no cyanosis, clubbing or and there is +1 pitting edema lower extremity is bilaterally. Skin; unremarkable Neurologically, the patient is awake and alert and the patient does not have any focal neurological deficit. Cranial nerves are essentially intact. - Labs CBC & Chem 7: 11/25/21 07:13 11/25/21 07:13 Labs: Abnormal Lab Results - Last 24 Hours (Table) 11/24/21 11/24/21 11/25/21 Range/Units 11:25 20:12 07:13 RBC 3.90 L (4.30-5.90) m/uL Hgb 11.4 L (13.0-17.5) gm/dL Hct 36.3 L (39.0-53.0) % Sodium (137-145) mmol/L Potassium (3.5-5.1) mmol/L Chloride (98-107) mmol/L BUN (9-20) mg/dL Creatinine (0.66-1.25) mg/dL POC Glucose (mg/dL) 267 H 116 H (70-110) mg/dL Calcium (8.4-10.2) mg/dL 11/25/21 Range/Units 07:13 RBC (4.30-5.90) m/uL Hgb (13.0-17.5) gm/dL Hct (39.0-53.0) % Sodium 136 L (137-145) mmol/L Potassium 5.2 H (3.5-5.1) mmol/L Chloride 94 L (98-107) mmol/L BUN 97 H (9-20) mg/dL Creatinine 1.53 H (0.66-1.25) mg/dL POC Glucose (mg/dL) (70-110) mg/dL Calcium 7.8 L (8.4-10.2) mg/dL Assessment and Plan Assessment: 1. Acute exacerbation systolic CHF; patient diuresed well with IV Lasix; echocardiogram reveals EF of 20-25%; we will continue to monitor strict WEST's, daily weights, low salt and fluid restricted diet; cardiology on board and recommending to decrease Lasix down to 20 mg daily; patient is placed on low- dose Aldactone; continue with beta blockers - Unable to start ACEI/ARB/Arni secondary to hypotension -- Aspirin and statin 2. Acute exacerbation COPD; chest x-ray reveals no evidence of pneumonia or jarvis g masses - Patient remains on bronchodilators and steroids and does show clinical improvement - CAT scan of the chest showed no evidence of any lung masses or mediastinal lymphadenopathy. The CAT scan shows small to moderate-sized right-sided pleural effusion 3. Acute hypoxic respiratory failure; patient was initially maintained on BiPAP but is being down to O2 per nasal cannula at 2 L; maintaining O2 saturation above 90% 4. Elevated troponin; possible demand ischemia related to hypoxic respiratory failure with CHF and COPD exacerbation; flat trend 5. Severe mitral regurgitation; outpatient follow-up 6. History of substance abuse; patient is currently on Suboxone DVT prophylaxis; SCDs/subcu heparin CODE STATUS; full code
[2021-11-25 17:00] LABS: Glucose,Whole Blood 120 mg/dL (70-110)
[2021-11-25 18:11] LABS: Appearance,Urine Clear (Clear); Bilirubin,Urine Negative (Negative); Blood,Urine Negative (Negative); Color,Urine Yellow; Glucose,Urine (UA) Negative (Negative); Ketones,Urine Negative (Negative); Leukocyte Esterase,Urine Negative (Negative); Nitrite,Urine Negative (Negative); PH, Urine 5.5 (5.0-8.0); Protein,Urine Negative (Negative); Specific Gravity,Urine 1.017 (1.001-1.035)
[2021-11-25 23:19] LABS: Glucose,Whole Blood 142 mg/dL (70-110)
[2021-11-26 06:05] LABS: Glucose,Whole Blood 102 mg/dL (70-110)
[2021-11-26] MEDS: INSULIN ASPART (NovoLOG) 100 UNIT/ML VIAL SQ SCH ×4 (06:12→23:51)
[2021-11-26] MEDS: PANTOPRAZOLE 40 MG TABLET PO SCH (06:12)
[2021-11-26] MEDS: BUDESONIDE 1 MG/2 ML NEBU INHALATION SCH ×2 (07:50→19:52)
[2021-11-26] MEDS: FORMOTEROL FUMARATE 20 MCG/2 ML NEBU INHALATION SCH ×2 (07:50→19:52)
[2021-11-26] MEDS: IPRATROPIUM-ALBUTEROL 3 ML NEB INHALATION SCH ×4 (07:50→19:52)
[2021-11-26 09:28] LABS: Calcium 7.7 mg/dL (8.4-10.2); Potassium 5.3 mmol/L (3.5-5.1)
[2021-11-26] MEDS: METOPROLOL SUCCINATE (ER) 25 MG TAB.ER.24H PO SCH ×2 (09:40→22:02)
[2021-11-26] MEDS: HEPARIN SODIUM,PORCINE/PF 5,000 UNIT/0.5 ML SYRINGE SQ SCH ×2 (09:40→22:02)
[2021-11-26] MEDS: FUROSEMIDE 20 MG TAB PO SCH (09:40)
[2021-11-26] MEDS: ATORVASTATIN 20 MG TAB PO SCH (09:40)
[2021-11-26] MEDS: ALPRAZolam 0.25 MG TAB PO PRN ×2 (09:40→17:21)
[2021-11-26] MEDS: LACTULOSE 20 GM/30 ML CUP PO SCH (09:40)
[2021-11-26] MEDS: SPIRONOLACTONE 25 MG TAB PO SCH (09:40)
[2021-11-26] MEDS: predniSONE 20 MG TAB PO SCH (09:40)
[2021-11-26] MEDS: ASPIRIN 81 MG PO SCH (09:43)
--- NOTE | 2021-11-26 10:17 | P.PN ---
Subjective Patient is seen for follow-up for acute kidney injury He is 65-year-old male with history of hepatitis C, COPD and history of polysubstance abuse. Patient is admitted to the hospital with complaints of shortness of breath. He denies any history of kidney diseases Patient did state that he has had trouble voiding previously. Patient had CT chest with IV contrast on 11/21/2021 which showed bilateral pleural effusions and atelectasis. Patient has been diuresed Blood pressure has been low with systolic in the 80s to 90s 24 hour urine output at 1200 mL Patient is seen for follow-up today. No complaints Serum creatinine down to 1.4 today Objective - Vital Signs Vital signs: Vital Signs Temp 97.5 F L 11/26/21 09:43 Pulse 93 11/26/21 09:43 Resp 20 11/26/21 09:43 BP 100/71 11/26/21 09:43 Pulse Ox 96 11/26/21 09:43 FiO2 40 11/23/21 16:55 Intake & Output 11/25/21 11/26/21 11/26/21 18:59 06:59 18:59 Intake Total 818 240 Output Total 1000 Balance -182 240 Intake: Oral 818 240 Output: Urine 1000 Other: Voiding Method Toilet Toilet Urinal Urinal # Voids 2 2 - Exam Patient is awake, comfortable, not in any acute distress Examination of the heart S1 and S2 Examination of the lungs bilateral breath sounds are heard Abdomen is soft nontender Examination of lower extremity shows no significant edema [employer]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 - Labs CBC & Chem 7: 11/25/21 07:13 11/26/21 08:56 Labs: Abnormal Lab Results - Last 24 Hours (Table) 11/25/21 11/25/21 11/25/21 Range/Units 12:19 16:59 23:17 Sodium (137-145) mmol/L Potassium (3.5-5.1) mmol/L Chloride (98-107) mmol/L BUN (9-20) mg/dL Creatinine (0.66-1.25) mg/dL Glucose (74-99) mg/dL POC Glucose (mg/dL) 112 H 120 H 142 H (70-110) mg/dL Calcium (8.4-10.2) mg/dL 11/26/21 Range/Units 08:56 Sodium 135 L (137-145) mmol/L Potassium 5.3 H (3.5-5.1) mmol/L Chloride 93 L (98-107) mmol/L BUN 95 H (9-20) mg/dL Creatinine 1.41 H (0.66-1.25) mg/dL Glucose 123 H (74-99) mg/dL POC Glucose (mg/dL) (70-110) mg/dL Calcium 7.7 L (8.4-10.2) mg/dL Assessment and Plan Assessment: 1. Acute kidney injury, ATN secondary to hypotension, contrast-induced acute kidney injury and cardiorenal syndrome. Currently nonoliguric. UA is benign and ultrasound shows no evidence of obstructive uropathy. 2. Mild hyperkalemia associated with acute kidney injury 3. CHF acute on top of chronic systolic 4. Cardiomyopathy ejection fraction 20-25% 5. COPD exacerbation currently improving 7. Volume overload, improving Plan: Continue with current dose of Lasix Avoid hypotension Decrease metoprolol
[2021-11-26 11:56] LABS: Glucose,Whole Blood 71 mg/dL (70-110)
[2021-11-26] MEDS ORDERED: LACTULOSE 20 GM/30 ML CUP PO PRN (12:42)
[2021-11-26] MEDS: BUPRENORPHINE-NALOX 8-2 MG TAB 1 EACH TAB.SUBL SL SCH (12:58)
--- NOTE | 2021-11-26 13:11 | P.PN ---
Subjective Progress Note Date: 11/26/21 65-year-old male patient, previous history of substance abuse, IVDA and the patient is currently on Suboxone along with known history of COPD and hepatitis C viral infection, came into the emergency department because of worsening shortness of breath. He is known to have COPD. He stated that he was having worsening shortness of breath and he was seen at the urgent care from 2 days ago and he was given treatment that improved his breathing and subsequently his condition got worse and he end up coming into the emergency department. The patient has a nonproductive cough. No chest pain. No angina. No pleurisy. No hemoptysis. No fever. No chills. No previous history of cardiac disease. No myocardial infarction. Is not using any maintenance respiratory medications. The patient has also noted some increased edema lower extremity is bilaterally. No palpitations. No altered mentation. His chest x-ray was consistent with COPD along with cardiomegaly and pulmonary vascular congestion. The patient was afebrile. He was quite short of breath and immediately was placed on a BiPAP at a pressure of 12/5 cm of water. He was given IV Lasix and he diuresed more than 2 L of urine output. The patient had blood work that showed normal electrolytes, normal renal function, white cell count 9.3 with hemoglobin 10.7 and a platelet count of 207. The patient's LFTs were essentially within normal limits. ProBNP level was 6740 and the initial troponin was at 0.105. Lactic acid level was at 1.7. EKG showed a normal sinus tachycardia without any acute ischemic changes. Coagulation profile was normal. COVID 19 testing was negative. 11/21 2021, the patient is currently in the intensive care unit and the patient is being seen for a follow-up. The patient is less short of breath compared to yesterday. He is still bronchospastic and wheezy although less compared to yesterday. He continues to have a hoarse voice. CAT scan of the chest was completed today and it showed small to moderate-sized right-sided pleural effusion. Minimal left-sided pleural effusion. There was also compressive atelectasis adjacent to the pleural effusion within the dependent lungs. Nonenlarged mediastinal lymph nodes and AND no pulmonary lesions. The patient did have hepatic cysts. The patient is being treated with a combination of DuoNeb nebulized treatments around the clock and the patient is also on IV Solu- Medrol 60 mg every 6 hours. The patient is also being diuresis with Lasix 40 mg IV every 12 hours. Is producing adequate urine output and the patient's fluid balance is -3.5 L over the past 24 hours. The white cell count is at 6.8 and platelet count of 157. BUN is a 32 with a creatinine of 1.07. Serum bicarbonate 28. Troponins are 0.09 and 0.07 respectively 2. COVID 19 testing is negative. 11/22/2021, the patient is being seen for a follow-up. He is known to have COPD and advanced cardiomyopathy and the echocardiogram showed an ejection fraction of 20-25% along with severe mitral regurgitation, pulmonary artery pressure of 37. He also underwent a CAT scan of the chest that showed COPD and a small to moderate-sized right-sided pleural effusion. The patient continues to diurese IV Lasix. Overall fluid balance is -2.4 L over the past 24 hours. He is currently down to 2 L of oxygen by nasal cannula. Doing well. Less short of breath. Able to speak longer sentences. Remains on DuoNeb nebulized treatment [id number]. Remains on IV Solu-Medrol. Still congested. No angina. No palpitations. He is on IV Lasix will be switched to oral Lasix. Overnight, he had some difficulties with tachycardia and he was given and subsequently taken off Cardizem drip and this was done by cardiology. He was started on metoprolol XL 25 mg by mouth twice a day for rate control. 11/23/2021, associated patient for follow-up. The patient is doing well in no specific complaints. He got transferred out of the intensive care unit yesterday. His oxygen level is improved and the patient's been on oxygen at 2 L per minute nasal cannula. He remains on IV Solu-Medrol. Is on DuoNeb neb last treatment [id number]. He is also on Lasix and this has been switched to 20 mg on a daily basis. I'm going to discontinue also the IV Solu-Medrol and put the patient prednisone burst taper. The patient isdoing well and he reports improvement in her respiratory status.meanwhile, the blood work from today shows a creatinine 1.3 with a 71 and the sodium level of 138. 11/24/2021, the patient is being seen for a follow-up. Doing well and the patient has no specific complaints. The patient is resting comfortably in bed. He was transferred out of the intensive care unit and the patient continues to be on DuoNeb nebulized treatment [id number] and a prednisone burst taper. His cardiac condition is also stable at the patient has been adequately diuresed and the patient is currently on oral Lasix and Aldactone. He is ambulating. He is on metoprolol XL 25 mg by mouth twice a day and he is also on his home medications including aspirin, Lipitor and he takes Suboxone 11/25/2021, patient has no complaints. The discharge was held with the patient became prerenal while being on diuretics and the patient is currently getting a BUN of 97 with a creatinine of 1.5. Note that the patient was taken off the IV Lasix and the patient's currently on 20 mg of Lasix orally. No nausea. No vomiting. No chest pain. Limited cough and congestion and the patient is overall stable. Home O2 has also been arranged for this patient. No syncope. White cell count of 10.4 with a hemoglobin of 11.4. Potassium is at 5.2. 11/26/2021, the patient is resting comfortably in bed. No new complaints. Creatinine is stable for now. He is on prednisone burst taper along with DuoNeb nebulized treatments around the clock. He is also on oral Lasix. The blood work shows a potassium level of 5.3 with a BUN of 95 and a creatinine of 1.4. He is weak and he is able to move around. Objective - Vital Signs Vital signs: Vital Signs Temp 97.5 F L 11/26/21 09:43 Pulse 93 11/26/21 09:43 Resp 20 11/26/21 09:43 BP 100/71 11/26/21 09:43 Pulse Ox 96 11/26/21 09:43 FiO2 40 11/23/21 16:55 Intake & Output 11/25/21 11/26/21 11/26/21 18:59 06:59 18:59 Intake Total 818 240 Output Total 1000 Balance -182 240 Intake: Oral 818 240 Output: Urine 1000 Other: Voiding Method Toilet Toilet Urinal Urinal # Voids 2 2 - Exam Gen. appearance the patient is in mild respiratory distress currently on 2 L of oxygen by nasal cannula and he also has a hoarse voice Head exam was generally normal. There was no scleral icterus or corneal arcus. Mucous membranes were moist. Neck was supple and with jugular venous distension, thyromegaly, or carotid bruits. Carotids were easily palpable bilaterally. There was no adenopathy. Lungs sounds are diminished bilaterally and the patient diffuse expiratory wheezes throughout the lung chand and prolongation of ventilation phase of breathing Heart sounds are tachycardic, distant heart sounds,Cardiac exam revealed the PMI to be normally situated and sized. The rhythm was regular and no extrasystoles were noted during several minutes of auscultation. The first and second heart sounds were normal and physiologic splitting of the second heart sound was noted. There were no murmurs, rubs, clicks, or gallops. Abdominal exam revealed normal bowel sounds. The abdomen was soft, non-tender, and without masses, organomegaly, or appreciable enlargement of the abdominal aorta. Examination of the extremities revealed easily palpable radial, femoral and pedal pulses. There was no cyanosis, clubbing or and there is +1 pitting edema lower extremity is bilaterally. Examination of the skin revealed no evidence of significant rashes, suspicious appearing nevi or other concerning lesions. Neurologically, the patient is awake and alert and the patient does not have any focal neurological deficit. Cranial nerves are essentially intact. - Labs CBC & Chem 7: 11/25/21 07:13 11/26/21 08:56 Labs: Abnormal Lab Results - Last 24 Hours (Table) 11/25/21 11/25/21 11/25/21 Range/Units 12:19 16:59 23:17 Sodium (137-145) mmol/L Potassium (3.5-5.1) mmol/L Chloride (98-107) mmol/L BUN (9-20) mg/dL Creatinine (0.66-1.25) mg/dL Glucose (74-99) mg/dL POC Glucose (mg/dL) 112 H 120 H 142 H (70-110) mg/dL Calcium (8.4-10.2) mg/dL 11/26/21 Range/Units 08:56 Sodium 135 L (137-145) mmol/L Potassium 5.3 H (3.5-5.1) mmol/L Chloride 93 L (98-107) mmol/L BUN 95 H (9-20) mg/dL Creatinine 1.41 H (0.66-1.25) mg/dL Glucose 123 H (74-99) mg/dL POC Glucose (mg/dL) (70-110) mg/dL Calcium 7.7 L (8.4-10.2) mg/dL Assessment and Plan Plan: Acute exacerbation of COPD, improving and the patient has no evidence of pneumonia or lung masses , improving on a combination of bronchodilators and steroids, clinically improving, remains on bronchodilators and systemic steroids, clinically improving, the patient is clinically is stable. However is quite debilitated and weak. Acute exacerbation of chronic CHF with evidence of pulmonary vessel congestion, and elevation in the pro BNP level, given Lasix in the emergency department with excellent diuresis and subsequent further improvement, and the patient remains negative fluid balance, and echocardiac and showed systolic heart failure with an ejection fraction of 20-25% Severe mitral regurgitation Mild pulmonary hypertension Acute kidney injury, related to diuretics and prerenal factors, currently on oral Lasix and the patient's creatinine is at 1.41. Chronic systolic heart failure with an ejection fraction of 20-25% Acute hypoxic respiratory failure, initially on a BiPAP at a pressure of 12/5 and currently the patient is off BiPAP and the patient is currently on 2 L of nasal cannula Mild elevation of the troponins, consider acute non-ST elevation myocardial infarction Sinus tachycardia, improving Chronic smoker Hepatitis C viral infection Remote history of IVDA Remote history of substance abuse with prescription narcotics and the patient is currently on Suboxone Chronic smoker hoarseness with a negative CAT scan of the chest History of shingles Plan The creatinine is stable at 1.41. the patient is clinically improving No new complaints from the patient's standpoint Arranged home O2 Monitor renal function Patient is currently on Lasix 40 mg by mouth daily Prednisone burst taper to be continued Smoking cessation counseling CAT scan of the chest showed no evidence of any lung masses or mediastinal lymphadenopathy. The CAT scan shows small to moderate-sized right-sided pleural effusion Echocardiogram was noted Cardiology consultation is appreciated Heparin subcu for DVT prophylaxis will continue to follow Possible discharge within next 24-48 hours based on his overall progress. Renal function being monitored for now.
--- NOTE | 2021-11-26 13:57 | P.PN ---
Subjective 65-year-old male patient, previous history of substance abuse, IVDA and the patient is currently on Suboxone along with known history of COPD and hepatitis C viral infection, came into the emergency department because of worsening shortness of breath. He is known to have COPD. He stated that he was having worsening shortness of breath and he was seen at the urgent care from 2 days ago and he was given treatment that improved his breathing and subsequently his condition got worse and he end up coming into the emergency department. The patient has a nonproductive cough. No chest pain. No angina. No pleurisy. No hemoptysis. No fever. No chills. No previous history of cardiac disease. No myocardial infarction. Is not using any maintenance respiratory medications. The patient has also noted some increased edema lower extremity is bilaterally. No palpitations. No altered mentation. His chest x-ray was consistent with COPD along with cardiomegaly and pulmonary vascular congestion. The patient was afebrile. He was quite short of breath and immediately was placed on a BiPAP at a pressure of 12/5 cm of water. He was given IV Lasix and he diuresed more than 2 L of urine output. The patient had blood work that showed normal electrolytes, normal renal function, white cell count 9.3 with hemoglobin 10.7 and a platelet count of 207. The patient's LFTs were essentially within normal limits. ProBNP level was 6740 and the initial troponin was at 0.105. Lactic acid level was at 1.7. EKG showed a normal sinus tachycardia without any acute ischemic changes. Coagulation profile was normal. COVID 19 testing was negati ve. 11/24/2021 Patient is seen and evaluated in the room at bedside. -- patient continues to be on DuoNeb nebulized treatment [id number] and a prednisone burst taper. --Cardiology-bradley patient is stable and has been adequately diuresed and the patient is currently on oral Lasix and Aldactone. He is on metoprolol XL 25 mg by mouth twice a day and he is also on his home medications including aspirin, Lipitor and he takes Suboxone Lab review shows consistently uptrending creatinine from 0.9 upon admission up to 1.4 this morning; patient does use diuretics at home with risk of worsening renal function; patient has been cleared for discharge by pulmonary service; we will monitor patient for another 24 hours and consult nephrology to evaluate and make recommendations as needed 11/25/2021 Patient is seen and evaluated resting in bed; eager to be discharged home Vital signs are reviewed and remained stable -- The discharge was held with the patient became prerenal while being on diuretics and the patient is currently getting a BUN of 97 with a creatinine of 1.5. Note that the patient was taken off the IV Lasix and the patient's c urrently on 20 mg of Lasix orally. No nausea. No vomiting. No chest pain. Limited cough and congestion and the patient is overall stable. Home O2 has also been arranged for this patient. No syncope. White cell count of 10.4 with a hemoglobin of 11.4. Potassium is at 5.2. -- Patient has been evaluated by nephrology and recommending to continue with current dose of Lasix; liver ultrasound is ordered; continue to monitor renal function and electrolytes, strict WEST; avoid nephrotoxins and hypotension - Further recommendations after renal ultrasound was completed 11/26/2021 This is a pleasant 65 years old male who presents with acute COPD exacerbation and CHF exacerbation with ejection fraction 20-25%. Patient is been evaluated by pulmonary and cardiology service. And his breathing is improved and back close to his Baseline. Currently he is saturating 96% on 4 L blood pressure 10 0/71. Also he was started on aspirin 81 mg. Patient states currently he has no PCP but he was to see Dr. Arndt that he used to take Suboxone program but now he is buying it from the street. Patient was counseled to avoid substances addiction and risks and benefits are explained for him including but not limited to the risk of respiratory and cardiac depression and . Patient verbalized understanding. However patient developed acute kidney injury and mild hyperkalemia and his discharge was held today is also awake and asked to be discharged home. He denies chest pain or dyspnea. No other complaint. Creatinine is 1.4 today.potassium was still elevated at 5.3 . Objective - Vital Signs Vital signs: Vital Signs Temp 97.5 F L 11/26/21 09:43 Pulse 93 11/26/21 09:43 Resp 20 11/26/21 09:43 BP 100/71 11/26/21 09:43 Pulse Ox 96 11/26/21 09:43 FiO2 40 11/23/21 16:55 Intake & Output 11/25/21 11/26/2122 18:59 06:59 18:59 Intake Total 818 480 Output Total 1000 Balance -182 480 Intake: Oral 818 480 Output: Urine 1000 Other: Voiding Method Toilet Toilet Urinal Urinal # Voids 2 2 - Exam GENERAL: The patient is alert and oriented x3, not in any acute distress. Well developed, well nourished. HEENT: Pupils are round and equally reacting to light. EOMI. No scleral icterus. No conjunctival pallor. Normocephalic, atraumatic. No pharyngeal erythema. No thyromegaly. CARDIOVASCULAR: S1 and S2 present. No murmurs, rubs, or gallops. PULMONARY: Chest is clear to auscultation, no wheezing or crackles. ABDOMEN: Soft, nontender, nondistended, normoactive bowel sounds. No palpable organomegaly. MUSCULOSKELETAL: No joint swelling or deformity. EXTREMITIES: No cyanosis, clubbing, or pedal edema. NEUROLOGICAL: Gross neurological examination did not reveal any focal deficits. SKIN: No rashes. no petechiae. - Labs CBC & Chem 7: 11/25/21 07:13 11/26/21 08:56 Labs: Abnormal Lab Results - Last 24 Hours (Table) 11/25/21 11/25/21 11/26/21 Range/Units 16:59 23:17 08:56 Sodium 135 L (137-145) mmol/L Potassium 5.3 H (3.5-5.1) mmol/L Chloride 93 L (98-107) mmol/L BUN 95 H (9-20) mg/dL Creatinine 1.41 H (0.66-1.25) mg/dL Glucose 123 H (74-99) mg/dL POC Glucose (mg/dL) 120 H 142 H (70-110) mg/dL Calcium 7.7 L (8.4-10.2) mg/dL Assessment and Plan Assessment: 1. Acute exacerbation systolic CHF; patient diuresed well with IV Lasix; echocardiogram reveals EF of 20-25%; we will continue to monitor strict WEST's, daily weights, low salt and fluid restricted diet; cardiology on board and recommending to decrease Lasix down to 20 mg daily; patient is placed on low- dose Aldactone; continue with beta blockers - Unable to start ACEI/ARB/Arni secondary to hypotension - Aspirin and statin - 2. Acute exacerbation COPD; chest x-ray reveals no evidence of pneumonia or lung masses - Patient remains on bronchodilators and steroids and does show clinical improvement - CAT scan of the chest showed no evidence of any lung masses or mediastinal lymphadenopathy. The CAT scan shows small to moderate-sized right-sided pleural effusion 3. Acute kidney injury secondary to hypotension, lower dose of metoprolol at 12.5 mg and keep monitoring her blood pressure 4. Elevated troponin; possible demand ischemia related to hypoxic respiratory failure with CHF and COPD exacerbation; flat trend 5. History of Severe mitral regurgitation; outpatient follow-up 6. History of substance abuse; patient is currently on Suboxone DVT prophylaxis; SCDs/subcu heparin CODE STATUS; full code
[2021-11-26 16:45] LABS: Glucose,Whole Blood 94 mg/dL (70-110)
[2021-11-26 23:48] LABS: Glucose,Whole Blood 220 mg/dL (70-110)
[2021-11-27] MEDS: ALPRAZolam 0.25 MG TAB PO PRN (03:58)
[2021-11-27 06:14] LABS: Glucose,Whole Blood 144 mg/dL (70-110)
[2021-11-27] MEDS: INSULIN ASPART (NovoLOG) 100 UNIT/ML VIAL SQ SCH ×3 (06:20→21:09)
[2021-11-27] MEDS: PANTOPRAZOLE 40 MG TABLET PO SCH (06:21)
[2021-11-27] MEDS: BUDESONIDE 1 MG/2 ML NEBU INHALATION SCH ×2 (08:39→19:41)
[2021-11-27] MEDS: FORMOTEROL FUMARATE 20 MCG/2 ML NEBU INHALATION SCH ×2 (08:39→19:54)
[2021-11-27] MEDS: IPRATROPIUM-ALBUTEROL 3 ML NEB INHALATION SCH ×4 (08:39→19:40)
[2021-11-27] MEDS: FUROSEMIDE 20 MG TAB PO SCH (09:51)
[2021-11-27] MEDS: ASPIRIN 81 MG PO SCH (09:51)
[2021-11-27] MEDS: SPIRONOLACTONE 25 MG TAB PO SCH (09:52)
[2021-11-27] MEDS: METOPROLOL SUCCINATE (ER) 25 MG TAB.ER.24H PO SCH ×2 (09:52→21:11)
[2021-11-27] MEDS: predniSONE 20 MG TAB PO SCH (09:52)
[2021-11-27] MEDS: HEPARIN SODIUM,PORCINE/PF 5,000 UNIT/0.5 ML SYRINGE SQ SCH ×2 (09:52→21:11)
[2021-11-27 09:58] LABS: Calcium 8.4 mg/dL (8.4-10.2); Potassium 5.4 mmol/L (3.5-5.1)
[2021-11-27] MEDS: ATORVASTATIN 20 MG TAB PO SCH (10:29)
[2021-11-27 12:03] LABS: Glucose,Whole Blood 162 mg/dL (70-110)
[2021-11-27] MEDS: BUPRENORPHINE-NALOX 8-2 MG TAB 1 EACH TAB.SUBL SL SCH (12:06)
[2021-11-27 19:09] LABS: Glucose,Whole Blood 115 mg/dL (70-110)
--- NOTE | 2021-11-27 21:50 | P.PN ---
Subjective Progress Note Date: 11/27/21 Principal diagnosis: Acute exacerbation of chronic systolic congestive heart failure and acute exacerbation of COPD Patient was reevaluated today on 11/27/21, patient seems to be comfortable, resting at a bedside chair, not in any distress patient is on 3.5 L nasal cannula, O2 saturations 91%, blood pressure 100/68, again he seems to be quite comfortable labs today showed slightly elevated potassium of 5.4, renal profile is improving creatinine down to 1.13 from 1.532 days ago.. Last chest x-ray from to show decrease small right pleural effusion and cardiomegaly. No f ollow-up chest x-ray has been done since then. Ultrasound of abdomen showed no evidence of obstructive uropathy or calculi, he had a right renal cyst. Objective - Vital Signs Vital signs: Vital Signs Temp 98.3 F 11/27/21 20:00 Pulse 73 11/27/21 20:00 Resp 18 11/27/21 20:00 BP 100/68 11/27/21 20:00 Pulse Ox 91 L 11/27/21 20:00 FiO2 40 11/23/21 16:55 Intake & Output 11/27/21 11/27/21 11/28/21 06:59 18:59 06:59 Intake Total 460 360 Output Total 475 100 Balance -15 360 -100 Weight 68.1 kg Intake: Oral 460 360 Output: Urine 475 100 Other: Voiding Method Toilet Urinal # Voids 1 1 - Exam Physical Exam, revealed a 66-year-old white male in no distress on 2 L nasal cannula, continues to have a hoarse voice. HEENT:[Neck is supple.] [No neck masses.] [No thyromegaly.] [No JVD.] Chest: [Symmetrical chest expansion, scattered rhonchi and wheezes noted bilaterally. Cardiac Exam: [Normal S1 and S2, no S3 gallop, no murmur.] Abdomen: [Soft, nontender, no megaly, no rebound, no guarding, normal bowel sounds.] Extremities: [No clubbing, no edema, no cyanosis.] Neurological Exam: [No focal neurologic deficit.] Alert and oriented 3. Psychiatric: Normal mood affect and normal mental status examination. Skin: No rashes. Musculoskeletal: No deformities and no limitation in range of motion - Labs CBC & Chem 7: 11/25/21 07:13 11/27/21 09:02 Labs: Abnormal Lab Results - Last 24 Hours (Table) 11/26/21 11/27/21 11/27/21 Range/Units 23:46 06:09 09:02 Sodium 136 L (137-145) mmol/L Potassium 5.4 H (3.5-5.1) mmol/L Chloride 93 L (98-107) mmol/L Carbon Dioxide 31 H (22-30) mmol/L BUN 77 H (9-20) mg/dL Glucose 185 H (74-99) mg/dL POC Glucose (mg/dL) 220 H 144 H (70-110) mg/dL 11/27/21 11/27/21 Range/Units 12:01 17:04 Sodium (137-145) mmol/L Potassium (3.5-5.1) mmol/L Chloride (98-107) mmol/L Carbon Dioxide (22-30) mmol/L BUN (9-20) mg/dL Glucose (74-99) mg/dL POC Glucose (mg/dL) 162 H 115 H (70-110) mg/dL Assessment and Plan Assessment: Impression: Acute exacerbation of COPD Acute exacerbation of chronic systolic congestive heart failure Severe mitral regurgitation Mild pulmonary hypertension Chronic systolic congestive heart failure with ejection fraction of 20-25% Acute hypoxic respiratory failure secondary to above, improving Chronic smoker History of hepatitis C viral infection Remote history of IV drug abuse Remote history of substance abuse, patient is on Suboxone Recommendation: Continue bronchodilators Continue diuretics Arrange for home O2 Continue bronchodilators and prednisone burst and taper Smoking cessation counseling was done Continue subcu heparin for DVT prophylaxis We will likely clear the patient for discharge the next 24 hours if cleared by cardiology. Time with Patient: Less than 30
--- NOTE | 2021-11-27 22:07 | P.PN ---
Subjective 65-year-old male patient, previous history of substance abuse, IVDA and the patient is currently on Suboxone along with known history of COPD and hepatitis C viral infection, came into the emergency department because of worsening shortness of breath. He is known to have COPD. He stated that he was having worsening shortness of breath and he was seen at the urgent care from 2 days ago and he was given treatment that improved his breathing and subsequently his condition got worse and he end up coming into the emergency department. The patient has a nonproductive cough. No chest pain. No angina. No pleurisy. No hemoptysis. No fever. No chills. No previous history of cardiac disease. No myocardial infarction. Is not using any maintenance respiratory medications. The patient has also noted some increased edema lower extremity is bilaterally. No palpitations. No altered mentation. His chest x-ray was consistent with COPD along with cardiomegaly and pulmonary vascular congestion. The patient was afebrile. He was quite short of breath and immediately was placed on a BiPAP at a pressure of 12/5 cm of water. He was given IV Lasix and he diuresed more than 2 L of urine output. The patient had blood work that showed normal electrolytes, normal renal function, white cell count 9.3 with hemoglobin 10.7 and a platelet count of 207. The patient's LFTs were essentially within normal limits. ProBNP level was 6740 and the initial troponin was at 0.105. Lactic acid level was at 1.7. EKG showed a normal sinus tachycardia without any acute ischemic changes. Coagulation profile was normal. COVID 19 testing was negati ve. 11/24/2021 Patient is seen and evaluated in the room at bedside. -- patient continues to be on DuoNeb nebulized treatment [id number] and a prednisone burst taper. --Cardiology-bradley patient is stable and has been adequately diuresed and the patient is currently on oral Lasix and Aldactone. He is on metoprolol XL 25 mg by mouth twice a day and he is also on his home medications including aspirin, Lipitor and he takes Suboxone Lab review shows consistently uptrending creatinine from 0.9 upon admission up to 1.4 this morning; patient does use diuretics at home with risk of worsening renal function; patient has been cleared for discharge by pulmonary service; we will monitor patient for another 24 hours and consult nephrology to evaluate and make recommendations as needed 11/25/2021 Patient is seen and evaluated resting in bed; eager to be discharged home Vital signs are reviewed and remained stable -- The discharge was held with the patient became prerenal while being on diuretics and the patient is currently getting a BUN of 97 with a creatinine of 1.5. Note that the patient was taken off the IV Lasix and the patient's c urrently on 20 mg of Lasix orally. No nausea. No vomiting. No chest pain. Limited cough and congestion and the patient is overall stable. Home O2 has also been arranged for this patient. No syncope. White cell count of 10.4 with a hemoglobin of 11.4. Potassium is at 5.2. -- Patient has been evaluated by nephrology and recommending to continue with current dose of Lasix; liver ultrasound is ordered; continue to monitor renal function and electrolytes, strict WEST; avoid nephrotoxins and hypotension - Further recommendations after renal ultrasound was completed 11/26/2021 This is a pleasant 65 years old male who presents with acute COPD exacerbation and CHF exacerbation with ejection fraction 20-25%. Patient is been evaluated by pulmonary and cardiology service. And his breathing is improved and back close to his Baseline. Currently he is saturating 96% on 4 L blood pressure 10 0/71. Also he was started on aspirin 81 mg. Patient states currently he has no PCP but he was to see Dr. Arndt that he used to take Suboxone program but now he is buying it from the street. Patient was counseled to avoid substances addiction and risks and benefits are explained for him including but not limited to the risk of respiratory and cardiac depression and . Patient verbalized understanding. However patient developed acute kidney injury and mild hyperkalemia and his discharge was held today is also awake and asked to be discharged home. He denies chest pain or dyspnea. No other complaint. Creatinine is 1.4 today.potassium was still elevated at 5.3 . 11/27/2021 Patient clinically keep improving gradually and he is doing generally well. His breathing is stable. He still have some elements of chronic congestion related to his chronic CHF and low ejection fraction and severe MR. Patient counseled about fluid restriction and he agrees. Today his creatinine is 1.1 but potassium elevated at 5.4. We will hold Aldactone and check potassium tomorrow morning. He remains on a prednisone. Patient counseled extensively about the need to taper down and quit Suboxone. Patient states he buys it from the street. Risks including but not limited to respiratory depression and are explained and he verbalized understanding and he told me he will start cutting down into half. Possible discharge in 24-48 hours Objective - Vital Signs Vital signs: Vital Signs Temp 97.5 F L 11/27/21 03:50 Pulse 74 11/27/21 08:58 Resp 20 11/27/21 03:50 BP 114/53 11/27/21 03:50 Pulse Ox 92 L 11/27/21 08:42 FiO2 40 11/23/21 16:55 Intake & Output 11/26/21 11/27/21 11/27/21 18:59 06:59 18:59 Intake Total 1340 460 360 Output Total 600 475 Balance 740 -15 360 Weight 68.1 kg Intake: IV 20 Invasive Line 2 20 Oral 1320 460 360 Output: Urine 600 475 Other: Voiding Method Toilet Urinal # Voids 1 1 1 - Exam GENERAL: The patient is alert and oriented x3, not in any acute distress. Well developed, well nourished. HEENT: Pupils are round and equally reacting to light. EOMI. No scleral icterus. No conjunctival pallor. Normocephalic, atraumatic. No pharyngeal erythema. No thyromegaly. CARDIOVASCULAR: S1 and S2 present. No murmurs, rubs, or gallops. PULMONARY: Chest is clear to auscultation, no wheezing or crackles. ABDOMEN: Soft, nontender, nondistended, normoactive bowel sounds. No palpable organomegaly. MUSCULOSKELETAL: No joint swelling or deformity. EXTREMITIES: No cyanosis, clubbing, or pedal edema. NEUROLOGICAL: Gross neurological examination did not reveal any focal deficits. SKIN: No rashes. no petechiae. - Labs CBC & Chem 7: 11/25/21 07:13 11/27/21 09:02 Labs: Abnormal Lab Results - Last 24 Hours (Table) 11/26/21 11/27/21 11/27/21 Range/Units 23:46 06:09 09:02 Sodium 136 L (137-145) mmol/L Potassium 5.4 H (3.5-5.1) mmol/L Chloride 93 L (98-107) mmol/L Carbon Dioxide 31 H (22-30) mmol/L BUN 77 H (9-20) mg/dL Glucose 185 H (74-99) mg/dL POC Glucose (mg/dL) 220 H 144 H (70-110) mg/dL Assessment and Plan Assessment: 1. Acute exacerbation systolic CHF; patient diuresed well with IV Lasix; echocardiogram reveals EF of 20-25%; we will continue to monitor strict WEST's, daily weights, low salt and fluid restricted diet; cardiology on board and recommending to decrease Lasix down to 20 mg daily; patient is placed on low- dose Aldactone; continue with beta blockers - Unable to start ACEI/ARB/Arni secondary to hypotension - Aspirin and statin - 2. Acute exacerbation COPD; chest x-ray reveals no evidence of pneumonia or lung masses - Patient remains on bronchodilators and steroids and does show clinical improvement - CAT scan of the chest showed no evidence of any lung masses or mediastinal lymphadenopathy. The CAT scan shows small to moderate-sized right-sided pleural effusion 3. Acute kidney injury secondary to hypotension, lower dose of metoprolol at 12.5 mg and keep monitoring her blood pressure 4. Elevated troponin; possible demand ischemia related to hypoxic respiratory failure with CHF and COPD exacerbation; flat trend 5. History of Severe mitral regurgitation; outpatient follow-up 6. History of substance abuse; patient is currently on Suboxone DVT prophylaxis; SCDs/subcu heparin CODE STATUS; full code
[2021-11-27 23:47] LABS: Glucose,Whole Blood 162 mg/dL (70-110)
[2021-11-28] MEDS: INSULIN ASPART (NovoLOG) 100 UNIT/ML VIAL SQ SCH ×4 (00:29→17:51)
[2021-11-28 06:02] LABS: Glucose,Whole Blood 200 mg/dL (70-110)
[2021-11-28] MEDS: PANTOPRAZOLE 40 MG TABLET PO SCH (06:22)
[2021-11-28] MEDS: IPRATROPIUM-ALBUTEROL 3 ML NEB INHALATION SCH ×4 (08:03→20:04)
[2021-11-28] MEDS: BUDESONIDE 1 MG/2 ML NEBU INHALATION SCH ×2 (08:03→20:04)
[2021-11-28] MEDS: FORMOTEROL FUMARATE 20 MCG/2 ML NEBU INHALATION SCH ×2 (08:03→20:04)
[2021-11-28] MEDS ORDERED: SODIUM CHLORIDE 0.9% 500 ML 500 ML IV ONE (09:26)
[2021-11-28 09:47] LABS: African American GFR (CKD) >90 (>60 ml/min/1.73 sqM); Anion Gap 10 mmol/L; Blood Urea Nitrogen 56 mg/dL (9-20); Calcium 8.1 mg/dL (8.4-10.2); Carbon Dioxide 33 mmol/L (22-30); Chloride 93 mmol/L (98-107); Glucose 114 mg/dL (74-99); Non-African American GFR(CKD) 80 (>60 ml/min/1.73 sqM); Potassium 5.3 mmol/L (3.5-5.1); Sodium 136 mmol/L (137-145)
[2021-11-28 10:09] LABS: Basophils % (A) 0 %; Eosinophils % (A) 0 %; HCT 34.3 % (39.0-53.0); HGB 10.4 gm/dL (13.0-17.5); Hypochromasia Marked; Lymphocytes # (A) 1.6 k/uL (1.0-4.8); Lymphocytes % (A) 9 %; MCH 28.6 pg (25.0-35.0); MCHC 30.2 g/dL (31.0-37.0); MCV 94.5 fL (80.0-100.0); Mean Platelet Volume 11.4; Monocytes # (A) 1.7 k/uL (0-1.0); Monocytes % (A) 9 %; Neutrophils # (A) 14.9 k/uL (1.3-7.7); Neutrophils % (A) 80 %; Platelet Count 136 k/uL (150-450); RBC 3.63 m/uL (4.30-5.90); RDW 14.5 % (11.5-15.5); WBC 18.5 k/uL (3.8-10.6)
[2021-11-28] MEDS: METOPROLOL SUCCINATE (ER) 25 MG TAB.ER.24H PO SCH ×2 (10:30→20:27)
[2021-11-28] MEDS: ASPIRIN 81 MG PO SCH (10:30)
[2021-11-28] MEDS: predniSONE 20 MG TAB PO SCH (10:31)
[2021-11-28] MEDS: ATORVASTATIN 20 MG TAB PO SCH (10:31)
[2021-11-28] MEDS: BUPRENORPHINE-NALOX 8-2 MG TAB 1 EACH TAB.SUBL SL SCH (10:31)
[2021-11-28] MEDS: FUROSEMIDE 20 MG TAB PO SCH (10:31)
[2021-11-28] MEDS: HEPARIN SODIUM,PORCINE/PF 5,000 UNIT/0.5 ML SYRINGE SQ SCH (10:35)
--- NOTE | 2021-11-28 11:14 | P.PN ---
Subjective 65-year-old male patient, previous history of substance abuse, IVDA and the patient is currently on Suboxone along with known history of COPD and hepatitis C viral infection, came into the emergency department because of worsening shortness of breath. He is known to have COPD. He stated that he was having worsening shortness of breath and he was seen at the urgent care from 2 days ago and he was given treatment that improved his breathing and subsequently his condition got worse and he end up coming into the emergency department. The patient has a nonproductive cough. No chest pain. No angina. No pleurisy. No hemoptysis. No fever. No chills. No previous history of cardiac disease. No myocardial infarction. Is not using any maintenance respiratory medications. The patient has also noted some increased edema lower extremity is bilaterally. No palpitations. No altered mentation. His chest x-ray was consistent with COPD along with cardiomegaly and pulmonary vascular congestion. The patient was afebrile. He was quite short of breath and immediately was placed on a BiPAP at a pressure of 12/5 cm of water. He was given IV Lasix and he diuresed more than 2 L of urine output. The patient had blood work that showed normal electrolytes, normal renal function, white cell count 9.3 with hemoglobin 10.7 and a platelet count of 207. The patient's LFTs were essentially within normal limits. ProBNP level was 6740 and the initial troponin was at 0.105. Lactic acid level was at 1.7. EKG showed a normal sinus tachycardia without any acute ischemic changes. Coagulation profile was normal. COVID 19 testing was negati ve. 11/24/2021 Patient is seen and evaluated in the room at bedside. -- patient continues to be on DuoNeb nebulized treatment [id number] and a prednisone burst taper. --Cardiology-bradley patient is stable and has been adequately diuresed and the patient is currently on oral Lasix and Aldactone. He is on metoprolol XL 25 mg by mouth twice a day and he is also on his home medications including aspirin, Lipitor and he takes Suboxone Lab review shows consistently uptrending creatinine from 0.9 upon admission up to 1.4 this morning; patient does use diuretics at home with risk of worsening renal function; patient has been cleared for discharge by pulmonary service; we will monitor patient for another 24 hours and consult nephrology to evaluate and make recommendations as needed 11/25/2021 Patient is seen and evaluated resting in bed; eager to be discharged home Vital signs are reviewed and remained stable -- The discharge was held with the patient became prerenal while being on diuretics and the patient is currently getting a BUN of 97 with a creatinine of 1.5. Note that the patient was taken off the IV Lasix and the patient's c urrently on 20 mg of Lasix orally. No nausea. No vomiting. No chest pain. Limited cough and congestion and the patient is overall stable. Home O2 has also been arranged for this patient. No syncope. White cell count of 10.4 with a hemoglobin of 11.4. Potassium is at 5.2. -- Patient has been evaluated by nephrology and recommending to continue with current dose of Lasix; liver ultrasound is ordered; continue to monitor renal function and electrolytes, strict WEST; avoid nephrotoxins and hypotension - Further recommendations after renal ultrasound was completed 11/26/2021 This is a pleasant 65 years old male who presents with acute COPD exacerbation and CHF exacerbation with ejection fraction 20-25%. Patient is been evaluated by pulmonary and cardiology service. And his breathing is improved and back close to his Baseline. Currently he is saturating 96% on 4 L blood pressure 10 0/71. Also he was started on aspirin 81 mg. Patient states currently he has no PCP but he was to see Dr. Arndt that he used to take Suboxone program but now he is buying it from the street. Patient was counseled to avoid substances addiction and risks and benefits are explained for him including but not limited to the risk of respiratory and cardiac depression and . Patient verbalized understanding. However patient developed acute kidney injury and mild hyperkalemia and his discharge was held today is also awake and asked to be discharged home. He denies chest pain or dyspnea. No other complaint. Creatinine is 1.4 today.potassium was still elevated at 5.3 . 11/27/2021 Patient clinically keep improving gradually and he is doing generally well. His breathing is stable. He still have some elements of chronic congestion related to his chronic CHF and low ejection fraction and severe MR. Patient counseled about fluid restriction and he agrees. Today his creatinine is 1.1 but potassium elevated at 5.4. We will hold Aldactone and check potassium tomorrow morning. He remains on a prednisone. Patient counseled extensively about the need to taper down and quit Suboxone. Patient states he buys it from the street. Risks including but not limited to respiratory depression and are explained and he verbalized understanding and he told me he will start cutting down into half. Possible discharge in 24-48 hours 11/29/2011 When I saw the patient this morning in the room he was sitting in his bed, he was just coughing big piece of clot and blood. I saw it in the tissue paper. Patient was little sweaty and does not feel well. Blood pressure was 90/60, oxygen saturation wasn't 70 despite being on oxygen. Hemoglobin dropped also 11.4 down to 10.4. WBCs 18.5 but also patient is on a prednisone. Platelet count is normal. Creatinine is 0.9. Potassium is still high at 5.3 . glucose controlled. Currently 114. He remains on a prednisone 40 mg. On home dose of Suboxone. Objective - Vital Signs Vital signs: Vital Signs Temp 97.7 F 11/28/21 08:00 Pulse 56 L 11/28/21 08:37 Resp 16 11/28/21 08:00 BP 90/54 11/28/21 08:00 Pulse Ox 94 L 11/28/21 08:00 FiO2 40 11/23/21 16:55 Intake & Output 11/27/21 11/28/21 11/28/21 18:59 06:59 18:59 Intake Total 360 Output Total 950 500 Balance 360 -950 -500 Intake: Oral 360 Output: Urine 950 500 Other: Voiding Method Toilet Toilet Urinal Urinal # Voids 1 - Exam GENERAL: The patient is alert and oriented x3, not in any acute distress. Well developed, well nourished. HEENT: Pupils are round and equally reacting to light. EOMI. No scleral icterus. No conjunctival pallor. Normocephalic, atraumatic. No pharyngeal erythema. No thyromegaly. CARDIOVASCULAR: S1 and S2 present. No murmurs, rubs, or gallops. PULMONARY: Chest is clear to auscultation, no wheezing or crackles. ABDOMEN: Soft, nontender, nondistended, normoactive bowel sounds. No palpable organomegaly. MUSCULOSKELETAL: No joint swelling or deformity. EXTREMITIES: No cyanosis, clubbing, or pedal edema. NEUROLOGICAL: Gross neurological examination did not reveal any focal deficits. SKIN: No rashes. no petechiae. - Labs CBC & Chem 7: 11/28/21 08:50 11/28/21 08:50 Labs: Abnormal Lab Results - Last 24 Hours (Table) 11/27/21 11/27/21 11/27/21 Range/Units 12:01 17:04 23:45 Sodium (137-145) mmol/L Potassium (3.5-5.1) mmol/L Chloride (98-107) mmol/L Carbon Dioxide (22-30) mmol/L BUN (9-20) mg/dL Glucose (74-99) mg/dL POC Glucose (mg/dL) 162 H 115 H 162 H (70-110) mg/dL Calcium (8.4-10.2) mg/dL 11/28/21 11/28/21 Range/Units 06:00 08:50 Sodium 136 L (137-145) mmol/L Potassium 5.3 H (3.5-5.1) mmol/L Chloride 93 L (98-107) mmol/L Carbon Dioxide 33 H (22-30) mmol/L BUN 56 H (9-20) mg/dL Glucose 114 H (74-99) mg/dL POC Glucose (mg/dL) 200 H (70-110) mg/dL Calcium 8.1 L (8.4-10.2) mg/dL Assessment and Plan Assessment: 1. Acute exacerbation systolic CHF; patient diuresed well with IV Lasix; echocardiogram reveals EF of 20-25%; we will continue to monitor strict WEST's, daily weights, low salt and fluid restricted diet; cardiology team signed of the case and recommending to decrease Lasix down to 20 mg daily; hold low-dose Aldactone for hyperkalemia; continue with beta blockers - Unable to start ACEI/ARB/Arni secondary to hypotension - Aspirin and statin 2. Acute exacerbation COPD; associated with some bloody coughing up, chest x- ray reveals no evidence of pneumonia or lung masses - Patient remains on bronchodilators and steroids and does show clinical improvement - CAT scan of the chest showed no evidence of any lung masses or mediastinal lymphadenopathy. The CAT scan shows small to moderate-sized right-sided pleural effusion --we'll keep monitoring for now 3. Acute kidney injury secondary to hypotension, lower dose of metoprolol at 12.5 mg and keep monitoring her blood pressure 4. Elevated troponin; possible demand ischemia related to hypoxic respiratory failure with CHF and COPD exacerbation; flat trend 5. History of Severe mitral regurgitation; outpatient follow-up 6. History of substance abuse; patient is currently on Suboxone DVT prophylaxis; SCDs/subcu heparin CODE STATUS; full code
[2021-11-28 12:02] LABS: Glucose,Whole Blood 141 mg/dL (70-110)
--- NOTE | 2021-11-28 14:00 | P.PN ---
Subjective Progress Note Date: 11/28/21 Principal diagnosis: Acute exacerbation of chronic systolic congestive heart failure and acute exacerbation of COPD Patient was reevaluated today on 11/27/21, patient seems to be comfortable, resting at a bedside chair, not in any distress patient is on 3.5 L nasal cannula, O2 saturations 91%, blood pressure 100/68, again he seems to be quite comfortable labs today showed slightly elevated potassium of 5.4, renal profile is improving creatinine down to 1.13 from 1.532 days ago.. Last chest x-ray from to show decrease small right pleural effusion and cardiomegaly. No f ollow-up chest x-ray has been done since then. Ultrasound of abdomen showed no evidence of obstructive uropathy or calculi, he had a right renal cyst. Reevaluated today on 11/28/21, patient is doing well, patient is hemodynamically stable, continues to have leukocytosis but he is also on prednisone. His renal profile is basically unremarkable. And the patient is on prednisone at 40 mg daily remains on 6 L nasal cannula and O2 sats is 92%. Patient is not in any distress, feeling better overall. WBC count is 18.5 hemoglobin is 10.4. Electrolytes are normal except for slightly elevated potassium of 5.3 BUN is 56 creatinine 0.98 Objective - Vital Signs Vital signs: Vital Signs Temp 97.7 F 11/28/21 12:00 Pulse 64 11/28/21 12:26 Resp 18 11/28/21 12:34 BP 100/70 11/28/21 12:00 Pulse Ox 92 L 11/28/21 12:00 FiO2 40 11/23/21 16:55 Intake & Output 11/27/21 11/28/21 11/28/21 18:59 06:59 18:59 Intake Total 360 Output Total 950 500 Balance 360 -950 -500 Intake: Oral 360 Output: Urine 950 500 Other: Voiding Method Toilet Toilet Urinal Urinal # Voids 1 - Exam Physical Exam, revealed a 66-year-old white male in no distress on 6 L nasal cannula, continues to have a hoarse voice. HEENT:[Neck is supple.] [No neck masses.] [No thyromegaly.] [No JVD.] Chest: [Symmetrical chest expansion, scattered rhonchi and wheezes noted bilaterally. Cardiac Exam: [Normal S1 and S2, no S3 gallop, no murmur.] Abdomen: [Soft, nontender, no megaly, no rebound, no guarding, normal bowel sounds.] Extremities: [No clubbing, no edema, no cyanosis.] Neurological Exam: [No focal neurologic deficit.] Alert and oriented 3. Psychiatric: Normal mood affect and normal mental status examination. Skin: No rashes. Musculoskeletal: No deformities and no limitation in range of motion - Labs CBC & Chem 7: 11/28/21 08:50 11/28/21 08:50 Labs: Abnormal Lab Results - Last 24 Hours (Table) 11/27/21 11/27/21 11/28/21 Range/Units 17:04 23:45 06:00 WBC (3.8-10.6) k/uL RBC (4.30-5.90) m/uL Hgb (13.0-17.5) gm/dL Hct (39.0-53.0) % MCHC (31.0-37.0) g/dL Plt Count (150-450) k/uL Sodium (137-145) mmol/L Potassium (3.5-5.1) mmol/L Chloride (98-107) mmol/L Carbon Dioxide (22-30) mmol/L BUN (9-20) mg/dL Glucose (74-99) mg/dL POC Glucose (mg/dL) 115 H 162 H 200 H (70-110) mg/dL Calcium (8.4-10.2) mg/dL 11/28/21 11/28/21 11/28/21 Range/Units 08:50 08:50 12:00 WBC 18.5 H (3.8-10.6) k/uL RBC 3.63 L (4.30-5.90) m/uL Hgb 10.4 L (13.0-17.5) gm/dL Hct 34.3 L (39.0-53.0) % MCHC 30.2 L (31.0-37.0) g/dL Plt Count 136 L (150-450) k/uL Sodium 136 L (137-145) mmol/L Potassium 5.3 H (3.5-5.1) mmol/L Chloride 93 L (98-107) mmol/L Carbon Dioxide 33 H (22-30) mmol/L BUN 56 H (9-20) mg/dL Glucose 114 H (74-99) mg/dL POC Glucose (mg/dL) 141 H (70-110) mg/dL Calcium 8.1 L (8.4-10.2) mg/dL Assessment and Plan Assessment: Impression: Acute exacerbation of COPD Acute exacerbation of chronic systolic congestive heart failure Severe mitral regurgitation Mild pulmonary hypertension Chronic systolic congestive heart failure with ejection fraction of 20-25% Acute hypoxic respiratory failure secondary to above, improving Chronic smoker History of hepatitis C viral infection Remote history of IV drug abuse Remote history of substance abuse, patient is on Suboxone Recommendation: Continue bronchodilators Continue diuretics Arrange for home O2 Continue bronchodilators and prednisone burst and taper Smoking cessation counseling was done Continue subcu heparin for DVT prophylaxis We will clear the patient for discharge possibly to rehab if cleared by other consultants on/cardiology Time with Patient: Less than 30
[2021-11-28 14:21] LABS: Polychromasia Present
[2021-11-28 14:22] LABS: Ovalocytes Present
--- NOTE | 2021-11-28 14:54 | P.PN ---
Subjective Patient is seen for follow-up for acute kidney injury He is 65-year-old male with history of hepatitis C, COPD and history of polysubstance abuse. Patient is admitted to the hospital with complaints of shortness of breath. He denies any history of kidney diseases Patient did state that he has had trouble voiding previously. Patient had CT chest with IV contrast on 11/21/2021 which showed bilateral pleural effusions and atelectasis. Patient has been diuresed Blood pressure has been low with systolic in the 80s to 90s 24 hour urine output at 1075 mL Patient is seen for follow-up today. No complaints. Having bed side swallow eval Serum creatinine down to 1.1 today Objective - Vital Signs Vital signs: Vital Signs Temp 97.7 F 11/28/21 12:00 Pulse 64 11/28/21 12:26 Resp 18 11/28/21 12:34 BP 100/70 11/28/21 12:00 Pulse Ox 92 L 11/28/21 12:00 FiO2 40 11/23/21 16:55 Intake & Output 11/27/21 11/28/21 11/28/21 18:59 06:59 18:59 Intake Total 360 Output Total 950 500 Balance 360 -950 -500 Intake: Oral 360 Output: Urine 950 500 Other: Voiding Method Toilet Toilet Urinal Urinal # Voids 1 - Exam Patient is awake, comfortable, not in any acute distress Abdomen is soft nontender Examination of lower extremity shows no significant edema BACK WEDGER exam grossly intact - Labs CBC & Chem 7: 11/28/21 08:50 11/28/21 08:50 Labs: Abnormal Lab Results - Last 24 Hours (Table) 11/27/21 11/27/21 11/28/21 Range/Units 17:04 23:45 06:00 WBC (3.8-10.6) k/uL RBC (4.30-5.90) m/uL Hgb (13.0-17.5) gm/dL Hct (39.0-53.0) % MCHC (31.0-37.0) g/dL Plt Count (150-450) k/uL Neutrophils # (1.3-7.7) k/uL Monocytes # (0-1.0) k/uL Sodium (137-145) mmol/L Potassium (3.5-5.1) mmol/L Chloride (98-107) mmol/L Carbon Dioxide (22-30) mmol/L BUN (9-20) mg/dL Glucose (74-99) mg/dL POC Glucose (mg/dL) 115 H 162 H 200 H (70-110) mg/dL Calcium (8.4-10.2) mg/dL 11/28/21 11/28/21 11/28/21 Range/Units 08:50 08:50 12:00 WBC 18.5 H (3.8-10.6) k/uL RBC 3.63 L (4.30-5.90) m/uL Hgb 10.4 L (13.0-17.5) gm/dL Hct 34.3 L (39.0-53.0) % MCHC 30.2 L (31.0-37.0) g/dL Plt Count 136 L (150-450) k/uL Neutrophils # 14.9 H (1.3-7.7) k/uL Monocytes # 1.7 H (0-1.0) k/uL Sodium 136 L (137-145) mmol/L Potassium 5.3 H (3.5-5.1) mmol/L Chloride 93 L (98-107) mmol/L Carbon Dioxide 33 H (22-30) mmol/L BUN 56 H (9-20) mg/dL Glucose 114 H (74-99) mg/dL POC Glucose (mg/dL) 141 H (70-110) mg/dL Calcium 8.1 L (8.4-10.2) mg/dL Assessment and Plan Assessment: 1. Acute kidney injury, ATN secondary to hypotension, contrast-induced acute kidney injury and cardiorenal syndrome. Currently nonoliguric. UA is benign and ultrasound shows no evidence of obstructive uropathy. 2. Mild hyperkalemia associated with acute kidney injury 3. CHF acute on top of chronic systolic 4. Cardiomyopathy ejection fraction 20-25% 5. COPD exacerbation currently improving 7. Volume overload, improving Plan: Continue with current dose of loop diuretics. Low potassium diet. Avoid ROLO/ ARBs for now Lokelma x1 today
[2021-11-28] MEDS ORDERED: SODIUM ZIRCONIUM CYCLOSILICATE 10 GM PACKET PO ONE (15:00)
[2021-11-28 17:14] VITALS: BMI 23.5
[2021-11-28 18:04] LABS: Glucose,Whole Blood 163 mg/dL (70-110)
[2021-11-28] MEDS: ACETAMINOPHEN TAB 325 MG TAB PO PRN (20:26)
[2021-11-29 00:17] LABS: Glucose,Whole Blood 178 mg/dL (70-110)
[2021-11-29] MEDS: INSULIN ASPART (NovoLOG) 100 UNIT/ML VIAL SQ SCH ×3 (00:41→12:12)
[2021-11-29 06:14] LABS: Glucose,Whole Blood 218 mg/dL (70-110)
--- NOTE | 2021-11-29 06:20 | PN ---
PROGRESS NOTE SUBJECTIVE: The patient is seen for followup for acute kidney injury. His renal function has been slowly improving. Serum creatinine is down to 1.1 from peak of 1.53. OBJECTIVE: GENERAL: The patient is currently comfortable, not in any acute distress. VITAL SIGNS: Blood pressure 114/53, heart rate of 65 per minute, the patient is afebrile. HEART: S1, S2. LUNGS: Bilateral breath sounds are heard. ABDOMEN: Soft, nontender. LOWER EXTREMITIES: Shows no significant edema. MANAGER PACKAGING: Grossly intact. LABORATORY DATA: Labs show sodium 136, potassium 5.4, BUN 77, serum creatinine 1.13. ASSESSMENT: 1. Acute kidney injury secondary to hypotension and contrast-induced nephropathy as well as cardiorenal syndrome, currently nonoliguric. UA is benign, and ultrasound shows no evidence of obstructive uropathy. Renal function is improving. 2. Mild hyperkalemia, associated with acute kidney injury. 3. Congestive heart failure, acute on top of chronic, mainly systolic. 4. Cardiomyopathy, ejection fraction 20% to 25%. 5. Volume overload, currently improved. PLAN: Continue with current dose of Lasix and repeat labs in the a.m. Continue with loop diuretics and avoid high potassium diet. MMODL / IJN: [id number] /
[2021-11-29] MEDS: PANTOPRAZOLE 40 MG TABLET PO SCH (06:31)
[2021-11-29] MEDS: BUDESONIDE 1 MG/2 ML NEBU INHALATION SCH (07:35)
[2021-11-29] MEDS: IPRATROPIUM-ALBUTEROL 3 ML NEB INHALATION SCH ×3 (07:35→16:12)
[2021-11-29] MEDS: FORMOTEROL FUMARATE 20 MCG/2 ML NEBU INHALATION SCH (07:35)
[2021-11-29] MEDS: ASPIRIN 81 MG PO SCH (09:53)
[2021-11-29] MEDS: METOPROLOL SUCCINATE (ER) 25 MG TAB.ER.24H PO SCH (09:53)
[2021-11-29] MEDS: BUPRENORPHINE-NALOX 8-2 MG TAB 1 EACH TAB.SUBL SL SCH (09:53)
[2021-11-29] MEDS: FUROSEMIDE 20 MG TAB PO SCH (09:53)
[2021-11-29] MEDS: predniSONE 20 MG TAB PO SCH (09:54)
[2021-11-29] MEDS: ATORVASTATIN 20 MG TAB PO SCH (09:54)
[2021-11-29 10:40] VITALS: RESP 16; TEMP 97.9
--- NOTE | 2021-11-29 10:53 | P.PN ---
Subjective Patient is seen for follow-up for acute kidney injury He is 65-year-old male with history of hepatitis C, COPD and history of polysubstance abuse. Patient is admitted to the hospital with complaints of shortness of breath. He denies any history of kidney diseases Patient did state that he has had trouble voiding previously. Patient had CT chest with IV contrast on 11/21/2021 which showed bilateral pleural effusions and atelectasis. Patient has been diuresed Blood pressure has been low with systolic in the 80s to 90s 24 hour urine output at 1075 mL Patient is seen for follow-up today. No complaints. Serum creatinine down to 0.98 yesterday Objective - Vital Signs Vital signs: Vital Signs Temp 97.9 F 11/29/21 08:00 Pulse 66 11/29/21 08:02 Resp 16 11/29/21 08:00 BP 113/83 11/29/21 08:00 Pulse Ox 96 11/29/21 08:00 FiO2 40 11/23/21 16:55 Intake & Output 11/28/21 11/29/21 11/29/21 18:59 06:59 18:59 Output Total 750 350 Balance -750 -350 Weight 68.1 kg Output: Urine 750 350 Other: Voiding Method Toilet Toilet Urinal Urinal - Exam Patient is awake, comfortable, not in any acute distress Examination of the heart S1 and S2 Examination of the lungs shows bilateral breath sounds. No crackles or wheezing Abdomen is soft nontender Examination of lower extremity shows no significant edema DOCUMENT PROCESSOR exam grossly intact - Labs CBC & Chem 7: 11/28/21 08:50 11/28/21 08:50 Labs: Abnormal Lab Results - Last 24 Hours (Table) 11/28/21 11/28/21 11/28/21 Range/Units 08:50 12:00 18:03 Neutrophils # 14.9 H (1.3-7.7) k/uL Monocytes # 1.7 H (0-1.0) k/uL POC Glucose (mg/dL) 141 H 163 H (70-110) mg/dL Plasma Lactic Acid Gregor (0.7-2.0) mmol/L 11/29/21 11/29/21 11/29/21 Range/Units 00:15 02:23 06:12 Neutrophils # (1.3-7.7) k/uL Monocytes # (0-1.0) k/uL POC Glucose (mg/dL) 178 H 218 H (70-110) mg/dL Plasma Lactic Acid Gregor 2.3 H* (0.7-2.0) mmol/L Assessment and Plan Assessment: 1. Acute kidney injury, ATN secondary to hypotension, contrast-induced acute kidney injury and cardiorenal syndrome. Currently nonoliguric. UA is benign and ultrasound shows no evidence of obstructive uropathy. 2. Mild hyperkalemia associated with acute kidney injury 3. CHF acute on top of chronic systolic 4. Cardiomyopathy ejection fraction 20-25% 5. COPD exacerbation currently improving 7. Volume overload, improving Plan: Increase Lasix to 40 mg by mouth daily Low potassium diet. Avoid ROLO/ ARBs for now
--- NOTE | 2021-11-29 11:11 | CDI ---
Documentation Clarification Form Date: 11/30/2021 10:57:05 AM From: Whit Clements CCS, CCDS Admit Date: 11/20/2021 02:02:00 PM Patient Name: Richie Walker Visit Number: [id number] Discharge Date: ATTENTION: The Clinical Documentation Specialists (CDI) and [facility] Coding Staff appreciate your assistance in clarifying documentation. Please respond to the clarification below the line at the bottom and electronically sign. The CDI & [facility] Coding staff will review the response and follow-up if needed. Please note: Queries are made part of the Legal Health Record. If you have any questions, please contact the author of this message via ITS. Dr. Ramin Nur: Unspecified anemia is documented in the 11/21 Cardiology Consult and in subsequent Progress Notes on 11/22, 11/23 & 11/25. Per the 11/28 Attending Progress Note: On exam the patient was coughing, coughed up a big clot & blood. Per the 11/25 Nephrology Consult: MARIANO, ATN secondary to hypotension, contrast- induced kidney injury & cardiorenal syndrome. Additional specificity regarding the Type & Acuity of Anemia is requested. History/Risk Factors per the 11/20 H/P: COPD, Hepatitis C, Chronic back pain, Smoker, History of Marijuana and Prescription Drug Abuse. Clinical indicators: Presented to the ED on 11/20 with SOB. Has O2 at home, uses prn. Given Solumedrol injection at Urgent Care 2 days ago. Has nonproductive cough. Also has an Albuterol inhaler, has been using more than prescribed. Has mild lower extremity edema. In respiratory distress, placed on BiPAP. Admit with Acute Respiratory Insufficiency, New onset CHF, Acute Exacerbation of COPD. Hemoglobin: 11/20 10.7, 11/21: 9.8, 11/22: 10.6, 11/24: 11.0, 11/25: 11.4, 11/28: 10.4 Hematocrit: 11/20: 34.6, 11/21: 31.2, 11/22: 34.9, 11/24: 36.0, 11/25: 36.3, 11/28: 34.3 Treatment 11/20: Telemetry, O2: BiPAP, INH Duoneb x2, IV Solumedrol 125 mg x1, INH Ventolin x2, IV Mag Sulfate 100 mls @ 100 mls/hr x1, IV Valium 5 mg x1, IV Lasix 40 mg x1, IV Solumedrol 60 mg q6H, INH Pulmicort BID, INH Perforomist BID. Please clarify the Type & Acuity of Anemia if known: [ ] Acute blood loss anemia [ ] Acute on chronic blood loss anemia [ ] Chronic blood loss anemia [ ] Hemolytic anemia [ ] Drug induced anemia [ ] Anemia of chronic kidney disease [ ] Anemia of chronic disease [ ] Unable to determine [ ] Other, please specify (Template Last Revised: April 2020) Unable to determine MTDD
--- NOTE | 2021-11-29 11:18 | CDI ---
Documentation Clarification Form Date: 11/29/2021 11:12:13 AM From: Whit KirbyClementsTARIQ pacheco, CCDS Admit Date: 11/20/2021 02:02:00 PM Patient Name: Richie Walker Visit Number: [id number] Discharge Date: ATTENTION: The Clinical Documentation Specialists (CDI) and [facility] Coding Staff appreciate your assistance in clarifying documentation. Please respond to the clarification below the line at the bottom and electronically sign. The CDI & [facility] Coding staff will review the response and follow-up if needed. Please note: Queries are made part of the Legal Health Record. If you have any questions, please contact the author of this message via ITS. Dr. Kiah Singh: Per the 11/25 Nephrology Consult: MARIANO, ATN secondary to hypotension, contrast- induced kidney injury & cardiorenal syndrome. Additional specificity regarding the Stage of CKD is requested. History/Risk Factors per the 11/20 H/P: COPD, Hepatitis C, Chronic back pain, Smoker, History of Marijuana and Prescription Drug Abuse. Clinical indicators: Presented to the ED on 11/20 with SOB. Has O2 at home, uses prn. Given Solumedrol injection at Urgent Care 2 days ago. Has nonproductive cough. Also has an Albuterol inhaler, has been using more than prescribed. Has mild lower extremity edema. In respiratory distress, placed on BiPAP. Admit with Acute Respiratory Insufficiency, New onset CHF, Acute Exacerbation of COPD. LAB: BUN: 11/20: 28. 9/2: 71. 9/5: 95. 9/7: 56 Creatinine: 11/20: 0.94. 9/2: 1.37. 9/5: 1.41. /7: 0.98 GFR: 11/20: 84. 9/2: 53. 9/5: 51. 9/7: 80 Historical GFR: 10/02/2017: >90. 02/01/2018: >90 11/25 US kidney/renal & bladder: No obstructive uropathy or shadowing calculi. Right renal cyst. Treatment 11/20: Telemetry, O2: BiPAP, INH Duoneb x2, IV Solumedrol 125 mg x1, INH Ventolin x2, IV Mag Sulfate 100 mls @ 100 mls/hr x1, IV Valium 5 mg x1, IV Lasix 40 mg x1, IV Solumedrol 60 mg q6H, INH Pulmicort BID, INH Perforomist BID. Please clarify the stage of the CKD, if known: [ ] CKD Stage 1 (GFR > 90) [ ] CKD Stage 2 (GFR 60-89) [ ] CKD Stage 3 (GFR 30-59) [ ] CKD Stage 3a (GFR 45-59) [ ] CKD rule out [ ] Other, please specify [ ] Unable to determine (Template Last revised: April 2020) MTDD
[2021-11-29 11:50] LABS: Glucose,Whole Blood 190 mg/dL (70-110)
[2021-11-29] MEDS ORDERED: LEVOFLOXACIN 500 MG TAB PO SCH (12:00)
--- NOTE | 2021-11-29 12:28 | XR ---
EXAMINATION TYPE: XR chest 1V DATE OF EXAM: 11/29/2021 COMPARISON: Chest x-ray 11/28/2021 HISTORY: Abnormal chest x-ray, tachypnea, sputum production TECHNIQUE: Single frontal view of the chest is obtained. FINDINGS: Airspace disease in the left upper lobe is again noted similar to prior. The heart is enla rged. No evident pneumothorax or sizable effusion. There are overlying leads. Thoracic spondylosis is present. Patient is rotated. IMPRESSION: Left upper lobe pneumonia. Cardiomegaly. Follow-up recommended.
--- NOTE | 2021-11-29 13:01 | P.PN ---
Subjective Progress Note Date: 11/29/21 Patient was reevaluated today on 11/27/21, patient seems to be comfortable, resting at a bedside chair, not in any distress patient is on 3.5 L nasal cannula, O2 saturations 91%, blood pressure 100/68, again he seems to be quite comfortable labs today showed slightly elevated potassium of 5.4, renal profile is improving creatinine down to 1.13 from 1.532 days ago.. Last chest x-ray from to show decrease small right pleural effusion and cardiomegaly. No follow-up chest x-ray has been done since then. Ultrasound of abdomen showed no evidence of obstructive uropathy or calculi, he had a right renal cyst. Reevaluated today on 11/28/21, patient is doing well, patient is hemodynamically stable, continues to have leukocytosis but he is also on prednisone. His renal profile is basically unremarkable. And the patient is on prednisone at 40 mg daily remains on 6 L nasal cannula and O2 sats is 92%. Patient is not in any distress, feeling better overall. WBC count is 18.5 hemoglobin is 10.4. Electrolytes are normal except for slightly elevated potassium of 5.3 BUN is 56 creatinine 0.98 The patient is seen today 11/29/2021 in follow-up on the selective care unit. He is currently sitting up in bed. Awake and alert in no acute distress. He is maintaining good O2 saturations in the 90s on 4 L/m per nasal cannula. He is feeling quite a bit better. Chest x-ray showing improvement. There is a left upper lobe infiltrate. No fever or chills. No cough or congestion. Blood glucose 190. He remains on DuoNeb inhalations, Pulmicort and Perforomist inhalations, oral prednisone. Objective - Vital Signs Vital signs: Vital Signs Temp 97.9 F 11/29/21 08:00 Pulse 68 11/29/21 11:46 Resp 16 11/29/21 08:00 BP 113/83 11/29/21 08:00 Pulse Ox 92 L 11/29/21 11:36 FiO2 40 11/23/21 16:55 Intake & Output 11/28/21 11/29/21 11/29/21 18:59 06:59 18:59 Output Total 750 350 675 Balance -750 -350 -675 Weight 68.1 kg Output: Urine 750 350 675 Other: Voiding Method Toilet Toilet Urinal Urinal - Exam GENERAL EXAM: Alert, pleasant 66-year-old male patient, on 4 L nasal cannula, comfortable in no apparent distress. HEAD: Normocephalic. EYES: Normal reaction of pupils, equal size. NOSE: Clear with pink turbinates. THROAT: No erythema or exudates. NECK: No masses, no JVD. CHEST: No chest wall deformity. LUNGS: Equal air entry with few scattered rhonchi. CVS: S1 and S2 normal with no audible murmur, regular rhythm. ABDOMEN: No hepatosplenomegaly, normal bowel sounds, no guarding or rigidity. SPINE: No scoliosis or deformity SKIN: No rashes CENTRAL NERVOUS SYSTEM: No focal deficits, tone is normal in all 4 extremities. EXTREMITIES: There is no peripheral edema. No clubbing, no cyanosis. Peripheral pulses are intact. - Labs CBC & Chem 7: 11/28/21 08:50 11/28/21 08:50 Labs: Abnormal Lab Results - Last 24 Hours (Table) 11/28/21 11/28/21 11/29/21 Range/Units 08:50 18:03 00:15 Neutrophils # 14.9 H (1.3-7.7) k/uL Monocytes # 1.7 H (0-1.0) k/uL POC Glucose (mg/dL) 163 H 178 H (70-110) mg/dL Plasma Lactic Acid Gregor (0.7-2.0) mmol/L 11/29/21 11/29/21 11/29/21 Range/Units 02:23 06:12 11:42 Neutrophils # (1.3-7.7) k/uL Monocytes # (0-1.0) k/uL POC Glucose (mg/dL) 218 H 190 H (70-110) mg/dL Plasma Lactic Acid Gregor 2.3 H* (0.7-2.0) mmol/L Assessment and Plan Assessment: Acute exacerbation of chronic obstructive pulmonary disease Acute exacerbation of chronic systolic congestive heart failure Severe mitral regurgitation Mild pulmonary hypertension Chronic systolic congestive heart failure with ejection fraction 2025% Acute hypoxic respiratory failure secondary to above Chronic tobacco dependence History of hepatitis C infection History of previous IV drug abuse History of substance abuse, currently on Suboxone Plan: The patient was seen and evaluated Chest x-ray, labs and medications are reviewed Add Levaquin 500 mg daily for one week Continue prednisone taper Cleared for discharge from the pulmonary standpoint Follow-up in the office in 1-2 weeks' I have personally seen and examined the patient, performed the documentation and the assessment and plan as written. Number of minutes spent on the visit: 10.
[2021-11-29 15:10] VITALS: BP 119/73; PULSE 74
--- NOTE | 2021-11-29 15:44 | XR ---
EXAMINATION TYPE: XR chest 1V DATE OF EXAM: 11/28/2021 COMPARISON: Chest x-ray 11/22/2021 HISTORY: Hemoptysis TECHNIQUE: Single frontal view of the chest is obtained. FINDINGS: There is been interval development of increased attenuation in the left upper lobe. There may be a right pleural effusion. No evident pneumothorax. Heart is enlarged. There are overlying lead s. IMPRESSION: Correlate for pneumonia. Possible pleural effusion. Cardiomegaly.
--- NOTE | 2021-11-29 23:04 | P.DS ---
Providers Date of admission: 11/20/21 14:02 Attending physician: Jaden Philippe Consults: 11/20/21 13:56 Consult Physician Urgent Consulting Provider: Sam Kaba Consult Reason/Comments: acute copd exacerbation Do you want consulting provider notified?: Yes 11/24/21 12:40 Consult Physician Routine Consulting Provider: Kiah Singh Consult Reason/Comments: MARIANO/ CHF Do you want consulting provider notified?: Yes Primary care physician: Stated None Hospital Course: Diagnoses: 1. Acute exacerbation systolic CHF. Improved 2. Acute exacerbation COPD. Improved 3. Acute kidney injury secondary to hypotension, resolved 4. Elevated troponin; possible demand ischemia related to hypoxic respiratory failure with CHF and COPD exacerbation; flat trend 5. History of Severe mitral regurgitation; outpatient follow-up 6. History of substance abuse; patient is currently on Suboxone Hospital course: 65-year-old male patient, previous history of substance abuse, IVDA and the patient is currently on Suboxone along with known history of COPD and hepatitis C viral infection, came into the emergency department because of worsening shortness of breath. He is known to have COPD. patient was found to have acute COPD exacerbation and acute CHF with ejection fraction 20-25%. Also his creatinine was high at 1.5 on admission with acute kidney injury. Echocardiogram showed ejection fraction 20-25% also he has severe mitral regurgitation and mild pulmonary hypertension. Patient responded to treatment with IV steroids and diuretic. Patient showed interval improvement. Patient vomited by several consultants including emergency department nurse, survey chief and floor tiling professional. Patient aspirin 81 mg added by survey chief. His blood pressure was low normal and asymptomatic controlled on metoprolol 12.5 mg. Also Lasix increased upon discharge 20 mg up to 40 mg daily. Over the last 2 days patient was so eager to go home, we will monitor him closely. He has still some mild dyspnea and mild coughing phlegm with change of blood, however no change in vitals and labs.proCalcitonin is slightly elevated at 0.10. Infection with pneumonia is suspected. Levaquin 7 days is ordered by emergency department nurse. Also patient will be discharged on tapering steroids and Lasix as above. Abdomen the patient denies any other symptoms and again he was eager to be discharged today. He denies any dyspnea or chest pain. No abdominal pain or vomiting or diarrhea. No urinary complaints. Patient was cleared for discharge by all consultants including cardiology, nephrology and pulmonology. Also patient by Suboxone from the street and he does not follow PCP, patient advised against substance abuse, risks and benefits are explained for him extensively including but not limited to risk of respiratory depression and/or and he verbalized understanding and acceptance, he called me he is going to cut it into half and he will start tapering of Problems and management plan were discussed with the patient and he verbalized understanding and acceptance Patient was found stable and can be discharged home in guarded prognosis however he needs follow-up as an outpatient. Patient was instructed to follow up with PCP within one week and patient agrees (patient instructed to call medical insurance provided to find PCP within one week if he doesn't have one) Patient declined home health care Patient was instructed to follow up with Dr. Kaba emergency department nurse in 1-2 weeks, Armament Mechanic Dr. Sampson in one week and Dr. Singh floor tiling professional in 1 week. He agrees and said he will make his own appointment Physical exam Gen: patient is a AAOx3, no distress CVS: S1-S2, RRR, no murmur Lungs: B/L CTA, no wheezing Abdomen: soft, no distention, no tenderness, positive bowel sounds Extremity: no leg edema or induration Time spent more than 35 minutes Patient Condition at Discharge: Stable Plan - Discharge Summary New Discharge Prescriptions: New Furosemide [Lasix] 40 mg PO DAILY #30 tablet Levofloxacin [Levaquin] 500 mg PO Q24H 6 Days #6 tab Atorvastatin [Lipitor] 20 mg PO DAILY #30 tab predniSONE 10 mg PO DIRECTED #40 tab Pantoprazole [Protonix] 40 mg PO AC-BRKFST #30 tab Budesonide [Pulmicort] 1 mg INHALATION RT-BID #60 ml Metoprolol Succinate (ER) [Toprol XL] 12.5 mg PO BID #30 tab Aspirin 81 mg PO DAILY #30 tab bisacodyL [Dulcolax] 10 mg PO DAILY PRN 10 Days #10 tab PRN Reason: Constipation Changed Albuterol Inhaler [Ventolin Hfa Inhaler] 2 puff INHALATION RT-Q6H PRN #1 each PRN Reason: Shortness Of Breath Discontinued Buprenorphine HCl/Naloxone HCl [Suboxone 8 mg-2 mg Sl Film] 1 film SL DAILY Discharge Medication List Albuterol Inhaler [Ventolin Hfa Inhaler] 2 puff INHALATION RT-Q6H PRN #1 each 11/29/21 [Rx] Aspirin 81 mg PO DAILY #30 tab 11/29/21 [Rx] Atorvastatin [Lipitor] 20 mg PO DAILY #30 tab 11/29/21 [Rx] Budesonide [Pulmicort] 1 mg INHALATION RT-BID #60 ml 11/29/21 [Rx] Furosemide [Lasix] 40 mg PO DAILY #30 tablet 11/29/21 [Rx] Levofloxacin [Levaquin] 500 mg PO Q24H 6 Days #6 tab 11/29/21 [Rx] Metoprolol Succinate (ER) [Toprol XL] 12.5 mg PO BID #30 tab 11/29/21 [Rx] Pantoprazole [Protonix] 40 mg PO AC-BRKFST #30 tab 11/29/21 [Rx] bisacodyL [Dulcolax] 10 mg PO DAILY PRN 10 Days #10 tab 11/29/21 [Rx] predniSONE 10 mg PO DIRECTED #40 tab 11/29/21 [Rx] Follow up Appointment(s)/Referral(s): Ramin Nur MD [STAFF PHYSICIAN] - 1 Week (This is the heart doctor, they will call you to set up a follow-up appointment.) Kiah Singh MD [STAFF PHYSICIAN] - 1 Week (This is the kidney doctor who saw you, the office will call you to set up a follow-up appointment.) None,Stated [Primary Care Provider] - 1-2 days Sam Kaba MD [STAFF PHYSICIAN] - 12/05/21 2:45 pm (This is the lung doctor, your follow-up appointment is on December 05 at 2:[address] Kaba.) Activity/Diet/Wound Care/Special Instructions: May need outpatient ENT evaluation Heart healthy, low potassium diet Activity is restricted till you see your doctor please call your medical insurance provider to find a nearby primary care doctor, please call to make an appointment within 1 week Discharge Disposition: HOME SELF-CARE
--- NOTE | 2021-11-30 11:24 | FL ---
EXAMINATION TYPE: FL barium swallow w video DATE OF EXAM: 11/28/2021 COMPARISON: NONE HISTORY: Aspiration, failed bedside TECHNIQUE: Fluoroscopy. FINDINGS: Fluoroscopic guidance was provided for the procedure performed in conjunction with the [facility] pathology department. Please see complete report forthcoming from the Speech Pathology departmen t. Various consistencies from thin liquid to solids were administered. Fluoroscopy time 2 minutes 27 seconds. Number of images: 0. No aspiration or penetration was evident. No significant pooling was observed in the vallecula. There is hesitancy during swallowing. Following completion of the examination patient was offered wilbert e water. With more rapid drinking than during the examination patient had some coughing episodes. IMPRESSION: 1. Hesitancy in swallowing. 2. Larger water bolus at the end of the examination precipitated coughing. 3. No aspiration or penetration during the examination radiographically evident.
--- NOTE | 2021-12-03 07:45 | CDI ---
Documentation Clarification Form Date: 11/29/2021 11:12:00 AM From: Whit Clements CCS, CCDS Admit Date: 11/20/2021 02:02:00 PM Patient Name: Richie Walker Visit Number: [id number] Discharge Date: 11/29/2021 04:30:00 PM ATTENTION: The Clinical Documentation Specialists (CDI) and [facility] Coding Staff appreciate your assistance in clarifying documentation. Please respond to the clarification below the line at the bottom and electronically sign. The CDI & [facility] Coding staff will review the response and follow-up if needed. Please note: Queries are made part of the Legal Health Record. If you have any questions, please contact the author of this message via ITS. Dr. Kiah Singh: Per the 11/25 Nephrology Consult: MARIANO, ATN secondary to hypotension, contrast- induced kidney injury & cardiorenal syndrome. Additional specificity regarding the Stage of CKD is requested. History/Risk Factors per the 11/20 H/P: COPD, Hepatitis C, Chronic back pain, Smoker, History of Marijuana and Prescription Drug Abuse. Clinical indicators: Presented to the ED on 11/20 with SOB. Has O2 at home, uses prn. Given Solumedrol injection at Urgent Care 2 days ago. Has nonproductive cough. Also has an Albuterol inhaler, has been using more than prescribed. Has mild lower extremity edema. In respiratory distress, placed on BiPAP. Admit with Acute Respiratory Insufficiency, New onset CHF, Acute Exacerbation of COPD. LAB: BUN: 11/20: 28. 9/2: 71. 9/5: 95. 9/7: 56 Creatinine: 11/20: 0.94. 9/2: 1.37. 9/5: 1.41. 9/7: 0.98 GFR: 11/20: 84. 9/2: 53. 9/5: 51. 9/7: 80 Historical GFR: 10/02/2017: >90. 02/01/2018: >90 11/25 kidney/renal & bladder: No obstructive uropathy or shadowing calculi. Right renal cyst. Treatment 11/20: Telemetry, O2: BiPAP, INH Duoneb x2, IV Solumedrol 125 mg x1, INH Ventolin x2, IV Mag Sulfate 100 mls @ 100 mls/hr x1, IV Valium 5 mg x1, IV Lasix 40 mg x1, IV Solumedrol 60 mg q6H, INH Pulmicort BID, INH Perforomist BID. Please clarify the stage of the CKD, if known: [ ] CKD Stage 1 (GFR > 90) [ ] CKD Stage 2 (GFR 60-89) [ ] CKD Stage 3 (GFR 30-59) [ ] CKD Stage 3a (GFR 45-59) [ ] CKD rule out [ ] Other, please specify [ ] Unable to determine (Template Last revised: April 2020) no CKD MTDD
== END 2021-11-29 16:30 | disposition home or self-care (01) | DRG 291 ==
LOC: EC 10:59 → 3SCARD 14:02 → 2SICU 19:52 → 3SCARD 11-22 18:10
PROVIDERS: ADMIT Hospitalist; ATTEND Hospitalist
PROC: 5A09457 Assistance with Respiratory Ventilation, 24-96 Consecutive Hours, Continuous Positive Airway Pressure (ICD-10-PCS; principal; 2021-11-20)
DX: I11.0 Hypertensive heart disease with heart failure (principal); I50.23 Acute on chronic systolic (congestive) heart failure; J96.01 Acute respiratory failure with hypoxia; N17.0 Acute kidney failure with tubular necrosis; I24.8 Other forms of acute ischemic heart disease; J44.1 Chronic obstructive pulmonary disease with (acute) exacerbation; F11.20 Opioid dependence, uncomplicated; I47.1 Supraventricular tachycardia; J98.11 Atelectasis; I95.9 Hypotension, unspecified; I42.9 Cardiomyopathy, unspecified; I27.20 Pulmonary hypertension, unspecified; K76.89 Other specified diseases of liver; I48.91 Unspecified atrial fibrillation; Z20.822 Contact with and (suspected) exposure to COVID-19; Z28.310 Unvaccinated for COVID-19; I34.0 Nonrheumatic mitral (valve) insufficiency; E87.5 Hyperkalemia; N14.1 Nephropathy induced by other drugs, medicaments and biological substances; D64.9 Anemia, unspecified; G89.29 Other chronic pain; M54.9 Dorsalgia, unspecified; I44.0 Atrioventricular block, first degree; B19.20 Unspecified viral hepatitis C without hepatic coma; N28.1 Cyst of kidney, acquired; T50.8X5A Adverse effect of diagnostic agents, initial encounter; R49.0 Dysphonia; F12.10 Cannabis abuse, uncomplicated; F17.210 Nicotine dependence, cigarettes, uncomplicated; Z71.6 Tobacco abuse counseling; Z86.14 Personal history of Methicillin resistant Staphylococcus aureus infection; Z82.49 Family history of ischemic heart disease and other diseases of the circulatory system
CPT/HCPCS: 36415; 71045; 71260; 74230; 76770; 80048; 80053; 81003; 83605; 83735; 83880; 84145; 84443; 84484; 85025; 85027; 85610; 85730; 87040; 87635; 93005; 93306; 94640; 94660; 94760; 96374; 96375; 99291